=== PATIENT | male | born 1970 | race American Indian/Alaskan Native ===

== ENCOUNTER 2016-06-15 16:41 | Emergency (ER) | payer MEDICAID, OTHER ==
[2016-06-15 17:17] VITALS: BP 124/84
[2016-06-15] MEDS ORDERED: Sodium Chloride 0.9% 10 ML Syringe FLUSH PRN (17:51)
[2016-06-15] MEDS ORDERED: Acetaminophen/HYDROcodone 325-5 MG Tab PO ONE (18:11)
[2016-06-15 18:37] LABS: CHLORIDE,CL 99 mmol/L (101-111); SODIUM,NA 135 mmol/L (135-145)
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
== END 2016-06-15 18:55 ==
LOC: DL.ED 16:41
DX: L03.116 Cellulitis of left lower limb (principal); L03.115 Cellulitis of right lower limb; F10.20 Alcohol dependence, uncomplicated; K21.9 Gastro-esophageal reflux disease without esophagitis; E11.42 Type 2 diabetes mellitus with diabetic polyneuropathy; F17.210 Nicotine dependence, cigarettes, uncomplicated; Z88.8 Allergy status to other drugs, medicaments and biological substances
CPT/HCPCS: 36415; 80053; 82150; 83605; 85025; 87040; 96365; 99284; A9270; J3370; J7050

== ENCOUNTER 2017-01-02 07:16 | Emergency (ER) | payer MEDICAID, OTHER ==
[2017-01-02 07:26] VITALS: BP 156/95
--- NOTE | 2017-01-02 07:46 | EDM.PDOC ---
ED HPI GENERAL MEDICAL PROBLEM - General Chief Complaint: Lower Extremity Injury/Pain Stated Complaint: HOLE IN BOTTOM OF FOOT [phone] Time Seen by Provider: 01/02/17 07:41 Source of Information: Reports: Patient History Limitations: Reports: No Limitations - History of Present Illness INITIAL COMMENTS - FREE TEXT/NARRATIVE: 46 yo [place] Male c/o right foot pain, redness and skin breakdown. PMHx. Diabetes X 18yrs. PSHx. Right toe amputations X 2 Onset: Gradual Onset Date: 12/29/16 Onset Time: 12:00 Duration: Day(s): Location: Reports: Lower Extremity, Right Quality: Reports: Ache Severity: Moderate Improves with: Reports: None Worsens with: Reports: None Context: Reports: Other (Pt. has PMHx. Peripheral Vascular Disease s/p two right toe amputations) Associated Symptoms: Reports: No Other Symptoms Right Feet Pain Score (Numeric/FACES): 8 - Related Data Allergies Allergy/AdvReac Type Severity Reaction Status Date / Time propoxyphene napsylate Allergy Itching Verified 01/02/17 07:27 [From Bailey-Eliazar] fish Allergy Swelling Uncoded 01/02/17 07:27 Home Meds: Home Meds Insulin Aspart [NovoLOG] 8 units SQ TID 09/06/14 [History] Insulin Detemir [Levemir] 15 units SQ BID 09/06/14 [History] Aspirin 1 tab CHEW DAILY 11/30/14 [History] Ibuprofen [Ibuprofen] 1 tab PO TID 11/30/14 [History] Pregabalin [Lyrica] 1 tab PO TID 11/30/14 [History] Lisinopril 10 mg PO DAILY 06/15/16 [History] Venlafaxine [Effexor] 250 mg PO DAILY 06/15/16 [History] Acetaminophen [Tylenol] 650 mg PO ASDIRECTED PRN 01/02/17 [History] Past Medical History Other HEENT History: blurred vision at times Cardiovascular History: Reports: Hypertension Respiratory History: Reports: None Gastrointestinal History: Reports: None Genitourinary History: Reports: None Musculoskeletal History: Reports: Amputation Neurological History: Reports: None Psychiatric History: Reports: None Endocrine/Metabolic History: Reports: Diabetes, Type II Hematologic History: Reports: None Immunologic History: Reports: None Oncologic (Cancer) History: Reports: None Dermatologic History: Reports: None - Infectious Disease History Infectious Disease History: Reports: Chicken Pox - Past Surgical History Head Surgeries/Procedures: Reports: None Musculoskeletal Surgical History: Reports: Amputation, Arthroscopic Knee, Other (See Below) Social & Family History - Tobacco Use Smoking Status *Q: Current Every Day Smoker Years of Tobacco use: 30 Packs/Tins Daily: 0.5 Used Tobacco, but Quit: No Month Tobacco Last Used: 2011 Second Hand Smoke Exposure: No - Caffeine Use Caffeine Use: Reports: Coffee - Alcohol Use Days Per Week of Alcohol Use: 1 Number of Drinks Per Day: 12 Total Drinks Per Week: 12 - Recreational Drug Use Recreational Drug Use: No Recreational Drug Type: Reports: Marijuana/Hashish Recreational Drug Use Frequency: Not Used In Over 6 Months - Living Situation & Occupation Living situation: Reports: Other Review of Systems - Review of Systems Review Of Systems: See Below Constitutional: Reports: No Symptoms Eyes: Reports: No Symptoms Ears: Reports: No Symptoms Nose: Reports: No Symptoms Mouth/Throat: Reports: No Symptoms Respiratory: Reports: No Symptoms Cardiovascular: Reports: No Symptoms GI/Abdominal: Reports: No Symptoms Genitourinary: Reports: No Symptoms Musculoskeletal: Reports: Foot Pain (right foot) Skin: Reports: Erythema Neurological: Reports: No Symptoms Psychiatric: Reports: No Symptoms ED EXAM, GENERAL - Physical Exam Exam: See Below Exam Limited By: No Limitations General Appearance: Alert, WD/WN, No Apparent Distress Eye Exam: Bilateral Eye: PERRL Ears: Normal External Exam Nose: Normal Inspection Throat/Mouth: Normal Inspection Head: Atraumatic Neck: Normal Inspection Respiratory/Chest: No Respiratory Distress Cardiovascular: Normal Peripheral Pulses Peripheral Pulses: 1+: Dorsalis Pedis (L), Dorsalis Pedis (R) GI/Abdominal: Normal Bowel Sounds Back Exam: Normal Inspection Extremities: Slow Capillary Refill (right low extremity), Redness (right dorsal foot) Neurological: Alert, Oriented, CN II-XII Intact, Normal Cognition Psychiatric: Normal Affect Skin Exam: Erythema, Wound/Incision (right foot w/ 3cm shallow skin ulcer w/o drainage) Course - Vital Signs Last Recorded V/S: Last Vital Signs Temp 36.6 C 01/02/17 07:21 Pulse 80 01/02/17 07:21 Resp 16 01/02/17 07:21 BP 156/95 H 01/02/17 07:21 Pulse Ox 96 01/02/17 07:21 - Orders/Labs/Meds Orders: Active Orders 24 hr Category Date Time Status CULTURE WOUND [RM] Stat Lab 01/02/17 07:42 Uncollected Labs: Laboratory Tests 01/02/17 Range/Units 07:55 WBC 12.0 H (5.0-10.0) 10^3/uL RBC 4.08 L (4.6-6.2) 10^6/uL Hgb 12.1 L (14.0-18.0) g/dL Hct 34.8 L (40.0-54.0) % MCV 85.3 (80-100) fL MCH 29.7 (27.0-34.0) pg MCHC 34.8 (33.0-35.0) g/dL Plt Count 203 D (150-450) 10^3/uL Neut % (Auto) 71.2 (42.2-75.2) % Lymph % (Auto) 19.9 L (20.5-50.1) % [place] % (Auto) 6.6 (2-8) % Eos % (Auto) 2.1 (1.0-3.0) % Baso % (Auto) 0.2 (0.0-1.0) % Departure - Departure Time of Disposition: 08:11 Disposition: Home, Self-Care 01 Condition: Fair Clinical Impression: Cellulitis of foot Leukocytosis Qualifiers: Leukocytosis type: unspecified Qualified Code(s): D72.829 - Elevated white blood cell count, unspecified Foreign body in foot, right Qualifiers: Encounter type: initial encounter Qualified Code(s): S90.851A - Superficial foreign body, right foot, initial encounter - Discharge Information Forms: ED Department Discharge Additional Instructions: Keep area clean and dry Soak Once Daily Take Oral Antibiotic AUGMENTING 875mg BID # 20 ( complete all antibiotic) Apply Antibiotic ointment to area BID # 66g F/U w/ Podiatry Dr. Pinon @ [phone] ( Call for appointment) - My Orders Last 24 Hours: My Active Orders 01/02/17 07:42 CULTURE WOUND [RM] Stat - Assessment/Plan Last 24 Hours: My Active Orders 01/02/17 07:42 CULTURE WOUND [RM] Stat
[2017-01-02] MEDS ORDERED: Mupirocin Oint 22 GM Tube TOP ONE (08:17)
== END 2017-01-02 08:39 | disposition home or self-care (01) ==
LOC: DL.ED 07:16
DX: S90.851A Superficial foreign body, right foot, initial encounter (principal); L03.115 Cellulitis of right lower limb; D72.829 Elevated white blood cell count, unspecified; I10 Essential (primary) hypertension; E11.9 Type 2 diabetes mellitus without complications; F17.210 Nicotine dependence, cigarettes, uncomplicated; Z88.8 Allergy status to other drugs, medicaments and biological substances; Z91.013 Allergy to seafood; Z79.4 Long term (current) use of insulin; Z79.82 Long term (current) use of aspirin; Z79.899 Other long term (current) drug therapy; W45.8XXA Other foreign body or object entering through skin, initial encounter
CPT/HCPCS: 36415; 73620; 85025; 87070; 87077; 99284; A9270; 87186

== ENCOUNTER 2017-01-14 00:07 | Emergency (ER) | payer MEDICAID, OTHER ==
[2017-01-14 00:08] VITALS: BP 132/90
[2017-01-14] MEDS ORDERED: Acetaminophen/oxyCODONE 325-5 MG Tab PO ONE ×2 (00:08→01:06)
--- NOTE | 2017-01-14 00:54 | EDM.PDOC ---
ED HPI GENERAL MEDICAL PROBLEM - General Chief Complaint: Skin Complaint Stated Complaint: IN BY AMBULANCE Time Seen by Provider: 01/14/17 00:45 Source of Information: Reports: Patient History Limitations: Reports: No Limitations - History of Present Illness INITIAL COMMENTS - FREE TEXT/NARRATIVE: ED via [facility]. 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 Has been on antibiotic for infection. Is packing wound daily Right Feet Pain Score (Numeric/FACES): 8 - Related Data Allergies Allergy/AdvReac Type Severity Reaction Status Date / Time propoxyphene napsylate Allergy Itching Verified 01/14/17 00:07 [From Bailey-N] fish Allergy Swelling Uncoded 01/14/17 00:07 Home Meds: Home Meds Insulin Aspart [NovoLOG] 8 units SQ TID 09/06/14 [History] Insulin Detemir [Levemir] 15 units SQ BID 09/06/14 [History] Aspirin 1 tab CHEW DAILY 11/30/14 [History] Ibuprofen [Ibuprofen] 1 tab PO TID 11/30/14 [History] Pregabalin [Lyrica] 1 tab PO TID 11/30/14 [History] Lisinopril 10 mg PO DAILY 06/15/16 [History] Venlafaxine [Effexor] 250 mg PO DAILY 06/15/16 [History] Acetaminophen [Tylenol] 650 mg PO ASDIRECTED PRN 01/02/17 [History] Amoxicillin/Clavulanate K [Augmentin 875 MG/125 MG] 1 tab PO ASDIRECTED [History] Past Medical History Other HEENT History: blurred vision at times Cardiovascular History: Reports: Hypertension Respiratory History: Reports: None Gastrointestinal History: Reports: None Genitourinary History: Reports: None Musculoskeletal History: Reports: Amputation Neurological History: Reports: None Psychiatric History: Reports: None Endocrine/Metabolic History: Reports: Diabetes, Type II Hematologic History: Reports: None Immunologic History: Reports: None Oncologic (Cancer) History: Reports: None Dermatologic History: Reports: None - Infectious Disease History Infectious Disease History: Reports: Chicken Pox - Past Surgical History Head Surgeries/Procedures: Reports: None Musculoskeletal Surgical History: Reports: Amputation, Arthroscopic Knee, Other (See Below) Social & Family History - Tobacco Use Smoking Status *Q: Light Tobacco Smoker Years of Tobacco use: 20 Packs/Tins Daily: 0.5 Used Tobacco, but Quit: No Month Tobacco Last Used: 2011 Second Hand Smoke Exposure: No - Caffeine Use Caffeine Use: Reports: Coffee - Alcohol Use Days Per Week of Alcohol Use: 1 Number of Drinks Per Day: 12 Total Drinks Per Week: 12 - Recreational Drug Use Recreational Drug Use: No Recreational Drug Type: Reports: Marijuana/Hashish Recreational Drug Use Frequency: Not Used In Over 6 Months - Living Situation & Occupation Living situation: Reports: Other ED ROS GENERAL - Review of Systems Review Of Systems: See Below Constitutional: Reports: No Symptoms HEENT: Reports: No Symptoms Respiratory: Reports: No Symptoms Cardiovascular: Reports: No Symptoms Endocrine: Reports: No Symptoms GI/Abdominal: Reports: No Symptoms Skin: Reports: Wound (increased size, new on botom fo right foot) ED EXAM, SKIN/RASH Exam: See Below Exam Limited By: No Limitations General Appearance: Alert, Mild Distress Eye Exam: Bilateral Eye: EOMI Ears: Normal External Exam Nose: Normal Inspection Throat/Mouth: Normal Voice Respiratory/Chest: No Respiratory Distress, Lungs Clear, Normal Breath Sounds Cardiovascular: Normal Peripheral Pulses, Regular Rate, Rhythm GI/Abdominal: Soft, Non-Tender Back Exam: Full Range of Motion Extremities: No: Normal Inspection, Redness Neurological: Alert, Oriented, Normal Cognition Psychiatric: Normal Affect Skin: Warm Location, Skin: Lower Extremity, Right Characteristics: Other (5mm x 7mm open cavity between 1st and 2nd toes right foot. pea size callous open plantar right weeping clear yellow fluid, no errythma, no odor to wound, extremity warm slight swelling to right forefoot in comparison to left. no redness. wound edges and extermity clean. ) Associated features: Tenderness, Induration, Weeping Course - Vital Signs Last Recorded V/S: Last Vital Signs Temp 97.4 F 01/14/17 00:07 Pulse 80 01/14/17 00:07 Resp 16 01/14/17 00:07 BP 132/90 01/14/17 00:07 Pulse Ox 99 01/14/17 00:07 - Orders/Labs/Meds Labs: Laboratory Tests 01/14/17 01/14/17 01/14/17 Range/Units 00:35 00:35 00:40 WBC 7.0 (5.0-10.0) 10^3/uL RBC 4.19 L (4.6-6.2) 10^6/uL Hgb 12.5 L (14.0-18.0) g/dL Hct 36.5 L (40.0-54.0) % MCV 87.1 (80-100) fL MCH 29.8 (27.0-34.0) pg MCHC 34.2 (33.0-35.0) g/dL Plt Count 272 (150-450) 10^3/uL Neut % (Auto) 64.6 (42.2-75.2) % Lymph % (Auto) 26.6 (20.5-50.1) % [place] % (Auto) 6.0 (2-8) % Eos % (Auto) 2.7 (1.0-3.0) % Baso % (Auto) 0.1 (0.0-1.0) % Sodium 137 (135-145) mmol/L Potassium 3.8 (3.6-5.0) mmol/L Chloride 103 (101-111) mmol/L Carbon Dioxide 27.0 (21.0-31.0) mmol/L Anion Gap 10.8 BUN 12 (7-18) mg/dL Creatinine 0.9 (0.6-1.3) mg/dL Est Cr Clr Drug Dosing 113.77 mL/min Estimated GFR (MDRD) > 60 BUN/Creatinine Ratio 13.33 Glucose 160 H (74-105) mg/dL Lactic Acid 1.2 (0.5-2.2) mmol/L Calcium 9.3 (8.4-10.2) mg/dl Total Bilirubin 0.5 (0.2-1.0) mg/dL AST 24 (10-42) IU/L ALT 21 (10-60) IU/L Alkaline Phosphatase 79 (42-121) IU/L Total Protein 8.6 H (6.7-8.2) g/dl Albumin 3.9 (3.2-5.5) g/dl Globulin 4.7 Albumin/Globulin Ratio 0.83 Meds: Medications Discontinued Medications Generic Name Dose Route Start Last Admin Trade Name Freq PRN Reason Stop Dose Admin Oxycodone/Acetaminophen 1 tab 01/14/17 01:06 01/14/17 01:10 Percocet 325-5 Mg PO 01/14/17 01:07 1 tab ONETIME ONE Administration Oxycodone/Acetaminophen Confirm 01/14/17 01:55 01/14/17 02:51 Percocet 325-5 Mg Administered 01/14/17 01:56 Not Given Dose 2 tab .ROUTE .STK-MED ONE - Radiology Interpretation Free Text/Narrative:: xray right foot, no osteomylitis - Re-Assessments/Exams Free Text/Narrative Re-Assessment/Exam: 01/15/17 03:15 wounds examined. cleansed, packed with moistened sterile 1/4 packing . apprximately 2" length to wound between toes. covered with telfa and kerlix. Departure - Departure Time of Disposition: 01:46 Disposition: Home, Self-Care 01 Condition: Fair Clinical Impression: Diabetic peripheral neuropathy, Insulin dependent diabetes mellitus Diabetic foot ulcer Qualifiers: Diabetic foot ulcer location: other Diabetes mellitus type: type 1 Laterality: right Non-pressure ulcer stage: unspecified non-pressure ulcer stage Qualified Code(s): E10.621 - Type 1 diabetes mellitus with foot ulcer Foot ulcer, right Qualifiers: Non-pressure ulcer stage: unspecified non-pressure ulcer stage Qualified Code(s ): L97.519 - Non-pressure chronic ulcer of other part of right foot with unspecified severity - Discharge Information Instructions: Diabetes and Foot Care Referrals: PCP,Unobtain [Primary Care Provider] - Forms: ED Department Discharge Additional Instructions: continue wound packing as instructed non weight bearing to right foot- use crutches follow up with surgeon in [place]
[2017-01-14 01:05] LABS: CHLORIDE,CL 103 mmol/L (101-111); SODIUM,NA 137 mmol/L (135-145)
[2017-01-14] MEDS ORDERED: Acetaminophen/oxyCODONE 325-5 MG Tab ONE (01:55)
== END 2017-01-14 02:00 | disposition home or self-care (01) ==
LOC: DL.ED 00:07
DX: E11.621 Type 2 diabetes mellitus with foot ulcer (principal); L97.519 Non-pressure chronic ulcer of other part of right foot with unspecified severity; I10 Essential (primary) hypertension; F17.210 Nicotine dependence, cigarettes, uncomplicated; E11.40 Type 2 diabetes mellitus with diabetic neuropathy, unspecified; Z79.899 Other long term (current) drug therapy; Z88.8 Allergy status to other drugs, medicaments and biological substances; Z91.013 Allergy to seafood; Z79.4 Long term (current) use of insulin
CPT/HCPCS: 36415; 73630; 80053; 83605; 85025; 87040; 87070; 87077; 87186; 99283; A9270

== ENCOUNTER 2017-04-10 12:16 | Emergency (ER) | payer MEDICAID, OTHER ==
[2017-04-10 12:28] VITALS: BP 113/71
--- NOTE | 2017-04-10 12:49 | EDM.PDOC ---
ED HPI GENERAL MEDICAL PROBLEM - General Chief Complaint: Lower Extremity Injury/Pain Stated Complaint: CAME BY [facility] Time Seen by Provider: 04/10/17 12:49 Source of Information: Reports: Patient, EMS, Old Records, Provider (Dr. Tye Pinon), RN, RN Notes Reviewed History Limitations: Reports: No Limitations - History of Present Illness INITIAL COMMENTS - FREE TEXT/NARRATIVE: Arrives by ambulance with c/o right foot pain. Pt being followed by Tye Pinon DPM for chronic Rt foot diabetic ulcer and Hx of osteomyelitis. I called Dr. Pinon to obtain Hx of the pt's tx as he didn't seem to have an understanding himself. He missed his last appt. with her, and missed his Rt foot MRI, but was able to reschedule the MRI and had it yesterday. He has ran out of pain medication, and that is his main complaint today. Pt denies fever, chills, N/V, or redness to the Rt lower leg. He admits to ongoing drainage from the Rt foot ulcer. Onset: Unknown/Unsure Duration: Chronic Location: Reports: Lower Extremity, Right Quality: Reports: Ache Severity: Severe Improves with: Reports: None Worsens with: Reports: Other (wt bearing/walking) Associated Symptoms: Reports: No Other Symptoms Treatments GM: Reports: Other (see below) Right Feet Pain Score (Numeric/FACES): 8 - Related Data Allergies Allergy/AdvReac Type Severity Reaction Status Date / Time propoxyphene napsylate Allergy Itching Verified 01/14/17 00:07 [From Mitchell] fish Allergy Swelling Uncoded 01/14/17 00:07 Home Meds: Home Meds Insulin Aspart [NovoLOG] 8 units SQ TID 09/06/14 [History] Insulin Detemir [Levemir] 15 units SQ BID 09/06/14 [History] Aspirin 1 tab CHEW DAILY 11/30/14 [History] Ibuprofen [Ibuprofen] 1 tab PO TID 11/30/14 [History] Pregabalin [Lyrica] 1 tab PO TID 11/30/14 [History] Lisinopril 10 mg PO DAILY 06/15/16 [History] Venlafaxine [Effexor] 250 mg PO DAILY 06/15/16 [History] Acetaminophen [Tylenol] 650 mg PO ASDIRECTED PRN 01/02/17 [History] Amoxicillin/Clavulanate K [Augmentin 875 MG/125 MG] 1 tab PO ASDIRECTED [History] Past Medical History Other HEENT History: blurred vision at times Cardiovascular History: Reports: Hypertension Respiratory History: Reports: None Gastrointestinal History: Reports: None Genitourinary History: Reports: None Musculoskeletal History: Reports: Amputation Neurological History: Reports: None Psychiatric History: Reports: None Endocrine/Metabolic History: Reports: Diabetes, Type II Hematologic History: Reports: None Immunologic History: Reports: None Oncologic (Cancer) History: Reports: None Dermatologic History: Reports: None - Infectious Disease History Infectious Disease History: Reports: Chicken Pox - Past Surgical History Head Surgeries/Procedures: Reports: None Musculoskeletal Surgical History: Reports: Amputation, Arthroscopic Knee, Other (See Below) Social & Family History - Family History Family Medical History: Noncontributory - Tobacco Use Smoking Status *Q: Current Every Day Smoker Years of Tobacco use: 30 Packs/Tins Daily: 0.5 Used Tobacco, but Quit: No Month Tobacco Last Used: 2011 Second Hand Smoke Exposure: No - Caffeine Use Caffeine Use: Reports: Coffee - Alcohol Use Days Per Week of Alcohol Use: 1 Number of Drinks Per Day: 12 Total Drinks Per Week: 12 - Recreational Drug Use Recreational Drug Use: No Recreational Drug Type: Reports: Marijuana/Hashish Recreational Drug Use Frequency: Not Used In Over 6 Months - Living Situation & Occupation Living situation: Reports: Other Review of Systems - Review of Systems Review Of Systems: ROS reveals no pertinent complaints other than HPI. ED EXAM, GENERAL - Physical Exam Exam: See Below Exam Limited By: No Limitations General Appearance: Alert, No Apparent Distress Throat/Mouth: Normal Voice Respiratory/Chest: No Respiratory Distress Extremities: Increased Warmth (slight increased warmth of Rt lower leg compared to the left, but no erythema or swelling), Other (Rt foot dressing not removed for exam, MRI report from 04/08/17 was reviewed and provided suff. clarification of jing involvment of the infection that would not be apparent on exam.) Neurological: Alert, Oriented, No Motor/Sensory Deficits Psychiatric: Normal Mood Course - Vital Signs Last Recorded V/S: Last Vital Signs Temp 36.8 C 04/10/17 12:21 Pulse 78 04/10/17 12:21 Resp 16 04/10/17 12:21 BP 113/71 04/10/17 12:21 Pulse Ox 100 04/10/17 12:21 - Orders/Labs/Meds Orders: Active Orders 24 hr Category Date Time Status DME for Discharge [COMM] Routine Oth 04/10/17 13:01 Ordered Departure - Departure Time of Disposition: 13:01 Disposition: Home, Self-Care 01 Condition: Fair Clinical Impression: Osteomyelitis of toe of right foot, Right foot pain, DM type 2, uncontrolled, with lower extremity ulcer - Discharge Information Instructions: Crutch Use, [id number], Bone and Joint Infections, Adult, Pain Medicine Instructions, [id number] Forms: ED Department Discharge Additional Instructions: Rx: Percocet 5mg/325mg *Do not drive while under the influence of this medication. Use crutches for non-weight bearing on the right foot. Follow up with Dr. Tye Pinon in podiatry clinic on Friday, as scheduled. - My Orders Last 24 Hours: My Active Orders 04/10/17 13:01 DME for Discharge [COMM] Routine - Assessment/Plan Last 24 Hours: My Active Orders 04/10/17 13:01 DME for Discharge [COMM] Routine
== END 2017-04-10 13:19 | disposition home or self-care (01) ==
LOC: DL.ED 12:16
DX: E11.69 Type 2 diabetes mellitus with other specified complication (principal); M86.9 Osteomyelitis, unspecified; E11.621 Type 2 diabetes mellitus with foot ulcer; L97.519 Non-pressure chronic ulcer of other part of right foot with unspecified severity; I10 Essential (primary) hypertension; F17.210 Nicotine dependence, cigarettes, uncomplicated; Z91.013 Allergy to seafood; Z79.899 Other long term (current) drug therapy; Z88.8 Allergy status to other drugs, medicaments and biological substances; Z79.82 Long term (current) use of aspirin; Z79.4 Long term (current) use of insulin
CPT/HCPCS: 99284

== ENCOUNTER 2017-04-14 13:36 | Inpatient (IN) | payer MEDICAID, OTHER ==
--- NOTE | 2017-04-14 13:49 | EDM.PDOC ---
ED HPI GENERAL MEDICAL PROBLEM - General Stated Complaint: IN BY AMBULANCE Time Seen by Provider: 04/14/17 13:35 Source of Information: Reports: Patient, EMS History Limitations: Reports: No Limitations - History of Present Illness INITIAL COMMENTS - FREE TEXT/NARRATIVE: This 46 yo male patient reports to the ED via [facility] with increased pain, swelling and drainage from his right foot (great toe and 2nd toe). The patient reports his symptoms started 2 weeks ago. The patient was seen in the ED last week and was supposed to see Dr. Pinon today. The patient was attempting to get to the podiatry appointment, but was unable to ambulate due to the pain. Dr. Pinon was consulted and agreed to come to the ED to evaluate the patient. The patient reports he took his last pain medication today, and could not take the pain any longer. Duration: Week(s): (2), Constant, Getting Worse Location: Reports: Lower Extremity, Right Quality: Reports: Ache, Stabbing Severity: Severe Improves with: Reports: None Worsens with: Reports: None Right Feet Pain Score (Numeric/FACES): 10 - Related Data Allergies Allergy/AdvReac Type Severity Reaction Status Date / Time propoxyphene napsylate Allergy Itching Verified 04/14/17 13:42 [From Mitchell] fish Allergy Swelling Uncoded 01/14/17 00:07 Home Meds: Home Meds Insulin Aspart [NovoLOG] 8 units SQ TID 09/06/14 [History] Insulin Detemir [Levemir] 15 units SQ BID 09/06/14 [History] Aspirin 1 tab CHEW DAILY 11/30/14 [History] Ibuprofen [Ibuprofen] 1 tab PO TID 11/30/14 [History] Pregabalin [Lyrica] 1 tab PO TID 11/30/14 [History] Lisinopril 10 mg PO DAILY 06/15/16 [History] Venlafaxine [Effexor] 250 mg PO DAILY 06/15/16 [History] Acetaminophen [Tylenol] 650 mg PO ASDIRECTED PRN 01/02/17 [History] Amoxicillin/Clavulanate K [Augmentin 875 MG/125 MG] 1 tab PO ASDIRECTED [History] Past Medical History Other HEENT History: blurred vision at times Cardiovascular History: Reports: Hypertension Respiratory History: Reports: None Gastrointestinal History: Reports: None Genitourinary History: Reports: None Musculoskeletal History: Reports: Amputation Neurological History: Reports: None Psychiatric History: Reports: None Endocrine/Metabolic History: Reports: Diabetes, Type II Hematologic History: Reports: None Immunologic History: Reports: None Oncologic (Cancer) History: Reports: None Dermatologic History: Reports: None - Infectious Disease History Infectious Disease History: Reports: Chicken Pox - Past Surgical History Head Surgeries/Procedures: Reports: None Musculoskeletal Surgical History: Reports: Amputation, Arthroscopic Knee, Other (See Below) Social & Family History - Family History Family Medical History: Noncontributory - Tobacco Use Smoking Status *Q: Current Every Day Smoker Years of Tobacco use: 30 Packs/Tins Daily: 0.5 Used Tobacco, but Quit: No Month Tobacco Last Used: 2011 Second Hand Smoke Exposure: No - Caffeine Use Caffeine Use: Reports: Coffee - Alcohol Use Days Per Week of Alcohol Use: 1 Number of Drinks Per Day: 12 Total Drinks Per Week: 12 - Recreational Drug Use Recreational Drug Use: No Recreational Drug Type: Reports: Marijuana/Hashish Recreational Drug Use Frequency: Not Used In Over 6 Months - Living Situation & Occupation Living situation: Reports: Other Review of Systems - Review of Systems Review Of Systems: ROS reveals no pertinent complaints other than HPI. ED EXAM, GENERAL - Physical Exam Exam: See Below Exam Limited By: No Limitations General Appearance: Alert, WD/WN, Moderate Distress Eye Exam: Bilateral Eye: EOMI, Normal Inspection, PERRL Ears: Normal External Exam, Normal Canal, Hearing Grossly Normal, Normal TMs Nose: Normal Inspection, Normal Mucosa, No Blood Throat/Mouth: Normal Inspection, Normal Lips, Normal Teeth, Normal Gums, Normal Oropharynx, Normal Voice, No Airway Compromise Head: Atraumatic, Normocephalic Neck: Normal Inspection, Supple, Non-Tender, Full Range of Motion Respiratory/Chest: No Respiratory Distress, Lungs Clear, Normal Breath Sounds, No Accessory Muscle Use, Chest Non-Tender Cardiovascular: Normal Peripheral Pulses, Regular Rate, Rhythm, No Edema, No Gallop, No JVD, No Murmur, No Rub GI/Abdominal: Normal Bowel Sounds, Soft, Non-Tender, No Organomegaly, No Distention, No Abnormal Bruit, No Mass (Male) Exam: Deferred Rectal (Males) Exam: Deferred Back Exam: Normal Inspection, Full Range of Motion, NT Extremities: Other (Swelling of the right great toe and 2nd toe with bloody purulent drainage. ) Neurological: Alert, Oriented, CN II-XII Intact, Normal Cognition, Normal Gait, Normal Reflexes, No Motor/Sensory Deficits Psychiatric: Normal Affect, Normal Mood Skin Exam: Wound/Incision Lymphatic: No Adenopathy Course - Vital Signs Last Recorded V/S: Last Vital Signs Temp 36.7 C 04/14/17 13:38 Pulse 65 04/14/17 13:38 Resp 16 04/14/17 13:38 BP 177/71 H 04/14/17 13:38 Pulse Ox 100 04/14/17 13:38 - Orders/Labs/Meds Orders: Active Orders 24 hr Category Date Time Status CULTURE BLOOD [BC] Stat Lab 04/14/17 13:40 Received CULTURE BLOOD [BC] Stat Lab 04/14/17 13:45 Received DRUG SCREEN URINE BIORAD [URCHEM] Stat Lab 04/14/17 13:32 Uncollected UA W/MICROSCOPIC [URIN] Stat Lab 04/14/17 13:32 Uncollected Vancomycin 1.5 gm Med 04/14/17 14:01 Ordered Sodium Chloride 0.9% [Normal Saline] 500 ml IV ONETIME Blood Culture x2 Reflex Set [OM.PC] Stat Oth 04/14/17 13:31 Ordered Medication Orders Vancomycin HCl 1.5 gm/ Sodium (Chloride) 500 mls @ 334 mls/hr IV ONETIME ONE Stop: 04/14/17 15:30 Last Admin: 04/14/17 14:21 Dose: 334 mls/hr Labs: Laboratory Tests 04/14/17 04/14/17 04/14/17 Range/Units 13:40 13:40 13:40 WBC 10.7 H (5.0-10.0) 10^3/uL RBC 4.68 (4.6-6.2) 10^6/uL Hgb 13.3 L (14.0-18.0) g/dL Hct 39.0 L (40.0-54.0) % MCV 83.3 D (80-100) fL MCH 28.4 (27.0-34.0) pg MCHC 34.1 (33.0-35.0) g/dL Plt Count 382 D (150-450) 10^3/uL Neut % (Auto) 81.2 H (42.2-75.2) % Lymph % (Auto) 12.8 L (20.5-50.1) % [place] % (Auto) 4.3 (2-8) % Eos % (Auto) 1.5 (1.0-3.0) % Baso % (Auto) 0.2 (0.0-1.0) % Add Manual Diff Yes Neutrophils % (Manual) 87 H (42-75) % Lymphocytes % (Manual) 10 L (20-50) % Monocytes % (Manual) 2 (2-8) % Eosinophils % (Manual) 1 (1-3) % Sodium 132 L (135-145) mmol/L Potassium 4.0 (3.6-5.0) mmol/L Chloride 99 L (101-111) mmol/L Carbon Dioxide 25.0 (21.0-31.0) mmol/L Anion Gap 12.0 BUN 11 (7-18) mg/dL Creatinine 0.9 (0.6-1.3) mg/dL Est Cr Clr Drug Dosing 113.92 mL/min Estimated GFR (MDRD) > 60 BUN/Creatinine Ratio 12.22 Glucose 309 H (74-105) mg/dL Lactic Acid 1.5 (0.5-2.2) mmol/L Calcium 8.7 (8.4-10.2) mg/dl Total Bilirubin 0.3 (0.2-1.0) mg/dL AST 41 (10-42) IU/L ALT 38 (10-60) IU/L Alkaline Phosphatase 101 (42-121) IU/L Total Protein 8.9 H (6.7-8.2) g/dl Albumin 2.8 L (3.2-5.5) g/dl Globulin 6.1 Albumin/Globulin Ratio 0.46 Meds: Medications Generic Name Dose Route Start Last Admin Trade Name Freq PRN Reason Stop Dose Admin Vancomycin HCl 1.5 gm/ Sodium 500 mls @ 334 mls/hr 04/14/17 14:01 04/14/17 14 :21 Chloride IV 04/14/17 15:30 334 mls/hr ONETIME ONE Administration Discontinued Medications Generic Name Dose Route Start Last Admin Trade Name Freq PRN Reason Stop Dose Admin Hydromorphone HCl 1 mg 04/14/17 14:14 04/14/17 14:20 Dilaudid IVPUSH 04/14/17 14:15 1 mg ONETIME ONE Administration Departure - Departure Time of Disposition: 14:29 Disposition: Admitted As Inpatient 67 Condition: Fair Clinical Impression: Osteomyelitis of right foot Qualifiers: Osteomyelitis type: unspecified type Qualified Code(s): M86.9 - Osteomyelitis, unspecified - Discharge Information Care Plan Goals: Discussed the examination, labs and history with Dr. Kenny. Dr. Kenny accepted the patient and will coordinate care with Dr. Pinon for continued evaluation and management of the patient as an inpatient. - My Orders Last 24 Hours: My Active Orders 04/14/17 13:31 Blood Culture x2 Reflex Set [OM.PC] Stat 04/14/17 13:32 DRUG SCREEN URINE BIORAD [URCHEM] Stat UA W/MICROSCOPIC [URIN] Stat 04/14/17 13:40 CULTURE BLOOD [BC] Stat 04/14/17 13:45 CULTURE BLOOD [BC] Stat 04/14/17 14:01 Vancomycin 1.5 gm Sodium Chloride 0.9% [Normal Saline] 500 ml IV ONETIME - Assessment/Plan Last 24 Hours: My Active Orders 04/14/17 13:31 Blood Culture x2 Reflex Set [OM.PC] Stat 04/14/17 13:32 DRUG SCREEN URINE BIORAD [URCHEM] Stat UA W/MICROSCOPIC [URIN] Stat 04/14/17 13:40 CULTURE BLOOD [BC] Stat 04/14/17 13:45 CULTURE BLOOD [BC] Stat 04/14/17 14:01 Vancomycin 1.5 gm Sodium Chloride 0.9% [Normal Saline] 500 ml IV ONETIME
[2017-04-14] MEDS ORDERED: Vancomycin 1.5 GM in Sodium Chloride 0.9% 500 ML IV ONE (14:01)
[2017-04-14 14:13] LABS: CHLORIDE,CL 99 mmol/L (101-111); SODIUM,NA 132 mmol/L (135-145)
[2017-04-14] MEDS ORDERED: HYDROmorphone 1 MG/ML Syringe IVPUSH ONE (14:14)
--- NOTE | 2017-04-14 15:22 | PCM.HP ---
H&P History of Present Illness - General Date of Service: 04/14/17 Admit Problem/Dx: Right foot nonhealing wound - History of Present Illness Initial Comments - Free Text/Narative: The patient is a 46-year-old gentleman who has a history of diabetes. He developed a foot on the right first and second toe 1-2 months prior to this admission. He has been following up with podiatry, was noted to have likely osteomyelitis and treated as an outpatient with the clindamycin. He was taking Percocet for pain control. The patient has been experiencing increased pain, drainage from the right first and second toe. Came in today to the emergency room. The pain is moderate to severe somewhat better with Percocet but not completely relieved. Worse when stepping on it. Right Feet Pain Score (Numeric/FACES): 10 - Related Data Allergies/Adverse Reactions: Allergies Allergy/AdvReac Type Severity Reaction Status Date / Time propoxyphene napsylate Allergy Itching Verified 04/14/17 15:18 [From [facility]] fish Allergy Swelling Uncoded 01/14/17 00:07 Home Medications: Home Meds Insulin Aspart [NovoLOG] 8 units SQ TID 09/06/14 [History] Insulin Detemir [Levemir] 15 units SQ BID 09/06/14 [History] Aspirin 1 tab CHEW DAILY 11/30/14 [History] Ibuprofen [Ibuprofen] 1 tab PO TID 11/30/14 [History] Pregabalin [Lyrica] 1 tab PO TID 11/30/14 [History] Lisinopril 10 mg PO DAILY 06/15/16 [History] Venlafaxine [Effexor] 250 mg PO DAILY 06/15/16 [History] Acetaminophen [Tylenol] 650 mg PO ASDIRECTED PRN 01/02/17 [History] Amoxicillin/Clavulanate K [Augmentin 875 MG/125 MG] 1 tab PO ASDIRECTED [History] Past Medical History Other HEENT History: blurred vision at times Cardiovascular History: Reports: Hypertension Respiratory History: Reports: None Gastrointestinal History: Reports: None Genitourinary History: Reports: None Musculoskeletal History: Reports: Amputation Neurological History: Reports: None Psychiatric History: Reports: None Endocrine/Metabolic History: Reports: Diabetes, Type II Hematologic History: Reports: None Immunologic History: Reports: None Oncologic (Cancer) History: Reports: None Dermatologic History: Reports: None - Infectious Disease History Infectious Disease History: Reports: Chicken Pox - Past Surgical History Head Surgeries/Procedures: Reports: None Musculoskeletal Surgical History: Reports: Amputation, Arthroscopic Knee, Other (See Below) Social & Family History - Family History Family Medical History: Noncontributory - Tobacco Use Smoking Status *Q: Current Every Day Smoker Years of Tobacco use: 30 Packs/Tins Daily: 0.5 Used Tobacco, but Quit: No Month Tobacco Last Used: 2011 Second Hand Smoke Exposure: No - Caffeine Use Caffeine Use: Reports: Coffee - Alcohol Use Days Per Week of Alcohol Use: 1 Number of Drinks Per Day: 12 Total Drinks Per Week: 12 - Recreational Drug Use Recreational Drug Use: No Recreational Drug Type: Reports: Marijuana/Hashish Recreational Drug Use Frequency: Not Used In Over 6 Months - Living Situation & Occupation Living situation: Reports: Other H&P Review of Systems - Review of Systems: Review Of Systems: See Below General: Reports: Chills. Denies: Fever Pulmonary: Denies: Shortness of Breath Cardiovascular: Denies: Chest Pain Gastrointestinal: Denies: Abdominal Pain Genitourinary: Denies: Dysuria Exam - Exam Exam: See Below - Vital Signs Vital Signs: Last Vital Signs Temp 36.8 C 04/14/17 15:00 Pulse 66 04/14/17 15:00 Resp 20 04/14/17 15:00 BP 118/72 04/14/17 15:00 Pulse Ox 100 04/14/17 15:00 Weight: 87.18 kg - Exam General: Alert, Oriented Neck: Supple Lungs: Clear to Auscultation, Normal Respiratory Effort Cardiovascular: Regular Rate, Regular Rhythm GI/Abdominal Exam: Normal Bowel Sounds, Soft, Non-Tender Extremities: Other (Right foot bandaged) Skin: Other (Multiple tattoos) Neuro Extensive - Mental Status: Alert, Oriented x3, Normal Mood/Affect Psychiatric: Alert, Normal Affect, Normal Mood - Patient Data Result Diagrams: 04/14/17 13:40 04/14/17 13:40 *Q Meaningful Use (ADM) - VTE *Q VTE Criteria *Q: - Stroke *Q Stroke Criteria *Q: - AMI *Q AMI Criteria *Q: Problem List Initiated/Reviewed/Updated: Yes Orders Last 24hrs: Active Orders 24 hr Category Date Time Status Glucose [Blood Glucose Check, Bedside] [RC] QIDACANDBED Care 04/14/17 15:11 Ordered Notify Provider Consults [RC] ASDIRECTED Care 04/14/17 15:16 Ordered Consult to Physician [CONS] Routine Cons 04/14/17 15:14 Ordered BASIC METABOLIC PANEL,BMP [CHEM] AM Lab 04/15/17 05:15 Ordered CBC WITH AUTO DIFF [HEME] AM Lab 04/15/17 05:15 Ordered Aspirin Med 04/15/17 09:00 Ordered 1 tab CHEW DAILY Ibuprofen [Motrin 100 MG/5 ML Susp] Med 04/14/17 15:15 Ordered 600 mg PO Q6H Insulin Aspart [NovoLOG] Med 04/14/17 17:00 Ordered See Protocol SUBCUT TIDAC Insulin Detemir Med 04/14/17 21:00 Ordered 15 units SQ BID Lisinopril [Prinivil] Med 04/15/17 09:00 Ordered 10 mg PO DAILY Morphine Med 04/14/17 15:12 Ordered 1 mg IVPUSH Q4H PRN Piperacillin/Tazobactam [Zosyn] 3.375 gm Med 04/14/17 15:15 Ordered Sodium Chloride 0.9% [Normal Saline] 100 ml IV Q6H Pregabalin Med 04/14/17 21:00 Ordered 1 tab PO TID Vancomycin Pharmacy to Dose [Pharmacy to Dose - Med 04/14/17 15:15 Ordered Vancomycin] 1 dose .XX ASDIRECTED Venlafaxine [Effexor] Med 04/15/17 09:00 Ordered 250 mg PO DAILY oxyCODONE Med 04/14/17 15:07 Ordered 5 mg PO Q6H PRN Blood Culture x2 Reflex Set [OM.PC] Stat Oth 04/14/17 15:11 Ordered Medication Orders Aspirin (Aspirin) 81 mg CHEW DAILY [facility] Vancomycin HCl 1.5 gm/ Sodium (Chloride) 500 mls @ 334 mls/hr IV ONETIME ONE Stop: 04/14/17 15:30 Last Admin: 04/14/17 14:21 Dose: 334 mls/hr Piperacillin Sod/Tazobactam (Sod 3.375 gm/ Sodium Chloride) 100 mls @ 200 mls/ hr IV Q6HR [facility] Ibuprofen (Motrin 100 Mg/5 Ml Susp) 600 mg PO Q6H [facility] Insulin Aspart (Novolog) 0 unit SUBCUT TIDAC [facility] PRN Reason: Protocol Insulin Detemir (Levemir) 15 unit SUBCUT BID [facility] Lisinopril (Prinivil) 10 mg PO DAILY [facility] Morphine Sulfate (Morphine) 1 mg IVPUSH Q4H PRN PRN Reason: severe pain Oxycodone HCl (Oxycodone) 5 mg PO Q6H PRN PRN Reason: Pain Pregabalin (Lyrica) 200 mg PO TID [facility] Vancomycin HCl (Pharmacy To Dose - Vancomycin) 1 dose .XX ASDIRECTED [facility] Venlafaxine HCl (Effexor) 250 mg PO DAILY [facility] Assessment/Plan Comment:: #1 right foot diabetic wound and likely osteomyelitis In the past multiple bacteria grew out, the patient has been on outpatient clindamycin. Will obtain blood cultures and wound culture when podiatry will be amputating. Start empirically Zosyn and vancomycin The patient is from an area where MRSA is highly prevalent Consulted podiatry Dr. Pinon Plan for total amputation in the morning. Will keep nothing by mouth after midnight. #2 diabetes Will use Lantus and NovoLog combination Follow blood sugars use supplemental insulin as needed Continue BERNARDA inhibitor #3 pain control try to minimize narcotics Continue Lyrica Start scheduled Motrin When necessary Percocet and IV morphine #4 smoking cessation discussed Will use nicotine patch #5 DVT prophylaxis with subcutaneous heparin
--- NOTE | 2017-04-14 15:23 | PCM.CONS ---
H&P History of Present Illness - General Date of Service: 04/14/17 Admit Problem/Dx: Right foot diabetic ulcer with infection Source of Information: Patient History Limitations: Reports: No Limitations - History of Present Illness Initial Comments - Free Text/Narative: 46 y/o Diabetic male presents to ED today with right foot increased pain, drainage, and malodor to wound on plantar foot. I have seen him in the past for this wound, last a few weeks ago and he was placed on Clindamycin at that time which he reports he just took the last tab yesterday. He has noticed a significant amount of increased pain to the foot, where he cannot even put any weight on the foot now. He has been using his cam boot and crutches. New drainage which is greenish since a few days ago, also 2nd toe is now swollen since last week. He has also noticed a smell from the wound that also started last week. He did get the MRI on Apr 08. He has h/o 3rd toe amputation done in [place]. Right Feet Pain Score (Numeric/FACES): 10 - Related Data Allergies/Adverse Reactions: Allergies Allergy/AdvReac Type Severity Reaction Status Date / Time propoxyphene napsylate Allergy Itching Verified 04/14/17 15:18 [From Mitchell] fish Allergy Swelling Uncoded 01/14/17 00:07 Home Medications: Home Meds Insulin Aspart [NovoLOG] 8 units SQ TID 09/06/14 [History] Insulin Detemir [Levemir] 15 units SQ BID 09/06/14 [History] Aspirin 1 tab CHEW DAILY 11/30/14 [History] Ibuprofen [Ibuprofen] 1 tab PO TID 11/30/14 [History] Pregabalin [Lyrica] 1 tab PO TID 11/30/14 [History] Lisinopril 10 mg PO DAILY 06/15/16 [History] Venlafaxine [Effexor] 250 mg PO DAILY 06/15/16 [History] Acetaminophen [Tylenol] 650 mg PO ASDIRECTED PRN 01/02/17 [History] Amoxicillin/Clavulanate K [Augmentin 875 MG/125 MG] 1 tab PO ASDIRECTED [History] Acetaminophen/oxyCODONE [Percocet 325-5 MG] 1 tab PO Q6H 04/14/17 [History] Clindamycin HCl [Cleocin] 300 mg PO DAILY 04/14/17 [History] Mirtazapine [Mirtazapine] 15 mg PO DAILY 04/14/17 [History] Past Medical History Other HEENT History: blurred vision at times Cardiovascular History: Reports: Hypertension Respiratory History: Reports: None Gastrointestinal History: Reports: None Genitourinary History: Reports: None Musculoskeletal History: Reports: Amputation Neurological History: Reports: None Psychiatric History: Reports: None Endocrine/Metabolic History: Reports: Diabetes, Type II Hematologic History: Reports: None Immunologic History: Reports: None Oncologic (Cancer) History: Reports: None Dermatologic History: Reports: None - Infectious Disease History Infectious Disease History: Reports: Chicken Pox - Past Surgical History Head Surgeries/Procedures: Reports: None Musculoskeletal Surgical History: Reports: Amputation, Arthroscopic Knee, Other (See Below) Social & Family History - Family History Family Medical History: Noncontributory - Tobacco Use Smoking Status *Q: Current Every Day Smoker Years of Tobacco use: 30 Packs/Tins Daily: 0.5 Used Tobacco, but Quit: No Month Tobacco Last Used: 2011 Second Hand Smoke Exposure: No - Caffeine Use Caffeine Use: Reports: Coffee - Alcohol Use Days Per Week of Alcohol Use: 1 Number of Drinks Per Day: 12 Total Drinks Per Week: 12 - Recreational Drug Use Recreational Drug Use: No Recreational Drug Type: Reports: Marijuana/Hashish Recreational Drug Use Frequency: Not Used In Over 6 Months - Living Situation & Occupation Living situation: Reports: Other H&P Review of Systems - Review of Systems: Review Of Systems: ROS reveals no pertinent complaints other than HPI. General: Reports: No Symptoms Musculoskeletal: Reports: Foot Pain Skin: Reports: Erythema, Wound Exam - Exam Exam: See Below - Vital Signs Vital Signs: Last Vital Signs Temp 36.8 C 04/14/17 15:00 Pulse 66 04/14/17 15:00 Resp 20 04/14/17 15:00 BP 118/72 04/14/17 15:00 Pulse Ox 100 04/14/17 15:00 Weight: 87.18 kg - Exam General: Alert, Oriented Physical Exam Comments:: Right foot with ulceration plantar ball of foot sub 2nd met head area which is deep and does probe today to bone, there is purulent drainage expressable from the foot, no soft tissue crepitus today. Erythema to 2nd toe with erythema extending proximally up foot 2 cm on dorsal foot, 2nd toe is swollen and painful. Severe pain with palpation to arelis wound area and 2nd digit, no pain extending proximally up foot/ankle. - Patient Data Lab Results Last 24 hrs: Laboratory Results - last 24 hr 04/14/17 04/14/17 04/14/17 Range/Units 13:40 13:40 13:40 WBC 10.7 H (5.0-10.0) 10^3/uL RBC 4.68 (4.6-6.2) 10^6/uL Hgb 13.3 L (14.0-18.0) g/dL Hct 39.0 L (40.0-54.0) % MCV 83.3 D (80-100) fL MCH 28.4 (27.0-34.0) pg MCHC 34.1 (33.0-35.0) g/dL Plt Count 382 D (150-450) 10^3/uL Neut % (Auto) 81.2 H (42.2-75.2) % Lymph % (Auto) 12.8 L (20.5-50.1) % [place] % (Auto) 4.3 (2-8) % Eos % (Auto) 1.5 (1.0-3.0) % Baso % (Auto) 0.2 (0.0-1.0) % Add Manual Diff Yes Neutrophils % (Manual) 87 H (42-75) % Lymphocytes % (Manual) 10 L (20-50) % Monocytes % (Manual) 2 (2-8) % Eosinophils % (Manual) 1 (1-3) % Sodium 132 L (135-145) mmol/L Potassium 4.0 (3.6-5.0) mmol/L Chloride 99 L (101-111) mmol/L Carbon Dioxide 25.0 (21.0-31.0) mmol/L Anion Gap 12.0 BUN 11 (7-18) mg/dL Creatinine 0.9 (0.6-1.3) mg/dL Est Cr Clr Drug Dosing 113.92 mL/min Estimated GFR (MDRD) > 60 BUN/Creatinine Ratio 12.22 Glucose 309 H (74-105) mg/dL Lactic Acid 1.5 (0.5-2.2) mmol/L Calcium 8.7 (8.4-10.2) mg/dl Total Bilirubin 0.3 (0.2-1.0) mg/dL AST 41 (10-42) IU/L ALT 38 (10-60) IU/L Alkaline Phosphatase 101 (42-121) IU/L Total Protein 8.9 H (6.7-8.2) g/dl Albumin 2.8 L (3.2-5.5) g/dl Globulin 6.1 Albumin/Globulin Ratio 0.46 Result Diagrams: 04/14/17 13:40 04/14/17 13:40 Imaging Impressions Last 24 hrs: MRI Mar 2017 reveals increased signal to 2nd digit and distal metatarsal with small joint effusion at 2nd MTPJ, 3rd digit and partial metatarsal amputation. Consult PN Assessment/Plan Procedures: Procedures ASSAY OF AMYLASE (06/15/16) ASSAY OF ETHANOL (09/16/13) ASSAY OF LACTIC ACID (01/14/17) ASSAY OF TROPONIN QUANT (11/30/14) BLOOD CULTURE FOR BACTERIA (01/14/17) CHEST X-RAY 1 VIEW FRONTAL (11/30/14) COMPLETE CBC W/AUTO DIFF WBC (01/14/17) COMPREHEN METABOLIC PANEL (01/14/17) CT HEAD/BRAIN W/O DYE (08/14/13) CULTURE AEROBIC IDENTIFY (01/14/17) CULTURE OTHR SPECIMN AEROBIC (01/14/17) ELECTROCARDIOGRAM TRACING (11/30/14) EMERGENCY DEPT VISIT (04/10/17) EMERGENCY DEPT VISIT (01/14/17) EMERGENCY DEPT VISIT (01/02/17) EMERGENCY DEPT VISIT (11/30/14) EMERGENCY DEPT VISIT (09/06/14) EMERGENCY DEPT VISIT (09/16/13) EMERGENCY DEPT VISIT (08/14/13) MICROBE SUSCEPTIBLE KEYLA (01/14/17) MRI LOWER EXTREMITY W/O DYE (04/08/17) REAGENT STRIP/BLOOD GLUCOSE (09/16/13) ROUTINE VENIPUNCTURE (01/14/17) RPR F/E/E/N/L/M 2.5 CM/< (08/14/13) THER/PROPH/DIAG IV INF INIT (06/15/16) URINALYSIS AUTO W/SCOPE (11/30/14) X-RAY EXAM OF FOOT (01/14/17) X-RAY EXAM OF FOOT (01/02/17) (1) Cellulitis of foot SNOMED Code(s): 498734970 Code(s): L03.119 - CELLULITIS OF UNSPECIFIED PART OF LIMB (2) DM type 2, uncontrolled, with lower extremity ulcer SNOMED Code(s): 352482693 Code(s): E11.622 - TYPE 2 DIABETES MELLITUS WITH OTHER SKIN ULCER; E11.65 - TYPE 2 DIABETES MELLITUS WITH HYPERGLYCEMIA; L97.909 - NON-PRS CHRONIC ULC UNSP PRT OF UNSP LOW LEG W UNSP SEVERITY (3) Osteomyelitis of right foot SNOMED Code(s): 5038650283569870 Code(s): M86.9 - OSTEOMYELITIS, UNSPECIFIED Qualifiers: Osteomyelitis type: unspecified type Qualified Code(s): M86.9 - Osteomyelitis, unspecified Problem List Initiated/Reviewed/Updated: Yes Plan: 46 y/o DM II male with right foot diabetic ulceration with osteomyelitis, plan for right foot 2nd digit and partial 2nd metatarsal amputation tomorrow AM 0630. NPO tonight after midnight. dry dressing on foot now, keep intact and must be NWB to the Right foot with crutches. IV vanco given in ED today, will plan on IV antibiotics for him after surgery, I will do deep culture in OR tomorrow. I am expecting his pain to be reduced significantly once we get the toe removed. Will plan to be inpatient on IV antibiotics for a few days post-op , depending on how the foot looks intra-operatively.
[2017-04-14] MEDS ORDERED: Zolpidem 5 MG Tab PO PRN (16:10)
[2017-04-14] MEDS ORDERED: Ondansetron 4 MG/2 ML SDV IVPUSH PRN (16:10)
[2017-04-14] MEDS ORDERED: Sodium Chloride 0.9% 1,000 ML IV SCH (16:15)
[2017-04-14] MEDS: oxyCODONE 5 MG Tab PO PRN ×2 (16:59→23:53)
[2017-04-14] MEDS: Ibuprofen 600 MG Tab PO SCH ×2 (18:15→23:55)
[2017-04-14] MEDS: Nicotine 14 MG/24 Hr Patch TRDERM SCH (18:17)
[2017-04-14] MEDS: Insulin Aspart 100 Units/ML 3 ML Pen SUBCUT SCH (18:18)
[2017-04-14] MEDS: Piperacillin/Tazobactam 3.375 GM in Sodium Chloride 0.9% 100 ML IV SCH (18:18)
[2017-04-14] MEDS: Morphine 2 MG/ML Syringe IVPUSH PRN (18:43)
[2017-04-14] MEDS: Insulin Detemir 100 Units/ML 3 ML Pen SUBCUT SCH (22:49)
[2017-04-14] MEDS: Pregabalin 50 MG Cap PO SCH (22:52)
[2017-04-14] MEDS: Heparin Sodium 5,000 Units/ML Vial SUBCUT SCH (22:52)
[2017-04-14] MEDS: Vancomycin 1.5 GM in Sodium Chloride 0.9% 500 ML IV SCH (23:19)
[2017-04-15] MEDS: Piperacillin/Tazobactam 3.375 GM in Sodium Chloride 0.9% 100 ML IV SCH ×4 (01:28→17:35)
[2017-04-15] MEDS ORDERED: Vancomycin 1 GM SDV ONE (04:46)
[2017-04-15] MEDS: Vancomycin 1.5 GM in Sodium Chloride 0.9% 500 ML IV SCH ×3 (05:10→22:22)
[2017-04-15] MEDS: Sodium Chloride 0.9% 10 ML Syringe FLUSH PRN ×4 (05:27→22:21)
[2017-04-15] MEDS: Morphine 2 MG/ML Syringe IVPUSH PRN ×3 (05:27→20:11)
[2017-04-15] MEDS: Heparin Sodium 5,000 Units/ML Vial SUBCUT SCH ×3 (06:20→22:20)
[2017-04-15] MEDS: Ibuprofen 600 MG Tab PO SCH ×3 (06:20→17:34)
[2017-04-15] MEDS ORDERED: Lidocaine 1% 30 ML SDV ONE (06:30)
[2017-04-15] MEDS ORDERED: Bupivacaine 0.5% 10 ML SDV ONE (06:30)
[2017-04-15] MEDS ORDERED: Gentamicin 40 MG/ML 2 ML Vial ONE ×4 (06:44→08:26)
[2017-04-15] MEDS ORDERED: Bupivacaine 0.5% 10 ML SDV INJECT ONE ×4 (07:09→16:01)
[2017-04-15] MEDS ORDERED: Lidocaine 1% 30 ML SDV INJECT ONE ×4 (07:09→16:01)
[2017-04-15 08:18] LABS: CHLORIDE,CL 104 mmol/L (101-111); SODIUM,NA 134 mmol/L (135-145)
--- NOTE | 2017-04-15 09:00 | PCM.OPNOTE ---
- General Post-Op/Procedure Note Date of Surgery/Procedure: 04/15/17 Operative Procedure(s): right foot infection I&D with 2nd digit and partial 2nd metatarsal amputation and wash-out Pre Op Diagnosis: right foot diabetic foot infection with ulcer and osteomyelitis Post-Op Diagnosis: sofia Anesthesia Technique: Local, MAC Primary Surgeon: Katey Pinon Anesthesia Provider: Brady Ryan EBL in mLs: 50 Complications: none Condition: Good Free Text/Narrative:: Intake & Output 04/14/17 04/15/17 04/15/17 22:59 06:59 14:59 Intake Total 100 100 100 Balance 100 100 100 Pt tolerated procedure well and with vascular status intact to right foot after deflation of ankle tourniquet. TT 56 mins. pre and post irrigation/debridement cultures performed. 2nd toe and metatarsal sent to pathology with proximal margins marked in purple ink. He is to be NWB to surgical foot at all times with crutches, he does have crutches at bedside. Elevate to heart level. Keep dressing clean, dry, intact. Can adjust manjula wrap if he is complaining of dressing too tight. Continue IV antibiotics vanc and zosyn. I will come check on patient tonight and also tomorrow AM.
--- NOTE | 2017-04-15 10:10 | PCM.PN ---
- General Info Date of Service: 04/15/17 Admission Dx/Problem (Free Text): Right foot diabetic ulcer with infection Subjective Update: The patient had surgery to [facility] amputation of the second toe on the right foot. He has mild to moderate pain in the area. Feeling hungry and ready to eat. No chills, shortness of breath, chest pain. - Patient Data Vitals - Most Recent: Last Vital Signs Temp 36.9 C 04/15/17 05:00 Pulse 58 L 04/15/17 05:00 Resp 20 04/15/17 05:00 BP 96/65 04/15/17 05:00 Pulse Ox 98 04/15/17 08:50 Weight - Most Recent: 87.18 kg I&O - Last 24 Hours: Intake & Output 04/14/17 04/15/17 04/15/17 22:59 06:59 14:59 Intake Total 100 100 100 Balance 100 100 100 Lab Results Last 24 Hours: Laboratory Results - last 24 hr 04/14/17 04/14/17 04/14/17 Range/Units 17:00 19:28 19:28 WBC (5.0-10.0) 10^3/uL RBC (4.6-6.2) 10^6/uL Hgb (14.0-18.0) g/dL Hct (40.0-54.0) % MCV (80-100) fL MCH (27.0-34.0) pg MCHC (33.0-35.0) g/dL Plt Count (150-450) 10^3/uL Neut % (Auto) (42.2-75.2) % Lymph % (Auto) (20.5-50.1) % [place] % (Auto) (2-8) % Eos % (Auto) (1.0-3.0) % Baso % (Auto) (0.0-1.0) % Sodium (135-145) mmol/L Potassium (3.6-5.0) mmol/L Chloride (101-111) mmol/L Carbon Dioxide (21.0-31.0) mmol/L Anion Gap BUN (7-18) mg/dL Creatinine (0.6-1.3) mg/dL Est Cr Clr Drug Dosing mL/min Estimated GFR (MDRD) Glucose (74-105) mg/dL POC Glucose 323 H (70-105) mg/dl Calcium (8.4-10.2) mg/dl Urine Color Yellow (YELLOW) Urine Appearance Slightly cloudy (CLEAR) Urine pH 6.0 (5.0-9.0) Ur Specific [place] 1.025 (1.005-1.030) Urine Protein Trace H (NEGATIVE) Urine Glucose (UA) >=1000 H (NEGATIVE) Urine Ketones 15 H (NEGATIVE) Urine Occult Blood Trace-intact H (NEGATIVE) Urine Nitrite Negative (NEGATIVE) Urine Bilirubin Negative (NEGATIVE) Urine Urobilinogen 0.2 (0.2-1.0) mg/dL Ur Leukocyte Esterase Negative (NEGATIVE) Urine RBC 0-5 /HPF Urine WBC 5-10 H (0-5/HPF) /HPF Ur Epithelial Cells Rare /HPF Urine Bacteria Rare (0-FEW/HPF) /HPF Urine Mucus Rare /LPF Urine Opiates Screen Negative (NEGATIVE) Ur Oxycodone Screen Positive H (NEGATIVE) Urine Methadone Screen Negative (NEGATIVE) Ur Barbiturates Screen Negative (NEGATIVE) U Tricyclic Antidepress Negative (NEGATIVE) Ur Phencyclidine Scrn Negative (NEGATIVE) Ur Amphetamine Screen Negative (NEGATIVE) U Methamphetamines Scrn Positive H (NEGATIVE) Urine MDMA Screen Negative (NEGATIVE) U Benzodiazepines Scrn Negative (NEGATIVE) Urine Cocaine Screen Negative (NEGATIVE) U Marijuana (THC) Screen Positive H (NEGATIVE) 04/14/17 04/15/17 04/15/17 Range/Units 20:59 07:35 07:35 WBC 7.8 (5.0-10.0) 10^3/uL RBC 3.93 L (4.6-6.2) 10^6/uL Hgb 11.2 L D (14.0-18.0) g/dL Hct 33.6 L (40.0-54.0) % MCV 85.5 (80-100) fL MCH 28.5 (27.0-34.0) pg MCHC 33.3 (33.0-35.0) g/dL Plt Count 237 D (150-450) 10^3/uL Neut % (Auto) 65.2 (42.2-75.2) % Lymph % (Auto) 24.0 (20.5-50.1) % [place] % (Auto) 6.9 (2-8) % Eos % (Auto) 3.6 H (1.0-3.0) % Baso % (Auto) 0.3 (0.0-1.0) % Sodium 134 L (135-145) mmol/L Potassium 3.8 (3.6-5.0) mmol/L Chloride 104 (101-111) mmol/L Carbon Dioxide 21.0 (21.0-31.0) mmol/L Anion Gap 12.8 BUN 9 (7-18) mg/dL Creatinine 0.8 (0.6-1.3) mg/dL Est Cr Clr Drug Dosing 127.99 mL/min Estimated GFR (MDRD) > 60 Glucose 360 H (74-105) mg/dL POC Glucose 233 H (70-105) mg/dl Calcium 7.9 L (8.4-10.2) mg/dl Urine Color (YELLOW) Urine Appearance (CLEAR) Urine pH (5.0-9.0) Ur Specific [place] (1.005-1.030) Urine Protein (NEGATIVE) Urine Glucose (UA) (NEGATIVE) Urine Ketones (NEGATIVE) Urine Occult Blood (NEGATIVE) Urine Nitrite (NEGATIVE) Urine Bilirubin (NEGATIVE) Urine Urobilinogen (0.2-1.0) mg/dL Ur Leukocyte Esterase (NEGATIVE) Urine RBC /HPF Urine WBC (0-5/HPF) /HPF Ur Epithelial Cells /HPF Urine Bacteria (0-FEW/HPF) /HPF Urine Mucus /LPF Urine Opiates Screen (NEGATIVE) Ur Oxycodone Screen (NEGATIVE) Urine Methadone Screen (NEGATIVE) Ur Barbiturates Screen (NEGATIVE) U Tricyclic Antidepress (NEGATIVE) Ur Phencyclidine Scrn (NEGATIVE) Ur Amphetamine Screen (NEGATIVE) U Methamphetamines Scrn (NEGATIVE) Urine MDMA Screen (NEGATIVE) U Benzodiazepines Scrn (NEGATIVE) Urine Cocaine Screen (NEGATIVE) U Marijuana (THC) Screen (NEGATIVE) Med Orders - Current: Current Medications Aspirin (Aspirin) 81 mg CHEW DAILY [facility] Heparin Sodium (Porcine) (Heparin Sodium) 5,000 units SUBCUT Q8HR [facility] Last Admin: 04/15/17 06:20 Dose: Not Given Piperacillin Sod/Tazobactam (Sod 3.375 gm/ Sodium Chloride) 100 mls @ 200 mls/ hr IV Q6HR [facility] Last Admin: 04/15/17 06:46 Dose: 200 mls/hr Vancomycin HCl 1.5 gm/ Sodium (Chloride) 500 mls @ 333.333 mls/hr IV Q8H [facility] Last Admin: 04/15/17 05:10 Dose: 333.333 mls/hr Sodium Chloride (Normal Saline) 1,000 mls @ 100 mls/hr IV ASDIRECTED [facility] Last Admin: 04/14/17 18:17 Dose: 100 mls/hr Ibuprofen (Motrin) 600 mg PO Q6H [facility] Last Admin: 04/15/17 06:20 Dose: Not Given Insulin Aspart (Novolog) 0 unit SUBCUT TIDAC [facility] PRN Reason: Protocol Last Admin: 04/14/17 18:18 Dose: 8 units Insulin Detemir (Levemir) 15 unit SUBCUT BID [facility] Last Admin: 04/14/17 22:49 Dose: 15 units Lisinopril (Prinivil) 10 mg PO DAILY [facility] Morphine Sulfate (Morphine) 1 mg IVPUSH Q4H PRN PRN Reason: severe pain Last Admin: 04/15/17 05:27 Dose: 1 mg Nicotine (Habitrol) 14 mg TRDERM DAILY [facility] Last Admin: 04/14/17 18:17 Dose: 14 mg Ondansetron HCl (Zofran) 4 mg IVPUSH Q6H PRN PRN Reason: Nausea/Vomiting Oxycodone HCl (Oxycodone) 5 mg PO Q6H PRN PRN Reason: Pain Last Admin: 04/14/17 23:53 Dose: 5 mg Pregabalin (Lyrica) 200 mg PO TID [facility] Last Admin: 04/14/17 22:52 Dose: 200 mg Sodium Chloride (Saline Flush) 10 ml FLUSH ASDIRECTED PRN PRN Reason: Keep Vein Open Last Admin: 04/15/17 05:33 Dose: 10 ml Vancomycin HCl (Pharmacy To Dose - Vancomycin) 1 dose .XX ASDIRECTED [facility] Venlafaxine HCl (Venlafaxine Hcl Er) 150 mg PO DAILY [facility] Venlafaxine HCl (Effexor Xr) 75 mg PO DAILY [facility] Zolpidem Tartrate (Ambien) 5 mg PO BEDTIME PRN PRN Reason: Sleep Discontinued Medications Bupivacaine HCl (Sensorcaine-Mpf 0.5%) Confirm Administered Dose 20 ml .ROUTE .[facility] ONE Stop: 04/15/17 06:31 Bupivacaine HCl (Sensorcaine-Mpf 0.5%) [address] ONE Stop: 04/15/17 07:10 Last Admin: 04/15/17 07:09 Dose: 5 ml Bupivacaine HCl (Sensorcaine-Mpf 0.5%) [address] ONE Stop: 04/15/17 07:11 Last Admin: 04/15/17 07:10 Dose: 5 ml Bupivacaine HCl (Sensorcaine-Mpf 0.5%) 5 [address] .[facility] ONE Stop: 04/15/17 08:40 Last Admin: 04/15/17 08:39 Dose: 5 ml Gentamicin Sulfate (Gentamicin) Confirm Administered Dose 80 mg .ROUTE .[facility] ONE Stop: 04/15/17 06:45 Gentamicin Sulfate (Gentamicin) 80 mg .XX .[facility] ONE Stop: 04/15/17 08:22 Last Admin: 04/15/17 08:21 Dose: 80 mg Gentamicin Sulfate (Gentamicin) Confirm Administered Dose 80 mg .ROUTE .[facility] ONE Stop: 04/15/17 08:25 Gentamicin Sulfate (Gentamicin) 80 mg .XX .[facility] ONE Stop: 04/15/17 08:27 Last Admin: 04/15/17 08:26 Dose: 80 mg Hydromorphone HCl (Dilaudid) 1 mg IVPUSH ONETIME ONE Stop: 04/14/17 14:15 Last Admin: 04/14/17 14:20 Dose: 1 mg Vancomycin HCl 1.5 gm/ Sodium (Chloride) 500 mls @ 334 mls/hr IV ONETIME ONE Stop: 04/14/17 15:30 Last Admin: 04/14/17 14:21 Dose: 334 mls/hr Lidocaine HCl (Xylocaine-Mpf 1%) Confirm Administered Dose 30 ml .ROUTE .[facility] ONE Stop: 04/15/17 06:31 Lidocaine HCl (Xylocaine-Mpf 1%) 5 [address] .[facility] ONE Stop: 04/15/17 07:10 Last Admin: 04/15/17 07:09 Dose: 5 ml Lidocaine HCl (Xylocaine-Mpf 1%) 5 [address] .[facility] ONE Stop: 04/15/17 07:11 Last Admin: 04/15/17 07:10 Dose: 5 ml Lidocaine HCl (Xylocaine-Mpf 1%) 5 ml INJECT .[facility] ONE Stop: 04/15/17 08:40 Last Admin: 04/15/17 08:39 Dose: 5 ml Vancomycin HCl (Vancomycin) Confirm Administered Dose 2 gm .ROUTE .[facility] ONE Stop: 04/15/17 04:47 Last Admin: 04/15/17 05:25 Dose: Not Given - Exam General: Alert, Oriented Neck: Supple Lungs: Clear to Auscultation, Normal Respiratory Effort Cardiovascular: Regular Rate, Regular Rhythm GI/Abdominal Exam: Normal Bowel Sounds, Soft, Non-Tender Extremities: Other (Right foot is bandaged) - Problem List & Annotations (1) Osteomyelitis of right foot SNOMED Code(s): 5297478480459253 Code(s): M86.9 - OSTEOMYELITIS, UNSPECIFIED Status: Acute Current Visit: Yes Qualifiers: Osteomyelitis type: unspecified type Qualified Code(s): M86.9 - Osteomyelitis, unspecified - Problem List Review Problem List Initiated/Reviewed/Updated: Yes - My Orders Last 24 Hours: My Active Orders 04/15/17 09:00 Venlafaxine [Effexor XR] 75 mg PO DAILY - Plan Plan:: #1 right foot diabetic wound and likely osteomyelitis In the past multiple bacteria grew out, the patient has been on outpatient clindamycin. blood cultures: pending wound culture: pending s/p amputation of 2nd toe Started empirically Zosyn and vancomycin The patient is from an area where MRSA is highly prevalent #2 diabetes Will use Lantus and NovoLog combination Follow blood sugars use supplemental insulin as needed Continue BERNARDA inhibitor #3 pain control try to minimize narcotics Continue Lyrica use scheduled Motrin When necessary Percocet and IV morphine #4 smoking cessation discussed Will use nicotine patch #5 DVT prophylaxis with subcutaneous heparin
[2017-04-15] MEDS: Aspirin 81 MG Tab.Chew CHEW SCH (10:20)
[2017-04-15] MEDS: Pregabalin 50 MG Cap PO SCH ×3 (10:20→21:11)
[2017-04-15] MEDS: Venlafaxine 150 MG CAP.ER PO SCH (10:21)
[2017-04-15] MEDS: Nicotine 14 MG/24 Hr Patch TRDERM SCH (10:21)
[2017-04-15] MEDS: Venlafaxine 37.5 MG Cap.ER PO SCH (10:23)
[2017-04-15] MEDS: Lisinopril 10 MG Tab PO SCH (10:23)
[2017-04-15] MEDS: Insulin Aspart 100 Units/ML 3 ML Pen SUBCUT SCH ×3 (10:33→17:31)
[2017-04-15] MEDS: Insulin Detemir 100 Units/ML 3 ML Pen SUBCUT SCH ×2 (10:35→21:14)
[2017-04-15] MEDS: oxyCODONE 5 MG Tab PO PRN ×2 (13:56→21:12)
[2017-04-15] MEDS ORDERED: fentaNYL 100 MCG/2 ML SDV IV ONE (15:50)
[2017-04-15] MEDS ORDERED: Ketorolac 30 MG/ML SDV IVPUSH ONE (15:50)
[2017-04-15] MEDS ORDERED: Sodium Chloride 0.9% 1,000 ML IV ONE (15:50)
[2017-04-15] MEDS ORDERED: Propofol 1,000 MG/100 ML SDV IV ONE (15:50)
[2017-04-15] MEDS ORDERED: Midazolam 1 MG/ML 2 ML SDV IV ONE (15:50)
[2017-04-15] MEDS ORDERED: Ondansetron 4 MG/2 ML SDV IV ONE (15:50)
[2017-04-16] MEDS: Sodium Chloride 0.9% 10 ML Syringe FLUSH PRN ×7 (00:01→22:38)
[2017-04-16] MEDS: Morphine 2 MG/ML Syringe IVPUSH PRN ×8 (00:01→22:38)
[2017-04-16] MEDS: Piperacillin/Tazobactam 3.375 GM in Sodium Chloride 0.9% 100 ML IV SCH ×4 (00:04→18:00)
[2017-04-16] MEDS: Ibuprofen 600 MG Tab PO SCH ×4 (00:07→18:01)
[2017-04-16] MEDS: Heparin Sodium 5,000 Units/ML Vial SUBCUT SCH ×3 (05:33→21:20)
[2017-04-16] MEDS: Vancomycin 1.5 GM in Sodium Chloride 0.9% 500 ML IV SCH ×3 (06:11→22:41)
[2017-04-16] MEDS: oxyCODONE 5 MG Tab PO PRN ×3 (06:17→18:12)
[2017-04-16 07:33] LABS: CHLORIDE,CL 102 mmol/L (101-111); SODIUM,NA 135 mmol/L (135-145)
[2017-04-16] MEDS: Venlafaxine 37.5 MG Cap.ER PO SCH (09:29)
[2017-04-16] MEDS: Venlafaxine 150 MG CAP.ER PO SCH (09:29)
[2017-04-16] MEDS: Pregabalin 50 MG Cap PO SCH ×3 (09:30→21:17)
[2017-04-16] MEDS: Aspirin 81 MG Tab.Chew CHEW SCH (09:30)
[2017-04-16] MEDS: Nicotine 14 MG/24 Hr Patch TRDERM SCH (09:31)
[2017-04-16] MEDS: Insulin Aspart 100 Units/ML 3 ML Pen SUBCUT SCH ×3 (09:31→18:00)
[2017-04-16] MEDS: Insulin Detemir 100 Units/ML 3 ML Pen SUBCUT SCH ×2 (09:32→21:18)
[2017-04-16] MEDS: Lisinopril 10 MG Tab PO SCH (09:32)
--- NOTE | 2017-04-16 10:26 | PCM.PN ---
- General Info Date of Service: 04/16/17 Admission Dx/Problem (Free Text): Right foot diabetic ulcer with infection Subjective Update: The patient had amputation of the second toe on the right foot. He is c/o sever pain in the area. would like more pain meds. He gets angry when I suggest to increase the motrin dose. No chills, shortness of breath, chest pain. - Review of Systems General: Denies: Fever Pulmonary: Denies: Shortness of Breath Cardiovascular: Denies: Chest Pain Gastrointestinal: Denies: Abdominal Pain Genitourinary: Denies: Dysuria Neurological: Denies: Confusion - Patient Data Vitals - Most Recent: Last Vital Signs Temp 37.0 C 04/16/17 07:45 Pulse 59 L 04/16/17 07:45 Resp 20 04/16/17 07:45 BP 122/77 04/16/17 09:32 Pulse Ox 99 04/16/17 07:45 Weight - Most Recent: 87.18 kg I&O - Last 24 Hours: Intake & Output 04/15/17 04/16/17 04/16/17 22:59 06:59 14:59 Intake Total 1200 700 Output Total 400 500 Balance 800 200 Lab Results Last 24 Hours: Laboratory Results - last 24 hr 04/15/17 04/15/17 04/15/17 Range/Units 10:29 12:02 13:25 WBC (5.0-10.0) 10^3/uL RBC (4.6-6.2) 10^6/uL Hgb (14.0-18.0) g/dL Hct (40.0-54.0) % MCV (80-100) fL MCH (27.0-34.0) pg MCHC (33.0-35.0) g/dL Plt Count (150-450) 10^3/uL Neut % (Auto) (42.2-75.2) % Lymph % (Auto) (20.5-50.1) % [place] % (Auto) (2-8) % Eos % (Auto) (1.0-3.0) % Baso % (Auto) (0.0-1.0) % Add Manual Diff Sodium (135-145) mmol/L Potassium (3.6-5.0) mmol/L Chloride (101-111) mmol/L Carbon Dioxide (21.0-31.0) mmol/L Anion Gap BUN (7-18) mg/dL Creatinine (0.6-1.3) mg/dL Est Cr Clr Drug Dosing mL/min Estimated GFR (MDRD) Glucose (74-105) mg/dL POC Glucose 351 H 387 H (70-105) mg/dl Calcium (8.4-10.2) mg/dl Vancomycin Trough 16.6 H (10-15) ug/ml 04/15/17 04/15/17 04/16/17 Range/Units 16:50 20:54 06:57 WBC 7.0 (5.0-10.0) 10^3/uL RBC 3.84 L (4.6-6.2) 10^6/uL Hgb 10.9 L (14.0-18.0) g/dL Hct 32.7 L (40.0-54.0) % MCV 85.2 (80-100) fL MCH 28.4 (27.0-34.0) pg MCHC 33.3 (33.0-35.0) g/dL Plt Count 295 (150-450) 10^3/uL Neut % (Auto) 59.3 (42.2-75.2) % Lymph % (Auto) 29.7 (20.5-50.1) % [place] % (Auto) 6.4 (2-8) % Eos % (Auto) 4.3 H (1.0-3.0) % Baso % (Auto) 0.3 (0.0-1.0) % Add Manual Diff Sodium (135-145) mmol/L Potassium (3.6-5.0) mmol/L Chloride (101-111) mmol/L Carbon Dioxide (21.0-31.0) mmol/L Anion Gap BUN (7-18) mg/dL Creatinine (0.6-1.3) mg/dL Est Cr Clr Drug Dosing mL/min Estimated GFR (MDRD) Glucose (74-105) mg/dL POC Glucose 193 H 242 H (70-105) mg/dl Calcium (8.4-10.2) mg/dl Vancomycin Trough (10-15) ug/ml 04/16/17 04/16/17 Range/Units 06:57 08:03 WBC (5.0-10.0) 10^3/uL RBC (4.6-6.2) 10^6/uL Hgb (14.0-18.0) g/dL Hct (40.0-54.0) % MCV (80-100) fL MCH (27.0-34.0) pg MCHC (33.0-35.0) g/dL Plt Count (150-450) 10^3/uL Neut % (Auto) (42.2-75.2) % Lymph % (Auto) (20.5-50.1) % [place] % (Auto) (2-8) % Eos % (Auto) (1.0-3.0) % Baso % (Auto) (0.0-1.0) % Add Manual Diff Sodium 135 (135-145) mmol/L Potassium 4.3 (3.6-5.0) mmol/L Chloride 102 (101-111) mmol/L Carbon Dioxide 29.0 (21.0-31.0) mmol/L Anion Gap 8.3 BUN 9 (7-18) mg/dL Creatinine 0.8 (0.6-1.3) mg/dL Est Cr Clr Drug Dosing 127.99 mL/min Estimated GFR (MDRD) > 60 Glucose 262 H (74-105) mg/dL POC Glucose 258 H (70-105) mg/dl Calcium 8.0 L (8.4-10.2) mg/dl Vancomycin Trough (10-15) ug/ml Won Results Last 24 Hours: Microbiology 04/15/17 07:22 Wound Culture - Preliminary Foot, Right Med Orders - Current: Current Medications Aspirin (Aspirin) 81 mg CHEW DAILY [facility] Last Admin: 04/16/17 09:30 Dose: 81 mg Heparin Sodium (Porcine) (Heparin Sodium) 5,000 units SUBCUT Q8HR [facility] Last Admin: 04/16/17 05:33 Dose: 5,000 units Piperacillin Sod/Tazobactam (Sod 3.375 gm/ Sodium Chloride) 100 mls @ 200 mls/ hr IV Q6HR [facility] Last Infusion: 04/16/17 06:08 Dose: Infused Vancomycin HCl 1.5 gm/ Sodium (Chloride) 500 mls @ 333.333 mls/hr IV Q8H [facility] Last Admin: 04/16/17 06:11 Dose: 333.333 mls/hr Ibuprofen (Motrin) 800 mg PO Q6HR [facility] Insulin Aspart (Novolog) 0 unit SUBCUT TIDAC [facility] PRN Reason: Protocol Last Admin: 04/16/17 09:31 Dose: 6 units Insulin Detemir (Levemir) 15 unit SUBCUT BID [facility] Last Admin: 04/16/17 09:32 Dose: 15 units Lisinopril (Prinivil) 10 mg PO DAILY [facility] Last Admin: 04/16/17 09:32 Dose: 10 mg Morphine Sulfate (Morphine) 1 mg IVPUSH Q2H PRN PRN Reason: Pain Last Admin: 04/16/17 09:53 Dose: 1 mg Nicotine (Habitrol) 14 mg TRDERM DAILY [facility] Last Admin: 04/16/17 09:31 Dose: 14 mg Ondansetron HCl (Zofran) 4 mg IVPUSH Q6H PRN PRN Reason: Nausea/Vomiting Oxycodone HCl (Oxycodone) 5 mg PO Q6H PRN PRN Reason: Pain Last Admin: 04/16/17 06:17 Dose: 5 mg Pregabalin (Lyrica) 200 mg PO TID [facility] Last Admin: 04/16/17 09:30 Dose: 200 mg Sodium Chloride (Saline Flush) 10 ml FLUSH ASDIRECTED PRN PRN Reason: Keep Vein Open Last Admin: 04/16/17 06:07 Dose: 10 ml Vancomycin HCl (Pharmacy To Dose - Vancomycin) 1 dose .XX ASDIRECTED [facility] Venlafaxine HCl (Venlafaxine Hcl Er) 150 mg PO DAILY [facility] Last Admin: 04/16/17 09:29 Dose: 150 mg Venlafaxine HCl (Effexor Xr) 75 mg PO DAILY [facility] Last Admin: 04/16/17 09:29 Dose: 75 mg Zolpidem Tartrate (Ambien) 5 mg PO BEDTIME PRN PRN Reason: Sleep Discontinued Medications Bupivacaine HCl (Sensorcaine-Mpf 0.5%) Confirm Administered Dose 20 ml .ROUTE .[facility] ONE Stop: 04/15/17 06:31 Bupivacaine HCl (Sensorcaine-Mpf 0.5%) 5 ml INJECT .[facility] ONE Stop: 04/15/17 07:10 Last Admin: 04/15/17 07:09 Dose: 5 ml Bupivacaine HCl (Sensorcaine-Mpf 0.5%) 5 ml INJECT .[facility] ONE Stop: 04/15/17 07:11 Last Admin: 04/15/17 07:10 Dose: 5 ml Bupivacaine HCl (Sensorcaine-Mpf 0.5%) 5 ml INJECT .[facility] ONE Stop: 04/15/17 08:40 Last Admin: 04/15/17 08:39 Dose: 5 ml Bupivacaine HCl (Sensorcaine-Mpf 0.5%) 10 ml INJECT .[facility] ONE Stop: 04/15/17 16:02 Fentanyl (Sublimaze) 100 mcg IV .[facility] ONE Stop: 04/15/17 15:51 Gentamicin Sulfate (Gentamicin) Confirm Administered Dose 80 mg .ROUTE .[facility] ONE Stop: 04/15/17 06:45 Gentamicin Sulfate (Gentamicin) 80 mg .XX .[facility] ONE Stop: 04/15/17 08:22 Last Admin: 04/15/17 08:21 Dose: 80 mg Gentamicin Sulfate (Gentamicin) Confirm Administered Dose 80 mg .ROUTE .[facility] ONE Stop: 04/15/17 08:25 Gentamicin Sulfate (Gentamicin) 80 mg .XX .[facility] ONE Stop: 04/15/17 08:27 Last Admin: 04/15/17 08:26 Dose: 80 mg Hydromorphone HCl (Dilaudid) 1 mg IVPUSH ONETIME ONE Stop: 04/14/17 14:15 Last Admin: 04/14/17 14:20 Dose: 1 mg Vancomycin HCl 1.5 gm/ Sodium (Chloride) 500 mls @ 334 mls/hr IV ONETIME ONE Stop: 04/14/17 15:30 Last Admin: 04/14/17 14:21 Dose: 334 mls/hr Sodium Chloride (Normal Saline) 1,000 mls @ 100 mls/hr IV ASDIRECTED [facility] Last Admin: 04/14/17 18:17 Dose: 100 mls/hr Sodium Chloride (Normal Saline) 1,000 mls @ as directed IV .[facility] ONE Stop: 04/15/17 15:51 Ibuprofen (Motrin) 600 mg PO Q6H [facility] Last Admin: 04/16/17 05:34 Dose: 600 mg Ketorolac Tromethamine (Toradol) 30 mg IVPUSH .[facility] ONE Stop: 04/15/17 15:51 Lidocaine HCl (Xylocaine-Mpf 1%) Confirm Administered Dose 30 ml .ROUTE .[facility]- [facility] ONE Stop: 04/15/17 06:31 Lidocaine HCl (Xylocaine-Mpf 1%) 5 ml INJECT .[facility] ONE Stop: 04/15/17 07:10 Last Admin: 04/15/17 07:09 Dose: 5 ml Lidocaine HCl (Xylocaine-Mpf 1%) 5 ml INJECT .[facility] ONE Stop: 04/15/17 07:11 Last Admin: 04/15/17 07:10 Dose: 5 ml Lidocaine HCl (Xylocaine-Mpf 1%) 5 ml INJECT .[facility] ONE Stop: 04/15/17 08:40 Last Admin: 04/15/17 08:39 Dose: 5 ml Lidocaine HCl (Xylocaine-Mpf 1%) 30 ml INJECT .[facility] ONE Stop: 04/15/17 16:02 Midazolam HCl (Versed 1 Mg/Ml) 2 mg IV .[facility] ONE Stop: 04/15/17 15:51 Morphine Sulfate (Morphine) 1 mg IVPUSH Q4H PRN PRN Reason: severe pain Last Admin: 04/15/17 17:32 Dose: 1 mg Ondansetron HCl (Zofran) 4 mg IV .[facility] ONE Stop: 04/15/17 15:51 Propofol (Diprivan 100 Ml) 830 mg IV .[facility] ONE Stop: 04/15/17 15:51 Vancomycin HCl (Vancomycin) Confirm Administered Dose 2 gm .ROUTE .[facility] ONE Stop: 04/15/17 04:47 Last Admin: 04/15/17 05:25 Dose: Not Given - Exam General: Alert, Oriented Neck: Supple Lungs: Clear to Auscultation, Normal Respiratory Effort Cardiovascular: Regular Rate, Regular Rhythm Extremities: Other (r. foot bandaged, I looked at nursing photos, d/w dr. Pinon who just changed the dressing) - Problem List & Annotations (1) Osteomyelitis of right foot SNOMED Code(s): 4038842508328304 Code(s): M86.9 - OSTEOMYELITIS, UNSPECIFIED Status: Acute Current Visit: Yes Qualifiers: Osteomyelitis type: unspecified type Qualified Code(s): M86.9 - Osteomyelitis, unspecified - Problem List Review Problem List Initiated/Reviewed/Updated: Yes - My Orders Last 24 Hours: My Active Orders 04/15/17 16:38 RT Incentive Spirometry [RC] ASDIRECTED 04/15/17 19:49 Morphine 1 mg IVPUSH Q2H PRN 04/16/17 10:10 Ibuprofen [Motrin] 800 mg PO Q6H 04/16/17 21:30 VANCOMYCIN TROUGH [CHEM] Timed - Plan Plan:: #1 right foot diabetic wound and likely osteomyelitis In the past multiple bacteria grew out, the patient has been on outpatient clindamycin. blood cultures: neg wound culture: gram negative rods s/p amputation of 2nd toe d/w dr. Pinon today - she feels that all necrotic, osteomyelitis tissue was removed, wound looks good, Started empirically Zosyn and vancomycin - will continue a few more days of IV ABx The patient is from an area where MRSA is highly prevalent #2 diabetes Will use Lantus and NovoLog combination Follow blood sugars use supplemental insulin as needed Continue BERNARDA inhibitor #3 pain control try to minimize narcotics, he is very high risk for addiction urine drug screen + amphetamine, marijuana, opioids(had rx. for percocet) Continue Lyrica increase scheduled Motrin use When necessary Percocet and IV morphine d/w pt that he should not be using narcs #4 smoking cessation discussed Will use nicotine patch #5 DVT prophylaxis with subcutaneous heparin
--- NOTE | 2017-04-16 11:29 | OR ---
DATE: 04/15/2017 PREOPERATIVE DIAGNOSIS: Right foot diabetic ulcer with infection and underlying osteomyelitis. POSTOPERATIVE DIAGNOSIS: Right foot diabetic ulcer with infection and underlying osteomyelitis. PROCEDURE PERFORMED: Right foot diabetic wound debridement with 2nd digit amputation and partial 2nd metatarsal amputation with washout. ANESTHESIA: Local MAC with preoperative local block of 20 mL of 1:1 mixture of 1% lidocaine plain and 0.5% Marcaine plain. TOURNIQUET TIME: 56 minutes of pneumatic ankle tourniquet. ESTIMATED BLOOD LOSS: Minimal. SPECIMEN REMOVED: Pre and post surgical cultures, 2nd digit, and partial 2nd metatarsal with proximal margins marked. COMPLICATIONS: None. INDICATIONS: Pete is a 46-year-old diabetic male who presented to the emergency room with a diabetic foot wound on his right foot. I have seen him in the past for this wound and we have been treating it in clinic. He reports over the last week that the foot has become increasingly more painful, red, and increased drainage. He also noticed an increase in the smell of the wound. He was trying to stay off it as much as possible with a CAM boot. He had tried to change a dry dressing everyday, he presented to the emergency room with just a sock on. He denies any nausea, vomiting, fever, or chills. MRI of the right foot reveals increased signal intensity at the 2nd digit and 2nd metatarsal distally, possible joint effusion of the 2nd metatarsophalangeal joint. The patient voiced good understanding of proposed procedure and possible complications elects to have surgery at this time. DESCRIPTION OF PROCEDURE: The patient was taken to the operating room, lying in the supine position. After adequate anesthesia induction as described above, the right foot was prepped and draped in the usual sterile fashion. A pneumatic ankle tourniquet was inflated to 225 mmHg without doing the Esmarch. Attention was then directed to the plantar right ball of the foot at the ulcer, a #15 blade was used to excise the ulcer and an incision was made from the plantar digit to the ulcer. It was noted to have a significant amount of purulent drainage expressed upon the incision. There was an abscess at the plantar area of the ulcer that did extend down the flexor tendon of the 2nd digit. This was followed down until good healthy tissue was reached. All necrotic tissue was removed and all abscess was also removed. The 2nd digit was then amputated trying to save any good skin and infected necrotic skin at the medial border was completely excised. The 2nd digit was removed and sent to the lab. The flexor tendon was inspected and it was removed as far proximally as possible to good healthy tendon. A sagittal saw was used to resect the distal portion of the 2nd metatarsal to the area of good appearing bone. This was also sent to the lab and the proximal margins were marked with a marking pen. All remaining infected necrotic tissue was excised and it was checked for any remaining abscesses. There was one found at the lateral portion of the forefoot and this was also excised. The remainder of the tissue appeared healthy. The tourniquet was let down and it was again inspected for any necrotic tissue. None remained. I then changed my surgical gloves to clean gloves and I did irrigate with copious amounts of sterile saline with gentamicin mixture. A post-irrigation culture was obtained. The area was then closed with 4-0 nylon sutures. The area was dressed with Xeroform to the incision sites, fluffs, Webril, and an Jakub wrap. He tolerated the procedure well and was admitted back to the floor for IV antibiotics. He will be on vancomycin and Zosyn until cultures return. [facility] /[id number]
--- NOTE | 2017-04-16 12:20 | PCM.CONSN ---
- General Info Date of Service: 04/16/17 Admission Dx/Problem (Free Text): Right foot diabetic ulcer with infection Subjective Update: 46 y/o DM II male POD 1 right foot debridement and amputation 2nd digit/partial met with wash out. He reports he is having a lot of pain to mostly the bottom of his foot. He otherwise did sleep well. He has kept the dressing intact and is wondering if he can shower today. He has been compliant with NWB to the right foot with crutches. Denies n/v/f/c/calf pain. - Review of Systems General: Reports: No Symptoms - Patient Data Vitals - Most Recent: Last Vital Signs Temp 36.3 C 04/16/17 11:00 Pulse 58 L 04/16/17 11:00 Resp 20 04/16/17 11:00 BP 108/64 04/16/17 11:00 Pulse Ox 100 04/16/17 11:00 Weight - Most Recent: 87.18 kg I&O - Last 24 Hours: Intake & Output 04/15/17 04/16/17 04/16/17 22:59 06:59 14:59 Intake Total 1200 700 Output Total 400 500 Balance 800 200 Lab Results Last 24 Hours: Laboratory Results - last 24 hr 04/15/17 04/15/17 04/15/17 Range/Units 13:25 16:50 20:54 WBC (5.0-10.0) 10^3/uL RBC (4.6-6.2) 10^6/uL Hgb (14.0-18.0) g/dL Hct (40.0-54.0) % MCV (80-100) fL MCH (27.0-34.0) pg MCHC (33.0-35.0) g/dL Plt Count (150-450) 10^3/uL Neut % (Auto) (42.2-75.2) % Lymph % (Auto) (20.5-50.1) % [place] % (Auto) (2-8) % Eos % (Auto) (1.0-3.0) % Baso % (Auto) (0.0-1.0) % Add Manual Diff Sodium (135-145) mmol/L Potassium (3.6-5.0) mmol/L Chloride (101-111) mmol/L Carbon Dioxide (21.0-31.0) mmol/L Anion Gap BUN (7-18) mg/dL Creatinine (0.6-1.3) mg/dL Est Cr Clr Drug Dosing mL/min Estimated GFR (MDRD) Glucose (74-105) mg/dL POC Glucose 193 H 242 H (70-105) mg/dl Calcium (8.4-10.2) mg/dl Vancomycin Trough 16.6 H (10-15) ug/ml 04/16/17 04/16/17 04/16/17 Range/Units 06:57 06:57 08:03 WBC 7.0 (5.0-10.0) 10^3/uL RBC 3.84 L (4.6-6.2) 10^6/uL Hgb 10.9 L (14.0-18.0) g/dL Hct 32.7 L (40.0-54.0) % MCV 85.2 (80-100) fL MCH 28.4 (27.0-34.0) pg MCHC 33.3 (33.0-35.0) g/dL Plt Count 295 (150-450) 10^3/uL Neut % (Auto) 59.3 (42.2-75.2) % Lymph % (Auto) 29.7 (20.5-50.1) % [place] % (Auto) 6.4 (2-8) % Eos % (Auto) 4.3 H (1.0-3.0) % Baso % (Auto) 0.3 (0.0-1.0) % Add Manual Diff Sodium 135 (135-145) mmol/L Potassium 4.3 (3.6-5.0) mmol/L Chloride 102 (101-111) mmol/L Carbon Dioxide 29.0 (21.0-31.0) mmol/L Anion Gap 8.3 BUN 9 (7-18) mg/dL Creatinine 0.8 (0.6-1.3) mg/dL Est Cr Clr Drug Dosing 127.99 mL/min Estimated GFR (MDRD) > 60 Glucose 262 H (74-105) mg/dL POC Glucose 258 H (70-105) mg/dl Calcium 8.0 L (8.4-10.2) mg/dl Vancomycin Trough (10-15) ug/ml 04/16/17 Range/Units 11:14 WBC (5.0-10.0) 10^3/uL RBC (4.6-6.2) 10^6/uL Hgb (14.0-18.0) g/dL Hct (40.0-54.0) % MCV (80-100) fL MCH (27.0-34.0) pg MCHC (33.0-35.0) g/dL Plt Count (150-450) 10^3/uL Neut % (Auto) (42.2-75.2) % Lymph % (Auto) (20.5-50.1) % [place] % (Auto) (2-8) % Eos % (Auto) (1.0-3.0) % Baso % (Auto) (0.0-1.0) % Add Manual Diff Sodium (135-145) mmol/L Potassium (3.6-5.0) mmol/L Chloride (101-111) mmol/L Carbon Dioxide (21.0-31.0) mmol/L Anion Gap BUN (7-18) mg/dL Creatinine (0.6-1.3) mg/dL Est Cr Clr Drug Dosing mL/min Estimated GFR (MDRD) Glucose (74-105) mg/dL POC Glucose 229 H (70-105) mg/dl Calcium (8.4-10.2) mg/dl Vancomycin Trough (10-15) ug/ml Won Results Last 24 Hours: Microbiology 04/15/17 07:22 Wound Culture - Preliminary Foot, Right Med Orders - Current: Current Medications Heparin Sodium (Porcine) (Heparin Sodium) 5,000 units SUBCUT Q8HR [facility] Last Admin: 04/16/17 05:33 Dose: 5,000 units Piperacillin Sod/Tazobactam (Sod 3.375 gm/ Sodium Chloride) 100 mls @ 200 mls/ hr IV Q6HR [facility] Last Infusion: 04/16/17 06:08 Dose: Infused Vancomycin HCl 1.5 gm/ Sodium (Chloride) 500 mls @ 333.333 mls/hr IV Q8H [facility] Last Admin: 04/16/17 06:11 Dose: 333.333 mls/hr Ibuprofen (Motrin) 800 mg PO Q6HR [facility] Insulin Aspart (Novolog) 0 unit SUBCUT TIDAC [facility] PRN Reason: Protocol Last Admin: 04/16/17 09:31 Dose: 6 units Insulin Detemir (Levemir) 15 unit SUBCUT BID [facility] Last Admin: 04/16/17 09:32 Dose: 15 units Lisinopril (Prinivil) 10 mg PO DAILY [facility] Last Admin: 04/16/17 09:32 Dose: 10 mg Morphine Sulfate (Morphine) 1 mg IVPUSH Q2H PRN PRN Reason: Pain Last Admin: 04/16/17 09:53 Dose: 1 mg Nicotine (Habitrol) 14 mg TRDERM DAILY [facility] Last Admin: 04/16/17 09:31 Dose: 14 mg Ondansetron HCl (Zofran) 4 mg IVPUSH Q6H PRN PRN Reason: Nausea/Vomiting Oxycodone HCl (Oxycodone) 5 mg PO Q6H PRN PRN Reason: Pain Last Admin: 04/16/17 06:17 Dose: 5 mg Pantoprazole Sodium (Protonix) 40 mg PO BEDTIME [facility] Pregabalin (Lyrica) 200 mg PO TID [facility] Last Admin: 04/16/17 09:30 Dose: 200 mg Sodium Chloride (Saline Flush) 10 ml FLUSH ASDIRECTED PRN PRN Reason: Keep Vein Open Last Admin: 04/16/17 06:07 Dose: 10 ml Vancomycin HCl (Pharmacy To Dose - Vancomycin) 1 dose .XX ASDIRECTED [facility] Venlafaxine HCl (Venlafaxine Hcl Er) 150 mg PO DAILY [facility] Last Admin: 04/16/17 09:29 Dose: 150 mg Venlafaxine HCl (Effexor Xr) 75 mg PO DAILY [facility] Last Admin: 04/16/17 09:29 Dose: 75 mg Zolpidem Tartrate (Ambien) 5 mg PO BEDTIME PRN PRN Reason: Sleep Discontinued Medications Aspirin (Aspirin) 81 mg CHEW DAILY [facility] Last Admin: 04/16/17 09:30 Dose: 81 mg Bupivacaine HCl (Sensorcaine-Mpf 0.5%) Confirm Administered Dose 20 ml .ROUTE .STK-MED ONE Stop: 04/15/17 06:31 Bupivacaine HCl (Sensorcaine-Mpf 0.5%) 5 ml INJECT .STK-MED ONE Stop: 04/15/17 07:10 Last Admin: 04/15/17 07:09 Dose: 5 ml Bupivacaine HCl (Sensorcaine-Mpf 0.5%) 5 ml INJECT .STK-MED ONE Stop: 04/15/17 07:11 Last Admin: 04/15/17 07:10 Dose: 5 ml Bupivacaine HCl (Sensorcaine-Mpf 0.5%) 5 ml INJECT .STK-MED ONE Stop: 04/15/17 08:40 Last Admin: 04/15/17 08:39 Dose: 5 ml Bupivacaine HCl (Sensorcaine-Mpf 0.5%) 10 ml INJECT .STK-MED ONE Stop: 04/15/17 16:02 Fentanyl (Sublimaze) 100 mcg IV .STK-MED ONE Stop: 04/15/17 15:51 Gentamicin Sulfate (Gentamicin) Confirm Administered Dose 80 mg .ROUTE .ST-MED ONE Stop: 04/15/17 06:45 Gentamicin Sulfate (Gentamicin) 80 mg .XX .STK-MED ONE Stop: 04/15/17 08:22 Last Admin: 04/15/17 08:21 Dose: 80 mg Gentamicin Sulfate (Gentamicin) Confirm Administered Dose 80 mg .ROUTE .ST-MED ONE Stop: 04/15/17 08:25 Gentamicin Sulfate (Gentamicin) 80 mg .XX .ST-MED ONE Stop: 04/15/17 08:27 Last Admin: 04/15/17 08:26 Dose: 80 mg Hydromorphone HCl (Dilaudid) 1 mg IVPUSH ONETIME ONE Stop: 04/14/17 14:15 Last Admin: 04/14/17 14:20 Dose: 1 mg Vancomycin HCl 1.5 gm/ Sodium (Chloride) 500 mls @ 334 mls/hr IV ONETIME ONE Stop: 04/14/17 15:30 Last Admin: 04/14/17 14:21 Dose: 334 mls/hr Sodium Chloride (Normal Saline) 1,000 mls @ 100 mls/hr IV ASDIRECTED [facility] Last Admin: 04/14/17 18:17 Dose: 100 mls/hr Sodium Chloride (Normal Saline) 1,000 mls @ as directed IV .STK-MED ONE Stop: 04/15/17 15:51 Ibuprofen (Motrin) 600 mg PO Q6H [facility] Last Admin: 04/16/17 05:34 Dose: 600 mg Ketorolac Tromethamine (Toradol) 30 mg IVPUSH .STK-MED ONE Stop: 04/15/17 15:51 Lidocaine HCl (Xylocaine-Mpf 1%) Confirm Administered Dose 30 ml .ROUTE .STK- MED ONE Stop: 04/15/17 06:31 Lidocaine HCl (Xylocaine-Mpf 1%) 5 ml INJECT .STK-MED ONE Stop: 04/15/17 07:10 Last Admin: 04/15/17 07:09 Dose: 5 ml Lidocaine HCl (Xylocaine-Mpf 1%) 5 ml INJECT .STK-MED ONE Stop: 04/15/17 07:11 Last Admin: 04/15/17 07:10 Dose: 5 ml Lidocaine HCl (Xylocaine-Mpf 1%) 5 ml INJECT .STK-MED ONE Stop: 04/15/17 08:40 Last Admin: 04/15/17 08:39 Dose: 5 ml Lidocaine HCl (Xylocaine-Mpf 1%) 30 ml INJECT .STK-MED ONE Stop: 04/15/17 16:02 Midazolam HCl (Versed 1 Mg/Ml) 2 mg IV .STK-MED ONE Stop: 04/15/17 15:51 Morphine Sulfate (Morphine) 1 mg IVPUSH Q4H PRN PRN Reason: severe pain Last Admin: 04/15/17 17:32 Dose: 1 mg Ondansetron HCl (Zofran) 4 mg IV .STK-MED ONE Stop: 04/15/17 15:51 Propofol (Diprivan 100 Ml) 830 mg IV .STK-MED ONE Stop: 04/15/17 15:51 Vancomycin HCl (Vancomycin) Confirm Administered Dose 2 gm .ROUTE .ST-MED ONE Stop: 04/15/17 04:47 Last Admin: 04/15/17 05:25 Dose: Not Given - Exam General: Alert, Oriented, No Acute Distress Physical Findings Comments:: Right LE: bandage intact to right foot, upon dressing removal there was bloody drainage present but was not able to express any purulent drainage from the right foot. Sutures intact with some slight maceration to the medial hallux area , edema present to the right foot. Surgical incision appears healthy and well vascularized, no dehiscence present. Pain with palpation to surgical area on right forefoot and extending proximally on plantar foot to midfoot area. No calf pain. Consult PN Assessment/Plan POD#: 1 Procedures: Procedures ASSAY OF AMYLASE (06/15/16) ASSAY OF ETHANOL (09/16/13) ASSAY OF LACTIC ACID (01/14/17) ASSAY OF TROPONIN QUANT (11/30/14) BLOOD CULTURE FOR BACTERIA (01/14/17) CHEST X-RAY 1 VIEW FRONTAL (11/30/14) COMPLETE CBC W/AUTO DIFF WBC (01/14/17) COMPREHEN METABOLIC PANEL (01/14/17) CT HEAD/BRAIN W/O DYE (08/14/13) CULTURE AEROBIC IDENTIFY (01/14/17) CULTURE OTHR SPECIMN AEROBIC (01/14/17) ELECTROCARDIOGRAM TRACING (11/30/14) EMERGENCY DEPT VISIT (04/10/17) EMERGENCY DEPT VISIT (01/14/17) EMERGENCY DEPT VISIT (01/02/17) EMERGENCY DEPT VISIT (11/30/14) EMERGENCY DEPT VISIT (09/06/14) EMERGENCY DEPT VISIT (09/16/13) EMERGENCY DEPT VISIT (08/14/13) MICROBE SUSCEPTIBLE WON (01/14/17) MRI LOWER EXTREMITY W/O DYE (04/08/17) REAGENT STRIP/BLOOD GLUCOSE (09/16/13) ROUTINE VENIPUNCTURE (01/14/17) RPR F/E/E/N/L/M 2.5 CM/< (08/14/13) THER/PROPH/DIAG IV INF INIT (06/15/16) URINALYSIS AUTO W/SCOPE (11/30/14) X-RAY EXAM OF FOOT (01/14/17) X-RAY EXAM OF FOOT (01/02/17) (1) Cellulitis of foot SNOMED Code(s): 890777117 Code(s): L03.119 - CELLULITIS OF UNSPECIFIED PART OF LIMB Current Visit: No (2) DM type 2, uncontrolled, with lower extremity ulcer SNOMED Code(s): 312875336 Code(s): E11.622 - TYPE 2 DIABETES MELLITUS WITH OTHER SKIN ULCER; E11.65 - TYPE 2 DIABETES MELLITUS WITH HYPERGLYCEMIA; L97.909 - NON-PRS CHRONIC ULC UNSP PRT OF UNSP LOW LEG W UNSP SEVERITY Current Visit: Yes (3) Osteomyelitis of right foot SNOMED Code(s): 0396825684637232 Code(s): M86.9 - OSTEOMYELITIS, UNSPECIFIED Current Visit: Yes Qualifiers: Osteomyelitis type: unspecified type Qualified Code(s): M86.9 - Osteomyelitis, unspecified Problem List Initiated/Reviewed/Updated: Yes My Orders Last 24 Hours: My Active Orders 04/15/17 Lunch Advance Diet Instructions [DIET] Plan: POD 1 right foot 2nd digit/parital metatarsal amputation with wash-out -Today I did change his dressing, there was a moderate amount of bloody drainage today on dressing, no purulent drainage. Downtreanding WBC to 7.0 today. I applied betadine to incision site with abd pad, webroll and manjula wrap. Can adjust manjula wrap as needed but keep other dressing c,d,i. He can take shower as long as he keeps the dressing dry. Continue to elevate Right foot on pillow to heart level. Continue NWB to the right foot with crutches or walker. Will continue the IV vanc and zosyn for another couple of days. Does have some post- op pain to the foot, pain management per hospitalist and discussed with the patient that we want to limit narcotics as much as possible. We could also try ice to the foot or behind the knee to help with pain/swelling for 20 minute sessions. I will see him again tomorrow AM and do dressing change.
[2017-04-16] MEDS ORDERED: Pantoprazole 40 MG Tab.CR PO SCH (21:00)
[2017-04-17] MEDS: Sodium Chloride 0.9% 10 ML Syringe FLUSH PRN ×5 (00:12→14:47)
[2017-04-17] MEDS: Piperacillin/Tazobactam 3.375 GM in Sodium Chloride 0.9% 100 ML IV SCH ×3 (00:13→12:15)
[2017-04-17] MEDS: Ibuprofen 800 MG Tab PO SCH ×3 (00:14→12:13)
[2017-04-17] MEDS: Heparin Sodium 5,000 Units/ML Vial SUBCUT SCH ×2 (05:36→15:02)
[2017-04-17] MEDS: oxyCODONE 5 MG Tab PO PRN ×2 (05:41→12:14)
[2017-04-17] MEDS: Morphine 2 MG/ML Syringe IVPUSH PRN ×4 (05:42→14:46)
[2017-04-17] MEDS: Vancomycin 1.5 GM in Sodium Chloride 0.9% 500 ML IV SCH ×2 (06:14→15:03)
[2017-04-17] MEDS: Insulin Aspart 100 Units/ML 3 ML Pen SUBCUT SCH ×2 (08:25→12:27)
[2017-04-17] MEDS: Insulin Detemir 100 Units/ML 3 ML Pen SUBCUT SCH (08:26)
[2017-04-17] MEDS: Venlafaxine 37.5 MG Cap.ER PO SCH (08:29)
[2017-04-17] MEDS: Lisinopril 10 MG Tab PO SCH (08:30)
[2017-04-17] MEDS: Pregabalin 50 MG Cap PO SCH ×2 (08:39→15:01)
[2017-04-17] MEDS: Nicotine 14 MG/24 Hr Patch TRDERM SCH (08:40)
[2017-04-17] MEDS: Venlafaxine 150 MG CAP.ER PO SCH (08:40)
--- NOTE | 2017-04-17 10:24 | PCM.DCSUM1 ---
Discharge Summary - Hospital Course Free Text/Narrative:: #1 right foot diabetic wound and osteomyelitis In the past multiple bacteria grew out, the patient has been on outpatient clindamycin. blood cultures: neg wound culture: likely strep s/p amputation of 2nd toe on 04/15 treated empirically with Zosyn and vancomycin - will switch to 5 days more clinda follow up with podiatry #2 diabetes Will use Lantus and NovoLog combination r #3 pain control try to minimize narcotics, he is very high risk for addiction urine drug screen + amphetamine, marijuana, opioids(had rx. for percocet) Continue Lyrica use Motrin will give only 12 pills of [place] on discharge d/w pt that he should not be using narcs #4 smoking cessation discussed use nicotine patch - Discharge Data Discharge Date: 04/17/17 Discharge Disposition: Home, Self-Care 01 Condition: Good - Discharge Diagnosis/Problem(s) (1) Osteomyelitis of right foot SNOMED Code(s): [id number] ICD Code: M86.9 - OSTEOMYELITIS, UNSPECIFIED Status: Acute Current Visit : Yes Qualifiers: Osteomyelitis type: unspecified type Qualified Code(s): M86.9 - Osteomyelitis, unspecified - Patient Summary/Data Operative Procedure(s) Performed: right foot infection I&D with 2nd digit and partial 2nd metatarsal amputation and wash-out - Patient Instructions Diet: Diabetic Diet Activity: As Tolerated - Discharge Plan Prescriptions/Med Rec: Clindamycin HCl [Cleocin] 300 mg PO QID #20 cap Hydrocodone/Acetaminophen [Hydrocodon-Acetaminophn 10-325] 1 tab PO Q6H PRN #12 tablet PRN Reason: severe pain Home Medications: Home Meds Insulin Aspart [NovoLOG] 8 units SQ TID 09/06/14 [History] Insulin Detemir [Levemir] 15 units SQ BID 09/06/14 [History] Aspirin 1 tab CHEW DAILY 11/30/14 [History] Ibuprofen 1 tab PO TID 11/30/14 [History] Pregabalin [Lyrica] 1 tab PO TID 11/30/14 [History] Lisinopril 10 mg PO DAILY 06/15/16 [History] Venlafaxine [Effexor] 225 mg PO DAILY 06/15/16 [History] Acetaminophen [Tylenol] 650 mg PO ASDIRECTED PRN 01/02/17 [History] Mirtazapine 15 mg PO DAILY 04/14/17 [History] Clindamycin HCl [Cleocin] 300 mg PO QID #20 cap 04/17/17 [Rx] Hydrocodone/Acetaminophen [Hydrocodon-Acetaminophn 10-325] 1 tab PO Q6H PRN #12 tablet 04/17/17 [Rx] Patient Handouts: Crutch Use, [id number], Type 2 Diabetes Mellitus, Adult, Diabetes and Foot Care, Chemical Dependency, Living With an Amputation, Peripheral Neuropathy, How to Avoid Diabetes Problems Referrals: Katey Pinon DPM [Physician] - (in 2-3 days) - Discharge Summary/Plan Comment DC Time >30 min.: No - General Info Date of Service: 04/17/17 - Review of Systems General: Denies: Fever Pulmonary: Denies: Shortness of Breath Cardiovascular: Denies: Chest Pain Gastrointestinal: Denies: Abdominal Pain Skin: Reports: Other (minimal drainage from wound) - Patient Data Vitals - Most Recent: Last Vital Signs Temp 37.0 C 04/17/17 07:00 Pulse 62 04/17/17 07:00 Resp 20 04/17/17 07:00 BP 137/90 04/17/17 08:30 Pulse Ox 100 04/17/17 07:00 Weight - Most Recent: 87.18 kg I&O - Last 24 hours: Intake & Output 04/16/17 04/17/17 04/17/17 22:59 06:59 14:59 Intake Total 400 700 706 Output Total 900 Balance 400 700 -194 Lab Results - Last 24 hrs: Laboratory Results - last 24 hr 04/16/17 04/16/17 04/16/17 Range/Units 11:14 16:57 21:04 POC Glucose 229 H 258 H 203 H (70-105) mg/dl Vancomycin Trough (10-15) ug/ml 04/16/17 Range/Units 21:36 POC Glucose (70-105) mg/dl Vancomycin Trough 19.5 H (10-15) ug/ml KEYLA Results - Last 24 hrs: Microbiology 04/15/17 08:29 Wound Culture - Preliminary Foot, Right 04/15/17 07:22 Wound Culture - Preliminary Foot, Right Med Orders - Current: Current Medications Heparin Sodium (Porcine) (Heparin Sodium) 5,000 units SUBCUT Q8HR [facility] Last Admin: 04/17/17 05:36 Dose: 5,000 units Piperacillin Sod/Tazobactam (Sod 3.375 gm/ Sodium Chloride) 100 mls @ 200 mls/ hr IV Q6HR [facility] Last Infusion: 04/17/17 06:11 Dose: Infused Vancomycin HCl 1.5 gm/ Sodium (Chloride) 500 mls @ 333.333 mls/hr IV Q8H [facility] Last Admin: 04/17/17 06:14 Dose: 333.333 mls/hr Ibuprofen (Motrin) 800 mg PO Q6HR [facility] Last Admin: 04/17/17 05:31 Dose: 800 mg Insulin Aspart (Novolog) 0 unit SUBCUT TIDAC [facility] PRN Reason: Protocol Last Admin: 04/17/17 08:25 Dose: 4 units Insulin Detemir (Levemir) 15 unit SUBCUT BID [facility] Last Admin: 04/17/17 08:26 Dose: 15 units Lisinopril (Prinivil) 10 mg PO DAILY [facility] Last Admin: 04/17/17 08:30 Dose: 10 mg Morphine Sulfate (Morphine) 1 mg IVPUSH Q2H PRN PRN Reason: Pain Last Admin: 04/17/17 08:31 Dose: 1 mg Nicotine (Habitrol) 14 mg TRDERM DAILY [facility] Last Admin: 04/17/17 08:40 Dose: 14 mg Ondansetron HCl (Zofran) 4 mg IVPUSH Q6H PRN PRN Reason: Nausea/Vomiting Oxycodone HCl (Oxycodone) 5 mg PO Q6H PRN PRN Reason: Pain Last Admin: 04/17/17 05:41 Dose: 5 mg Pantoprazole Sodium (Protonix) 40 mg PO BEDTIME [facility] Last Admin: 04/16/17 21:17 Dose: 40 mg Pregabalin (Lyrica) 200 mg PO TID [facility] Last Admin: 04/17/17 08:39 Dose: 200 mg Sodium Chloride (Saline Flush) 10 ml FLUSH ASDIRECTED PRN PRN Reason: Keep Vein Open Last Admin: 04/17/17 07:54 Dose: 10 ml Vancomycin HCl (Pharmacy To Dose - Vancomycin) 1 dose .XX ASDIRECTED [facility] Venlafaxine HCl (Venlafaxine Hcl Er) 150 mg PO DAILY [facility] Last Admin: 04/17/17 08:40 Dose: 150 mg Venlafaxine HCl (Effexor Xr) 75 mg PO DAILY [facility] Last Admin: 04/17/17 08:29 Dose: 75 mg Zolpidem Tartrate (Ambien) 5 mg PO BEDTIME PRN PRN Reason: Sleep Last Admin: 04/16/17 21:23 Dose: 5 mg Discontinued Medications Aspirin (Aspirin) 81 mg CHEW DAILY [facility] Last Admin: 04/16/17 09:30 Dose: 81 mg Bupivacaine HCl (Sensorcaine-Mpf 0.5%) Confirm Administered Dose 20 ml .ROUTE .STK-MED ONE Stop: 04/15/17 06:31 Bupivacaine HCl (Sensorcaine-Mpf 0.5%) 5 ml INJECT .ST-MED ONE Stop: 04/15/17 07:10 Last Admin: 04/15/17 07:09 Dose: 5 ml Bupivacaine HCl (Sensorcaine-Mpf 0.5%) 5 ml INJECT .ST-MED ONE Stop: 04/15/17 07:11 Last Admin: 04/15/17 07:10 Dose: 5 ml Bupivacaine HCl (Sensorcaine-Mpf 0.5%) 5 ml INJECT .ST-MED ONE Stop: 04/15/17 08:40 Last Admin: 04/15/17 08:39 Dose: 5 ml Bupivacaine HCl (Sensorcaine-Mpf 0.5%) 10 ml INJECT .STK-MED ONE Stop: 04/15/17 16:02 Fentanyl (Sublimaze) 100 mcg IV .STK-MED ONE Stop: 04/15/17 15:51 Gentamicin Sulfate (Gentamicin) Confirm Administered Dose 80 mg .ROUTE .STK-MED ONE Stop: 04/15/17 06:45 Gentamicin Sulfate (Gentamicin) 80 mg .XX .STK-MED ONE Stop: 04/15/17 08:22 Last Admin: 04/15/17 08:21 Dose: 80 mg Gentamicin Sulfate (Gentamicin) Confirm Administered Dose 80 mg .ROUTE .STK-MED ONE Stop: 04/15/17 08:25 Gentamicin Sulfate (Gentamicin) 80 mg .XX .STK-MED ONE Stop: 04/15/17 08:27 Last Admin: 04/15/17 08:26 Dose: 80 mg Hydromorphone HCl (Dilaudid) 1 mg IVPUSH ONETIME ONE Stop: 04/14/17 14:15 Last Admin: 04/14/17 14:20 Dose: 1 mg Vancomycin HCl 1.5 gm/ Sodium (Chloride) 500 mls @ 334 mls/hr IV ONETIME ONE Stop: 04/14/17 15:30 Last Admin: 04/14/17 14:21 Dose: 334 mls/hr Sodium Chloride (Normal Saline) 1,000 mls @ 100 mls/hr IV ASDIRECTED [facility] Last Admin: 04/14/17 18:17 Dose: 100 mls/hr Sodium Chloride (Normal Saline) 1,000 mls @ as directed IV .STK-MED ONE Stop: 04/15/17 15:51 Ibuprofen (Motrin) 600 mg PO Q6H [facility] Last Admin: 04/16/17 05:34 Dose: 600 mg Ibuprofen (Motrin) 800 mg PO Q6HR [facility] Last Admin: 04/16/17 18:01 Dose: 800 mg Ketorolac Tromethamine (Toradol) 30 mg IVPUSH .STK-MED ONE Stop: 04/15/17 15:51 Lidocaine HCl (Xylocaine-Mpf 1%) Confirm Administered Dose 30 ml .ROUTE .STK- MED ONE Stop: 04/15/17 06:31 Lidocaine HCl (Xylocaine-Mpf 1%) 5 ml INJECT .STK-MED ONE Stop: 04/15/17 07:10 Last Admin: 04/15/17 07:09 Dose: 5 ml Lidocaine HCl (Xylocaine-Mpf 1%) 5 ml INJECT .STK-MED ONE Stop: 04/15/17 07:11 Last Admin: 04/15/17 07:10 Dose: 5 ml Lidocaine HCl (Xylocaine-Mpf 1%) 5 ml INJECT .STK-MED ONE Stop: 04/15/17 08:40 Last Admin: 04/15/17 08:39 Dose: 5 ml Lidocaine HCl (Xylocaine-Mpf 1%) 30 ml INJECT .STK-MED ONE Stop: 04/15/17 16:02 Midazolam HCl (Versed 1 Mg/Ml) 2 mg IV .STK-MED ONE Stop: 04/15/17 15:51 Morphine Sulfate (Morphine) 1 mg IVPUSH Q4H PRN PRN Reason: severe pain Last Admin: 04/15/17 17:32 Dose: 1 mg Ondansetron HCl (Zofran) 4 mg IV .STK-MED ONE Stop: 04/15/17 15:51 Propofol (Diprivan 100 Ml) 830 mg IV .STK-MED ONE Stop: 04/15/17 15:51 Vancomycin HCl (Vancomycin) Confirm Administered Dose 2 gm .ROUTE .STK-MED ONE Stop: 04/15/17 04:47 Last Admin: 04/15/17 05:25 Dose: Not Given - Exam General: Reports: Alert, Oriented Neck: Reports: Supple Lungs: Reports: Clear to Auscultation Cardiovascular: Reports: Regular Rate, Regular Rhythm Extremities: No Pedal Edema *Q Meaningful Use (DIS) - VTE *Q VTE Criteria *Q: - Stroke *Q Stroke Criteria *Q: - AMI *Q AMI Criteria *Q:
[2017-04-17 14:18] VITALS: BP 141/82
== END 2017-04-17 15:20 | disposition home or self-care (01) | DRG 617 ==
LOC: DL.ED 13:36 → UNDOADMIN 14:58 → DL.MS 14:58
PROVIDERS: ADMIT Internal Medicine; ATTEND Internal Medicine
PROC: 0Y6R0Z0 Detachment at Right 2nd Toe, Complete, Open Approach (ICD-10-PCS; principal; 2017-04-15)
DX: E11.622 Type 2 diabetes mellitus with other skin ulcer (principal); M86.9 Osteomyelitis, unspecified; L03.119 Cellulitis of unspecified part of limb; I10 Essential (primary) hypertension; E11.65 Type 2 diabetes mellitus with hyperglycemia; F17.210 Nicotine dependence, cigarettes, uncomplicated; Z79.4 Long term (current) use of insulin; Z88.8 Allergy status to other drugs, medicaments and biological substances; Z91.018 Allergy to other foods; Z79.899 Other long term (current) drug therapy
CPT/HCPCS: 36415; 80048; 80053; 80202; 80305; 81001; 82962; 83605; 85025; 87040; 87070; 87075; 87077; 87186; 96365; 96375; 99285; A9270-GY; J1170; J1580; J1644; J1815-GY; J1885; J2250; J2270; J2405; J2543; J2704; J3010; J3370; J7030; J7040; J7050

== ENCOUNTER 2017-05-15 16:18 | Emergency (ER) | payer MEDICAID, OTHER ==
--- NOTE | 2017-05-15 17:48 | EDM.PDOC ---
ED HPI GENERAL MEDICAL PROBLEM - General Chief Complaint: Lower Extremity Injury/Pain Stated Complaint: POSSIBLE FOOT INFECTION, [id number] Time Seen by Provider: 05/15/17 17:40 Source of Information: Reports: Patient History Limitations: Reports: No Limitations - History of Present Illness INITIAL COMMENTS - FREE TEXT/NARRATIVE: This 46 yo male patient reports to the ED with pain in his right foot with some discharge. The patient was sent to the ED by a home health nurse due to possible infection. The patient reports he had the amputation done 1 month ago and has been taking Clindamycin 3 times per day since surgery. Duration: Day(s):, Constant, Getting Worse Location: Reports: Lower Extremity, Right Quality: Reports: Ache, Dull Severity: Moderate Improves with: Reports: None Worsens with: Reports: None Right Feet Pain Score (Numeric/FACES): 6 - Related Data Allergies Allergy/AdvReac Type Severity Reaction Status Date / Time propoxyphene napsylate Allergy Itching Verified 05/15/17 16:27 [From [place]] fish Allergy Swelling Uncoded 01/14/17 00:07 Home Meds: Home Meds Insulin Aspart [NovoLOG] 8 units SQ TID 09/06/14 [History] Insulin Detemir [Levemir] 15 units SQ BID 09/06/14 [History] Aspirin 1 tab CHEW DAILY 11/30/14 [History] Ibuprofen 1 tab PO TID 11/30/14 [History] Pregabalin [Lyrica] 1 tab PO TID 11/30/14 [History] Lisinopril 10 mg PO DAILY 06/15/16 [History] Acetaminophen [Tylenol] 650 mg PO ASDIRECTED PRN 01/02/17 [History] Mirtazapine 15 mg PO DAILY 04/14/17 [History] Clindamycin HCl [Cleocin] 300 mg PO QID #20 cap 04/17/17 [Rx] Hydrocodone/Acetaminophen [Hydrocodon-Acetaminophn 10-325] 1 tab PO Q6H PRN #12 tablet 04/17/17 [Rx] Venlafaxine HCl [Venlafaxine ER] 75 mg PO DAILY 04/17/17 [History] Venlafaxine HCl [Venlafaxine ER] 150 mg PO DAILY 04/17/17 [History] Past Medical History Other HEENT History: blurred vision at times Cardiovascular History: Reports: Hypertension Respiratory History: Reports: None Gastrointestinal History: Reports: None Genitourinary History: Reports: None Musculoskeletal History: Reports: Amputation Other Musculoskeletal History: right foot 3rd toe, left foot 5th toe, left hand 3rd digit, plate in right hand Neurological History: Reports: None Psychiatric History: Reports: None Endocrine/Metabolic History: Reports: Diabetes, Type II Hematologic History: Reports: None Immunologic History: Reports: None Oncologic (Cancer) History: Reports: None Dermatologic History: Reports: None - Infectious Disease History Infectious Disease History: Reports: Chicken Pox - Past Surgical History Head Surgeries/Procedures: Reports: None Musculoskeletal Surgical History: Reports: Amputation, Arthroscopic Knee Other Musculoskeletal Surgeries/Procedures:: 2 toes amputated Social & Family History - Family History Family Medical History: Noncontributory - Tobacco Use Smoking Status *Q: Current Every Day Smoker Years of Tobacco use: 35 Packs/Tins Daily: 0.5 Used Tobacco, but Quit: No Month Tobacco Last Used: 2011 Second Hand Smoke Exposure: Yes - Caffeine Use Caffeine Use: Reports: Coffee - Alcohol Use Days Per Week of Alcohol Use: 1 Number of Drinks Per Day: 12 Total Drinks Per Week: 12 - Recreational Drug Use Recreational Drug Use: Yes Drug Use in Last 12 Months: Yes Recreational Drug Type: Reports: Marijuana/Hashish Recreational Drug Use Frequency: Not Used In Over 6 Months - Living Situation & Occupation Living situation: Reports: Other Review of Systems - Review of Systems Review Of Systems: ROS reveals no pertinent complaints other than HPI. ED EXAM, GENERAL - Physical Exam Exam: See Below Exam Limited By: No Limitations General Appearance: Alert, WD/WN, Moderate Distress Eye Exam: Bilateral Eye: EOMI, Normal Inspection, PERRL Ears: Normal External Exam, Normal Canal, Hearing Grossly Normal, Normal TMs Nose: Normal Inspection, Normal Mucosa, No Blood Throat/Mouth: Normal Inspection Head: Atraumatic, Normocephalic Neck: Normal Inspection, Supple, Non-Tender, Full Range of Motion Respiratory/Chest: No Respiratory Distress, Lungs Clear, Normal Breath Sounds, No Accessory Muscle Use, Chest Non-Tender Cardiovascular: Normal Peripheral Pulses, Regular Rate, Rhythm, No Edema, No Gallop, No JVD, No Murmur, No Rub GI/Abdominal: Normal Bowel Sounds, Soft, Non-Tender, No Organomegaly, No Distention, No Abnormal Bruit, No Mass (Male) Exam: Deferred Rectal (Males) Exam: Deferred Extremities: Redness (the patient has mild redness of his right foot with no apparent discharge at this time. ) Neurological: Alert, Oriented, CN II-XII Intact, Normal Cognition, Normal Gait, Normal Reflexes, No Motor/Sensory Deficits Psychiatric: Normal Affect, Normal Mood Skin Exam: Warm, Dry, Intact, Normal Color, No Rash Lymphatic: No Adenopathy Course - Vital Signs Last Recorded V/S: Last Vital Signs Temp 37.3 C 05/15/17 16:35 Pulse 91 05/15/17 16:35 Resp 16 05/15/17 16:35 BP 138/92 H 05/15/17 16:35 Pulse Ox 100 05/15/17 16:35 - Orders/Labs/Meds Orders: Active Orders 24 hr Category Date Time Status Foot Comp Min 3V Rt [CR] Urgent Exams 05/15/17 17:44 Taken CULTURE BLOOD [BC] Stat Lab 05/15/17 17:54 Received Acetaminophen/HYDROcodone [Helper 325-10 MG] Med 05/15/17 19:05 Once 1 tab PO ONETIME ONE Labs: Laboratory Tests 05/15/17 05/15/17 05/15/17 Range/Units 17:54 17:54 17:54 WBC 9.9 (5.0-10.0) 10^3/uL RBC 4.70 (4.6-6.2) 10^6/uL Hgb 13.3 L D (14.0-18.0) g/dL Hct 38.5 L (40.0-54.0) % MCV 81.9 D (80-100) fL MCH 28.3 (27.0-34.0) pg MCHC 34.5 (33.0-35.0) g/dL Plt Count 200 D (150-450) 10^3/uL Neut % (Auto) 76.6 H (42.2-75.2) % Lymph % (Auto) 17.6 L (20.5-50.1) % [place] % (Auto) 4.8 (2-8) % Eos % (Auto) 0.8 L (1.0-3.0) % Baso % (Auto) 0.2 (0.0-1.0) % Sodium 133 L (135-145) mmol/L Potassium 3.9 (3.6-5.0) mmol/L Chloride 101 (101-111) mmol/L Carbon Dioxide 25.0 (21.0-31.0) mmol/L Anion Gap 10.9 BUN 14 (7-18) mg/dL Creatinine 0.8 (0.6-1.3) mg/dL Est Cr Clr Drug Dosing 127.99 mL/min Estimated GFR (MDRD) > 60 BUN/Creatinine Ratio 17.50 Glucose 317 H (74-105) mg/dL Lactic Acid 1.1 (0.5-2.2) mmol/L Calcium 9.2 (8.4-10.2) mg/dl Total Bilirubin 0.6 (0.2-1.0) mg/dL AST 27 (10-42) IU/L ALT 29 (10-60) IU/L Alkaline Phosphatase 95 (42-121) IU/L Total Protein 8.5 H (6.7-8.2) g/dl Albumin 3.7 (3.2-5.5) g/dl Globulin 4.8 Albumin/Globulin Ratio 0.77 Departure - Departure Time of Disposition: 19:07 Disposition: Home, Self-Care 01 Condition: Fair Clinical Impression: Right foot pain - Discharge Information Instructions: Foot Pain Forms: ED Department Discharge Care Plan Goals: The patient was advised of the examination, lab and x-ray results during the visit. The patient was given a dose of Helper while in the ED for pain. The patient was encouraged to follow-up with Dr. Pinon for continued evaluation and further management. If the patient has any additional symptoms or concerns, the patient should follow-up with his primary care facility or return to the ED. - My Orders Last 24 Hours: My Active Orders 05/15/17 17:44 Foot Comp Min 3V Rt [CR] Urgent 05/15/17 17:54 CULTURE BLOOD [BC] Stat 05/15/17 19:05 Acetaminophen/HYDROcodone [Helper 325-10 MG] 1 tab PO ONETIME ONE - Assessment/Plan Last 24 Hours: My Active Orders 05/15/17 17:44 Foot Comp Min 3V Rt [CR] Urgent 05/15/17 17:54 CULTURE BLOOD [BC] Stat 05/15/17 19:05 Acetaminophen/HYDROcodone [Helper 325-10 MG] 1 tab PO ONETIME ONE
[2017-05-15 18:38] LABS: CHLORIDE,CL 101 mmol/L (101-111); SODIUM,NA 133 mmol/L (135-145)
[2017-05-15] MEDS: Acetaminophen/HYDROcodone 325-10 MG Tab PO ONE (19:17)
[2017-05-15 19:19] VITALS: BP 139/98
== END 2017-05-15 19:20 | disposition home or self-care (01) ==
LOC: DL.ED 16:18
DX: M79.671 Pain in right foot (principal); I10 Essential (primary) hypertension; E11.9 Type 2 diabetes mellitus without complications; F17.210 Nicotine dependence, cigarettes, uncomplicated; Z79.4 Long term (current) use of insulin; Z88.8 Allergy status to other drugs, medicaments and biological substances; Z91.013 Allergy to seafood; Z79.82 Long term (current) use of aspirin; Z79.899 Other long term (current) drug therapy
CPT/HCPCS: 36415; 73630; 80053; 83605; 85025; 87040; 99283; A9270

== ENCOUNTER 2017-07-27 19:24 | Emergency (ER) | payer MEDICAID, OTHER ==
[2017-07-27] MEDS ORDERED: Sodium Chloride 0.9% 10 ML Syringe FLUSH PRN (19:32)
[2017-07-27] MEDS ORDERED: Sodium Chloride 0.9% 1,000 ML IV ONE ×3 (19:34→20:35)
[2017-07-27] MEDS ORDERED: Ondansetron 4 MG/2 ML SDV IV ONE ×2 (19:36→21:19)
[2017-07-27] MEDS ORDERED: Morphine 4 MG/ML Syringe IVPUSH ONE (19:42)
[2017-07-27] MEDS ORDERED: Insulin Regular, Human 100 Units/ML 3 ML Vial IV ONE ×3 (19:59→21:26)
[2017-07-27] MEDS ORDERED: Pantoprazole 40 MG Vial IVPUSH ONE (20:01)
[2017-07-27 20:20] LABS: CHLORIDE,CL 101 mmol/L (101-111); SODIUM,NA 131 mmol/L (135-145)
[2017-07-27] MEDS ORDERED: Morphine 2 MG/ML Syringe IVPUSH ONE (21:48)
[2017-07-27 23:18] VITALS: BP 97/64
--- NOTE | 2017-07-28 05:22 | ER ---
SUBJECTIVE: The patient is a 46-year-old male, with IDDM, noncompliance, multiple substance abuse. He comes in with midepigastric abdominal tenderness, nausea, vomiting, feel badly, decreased appetite, elevated sugars. He comes in via EMS. He ate some rice and biscuits about 2 hours ago. No diarrhea. He is passing urine. He has cramping midepigastric abdominal pain. No trauma. SOCIAL HISTORY: He has been smoking cigarettes for 20 years. He drinks coffee. He uses alcohol rarely. He does use marijuana and hashish. CURRENT MEDICATIONS: Are reportedly supposed to be: 1. NovoLog 8 units subcutaneous t.i.d. 2. Levemir 15 units subcutaneous b.i.d. 3. Aspirin 1 tablet p.o. daily. 4. Ibuprofen 1 tablet p.o. t.i.d. 5. Pregabalin 1 tablet p.o. b.i.d. 6. Lisinopril 10 mg p.o. daily. 7. Mirtazapine 15 mg p.o. daily. 8. Clindamycin 300 mg p.o. q.i.d. 9. Hydrocodone 1 tablet p.o. q.6 hours. 10.Venlafaxine 150 mg p.o. daily. ALLERGIES: Darvocet causes itching, fish causes swelling. REVIEW OF SYSTEMS: Midepigastric abdominal pain and cramping, some nausea, some diarrhea and cramping. No bleeding. No melena or hematochezia. Mild headache. No syncope or near syncope. No HEENT issues. No chest pain. No shortness of breath. No coughing. He does not always take his medicines. Please see HPI. OBJECTIVE: Vital Signs: He is afebrile. Blood pressure is 121/77, respiratory rate 16, and oxygen is 99% on room air. General: Very warm, appears much older than his stated age. He does follow instructions. Comes in via EMS, on the gurney. He is very disheveled. His initial sugars are over than 700. He is A and O x3. GCS of 15. HEENT: Mucous membranes somewhat dry. No jaundice. Chest: Clear. Cardiovascular: RRR. Abdomen: Some midepigastric abdominal tenderness. No guarding or rebound. It is atraumatic. Back: No CVAT. Extremities: Worn and some scarring and many tattoos, but no acute process noted. LAB/STUDIES: White count is 5.7, H and H is 13.1 and 39.2, respectively. Platelets are normal, differential not remarkable. Sodium is 131, other electrolytes are not remarkable. Creatinine is 0.9. Glucose is 707. Lactic acid is 2.7. Total bili is normal at 0.4. Liver function tests are not remarkable. Amylase is normal at 49, lipase is 78. His urinalysis does show trace occult blood. His drug screen is positive for methamphetamine. His ketones were negative. EMERGENCY ROOM COURSE: He was given insulin, antiemetics, multiple liters of IV fluids. His sugar after his first dose of insulin came down to 500, he was given further dose of insulin and went down to 446. Went down to 331 and finally down to 260. His nausea is gone, his pain is gone. He is feeling much better. He is talking on his phone. He is ready for discharge. ASSESSMENT: 1. Poorly-controlled insulin-dependent diabetes mellitus with hyperglycemia. 2. Dehydration. 3. Midepigastric abdominal pain, consistent with dyspepsia/gastritis, improved. 4. Nausea, resolved. PLAN: Discharged to home in stable and improved condition. Continue with medicines. Follow blood sugars closely. Get an appointment early this week to recheck with his PCP. Be compliant. Hydrated and bland diet. [facility] /[id number]
== END 2017-07-27 23:05 | disposition home or self-care (01) ==
LOC: DL.ED 19:24
DX: E11.65 Type 2 diabetes mellitus with hyperglycemia (principal); E86.0 Dehydration; R10.13 Epigastric pain; F17.210 Nicotine dependence, cigarettes, uncomplicated; Z79.82 Long term (current) use of aspirin; Z79.899 Other long term (current) drug therapy; Z88.8 Allergy status to other drugs, medicaments and biological substances; Z79.4 Long term (current) use of insulin
CPT/HCPCS: 36415; 80053; 80305; 81001; 82009; 82150; 82962; 83036; 83605; 83690; 85025; 87040; 96361; 96374; 96375; 96376; 99284; C9113; J1815; J2270; J2405; J7030

== ENCOUNTER 2018-05-08 10:31 | Inpatient (IN) | payer MEDICAID, OTHER ==
[2018-05-08] MEDS ORDERED: Acetaminophen/HYDROcodone 325-10 MG Tab PO ONE (14:39)
[2018-05-08] MEDS ORDERED: Calcium Carbonate 500 MG Tab.Chew PO PRN (14:51)
[2018-05-08] MEDS ORDERED: Docusate Sodium 100 MG Cap PO PRN (14:51)
[2018-05-08] MEDS ORDERED: Aluminum Hydroxide/Magnesium Hydroxide/Simethicone Susp 30 ML Cup PO PRN (14:51)
[2018-05-08] MEDS ORDERED: Magnesium Hydroxide 400 MG/5 ML Susp 30 ML Cup PO PRN (14:51)
[2018-05-08] MEDS ORDERED: Bisacodyl 10 MG Supp RECTAL PRN (14:51)
--- NOTE | 2018-05-08 15:09 | PCM.HP ---
H&P History of Present Illness - General Date of Service: 05/08/18 Admit Problem/Dx: Admission Diagnosis/Problem Admission Diagnosis/Problem Foot infection Source of Information: Patient History Limitations: Reports: No Limitations - History of Present Illness Initial Comments - Free Text/Narative: Mr. Echevarria is a 47-year-old male with past medical history significant for hypertension, type 2 diabetes, and hepatitis C. He also has h/o right second and third toe amputations and amputation of the right third and second metatarsals partially around March 2017. He was admitted at [facility] and managed for cellulitis and wound of the right foot and also bacteremia. His blood cultures from admission are 2 out of 2 sets Bacillus species. The wound culture from the right plantar ulcer, showed Klebsiella oxytoca, methicillin-susceptible Staphylococcus aureus, and group B strep. MRI of the right foot showed no evidence of osteomyelitis or septic arthritis. Findings were consistent with cellulitis. MRI of the right ankle showed no evidence of osteomyelitis. It showed some marrow edema of the right median cuneiform and the base of the first metatarsal , and focal marrow edema within the base of the right fourth metatarsal. ID was consulted. IV meropenem was recommended and plan was to complete about 4-6 weeks Course. at bedside evaluation patient's denies any symptoms. No fever, chills, nausea, vomiting. Improves with: Reports: None Worsens with: Reports: None Associated Symptoms: Reports: No Other Symptoms Right Feet Pain Score (Numeric/FACES): 7 - Related Data Allergies/Adverse Reactions: Allergies Allergy/AdvReac Type Severity Reaction Status Date / Time propoxyphene napsylate Allergy Itching Verified 05/08/18 14:08 [From Bailey-N] fish Allergy Swelling Uncoded 05/08/18 13:42 Home Medications: Home Meds Insulin Aspart [NovoLOG] 20 units SQ BID 09/06/14 [History] Insulin Detemir [Levemir] 40 units SQ QAM 09/06/14 [History] Aspirin 1 tab CHEW DAILY 11/30/14 [History] Lisinopril 10 mg PO DAILY 06/15/16 [History] Pregabalin [Lyrica] 100 mg PO TID 04/30/18 [History] Hydrocodone/Acetaminophen [Odell 10-325 Tablet] 1 tab PO Q6HR 05/08/18 [History] Nicotine [Nicotine Patch] 14 mg TOP DAILY 05/08/18 [History] Venlafaxine [Effexor] 225 mg PO DAILY 05/08/18 [History] Past Medical History HEENT History: Reports: Other (See Below) Other HEENT History: blurred vision at times Cardiovascular History: Reports: Hypertension Respiratory History: Reports: None Gastrointestinal History: Reports: None Genitourinary History: Reports: None Musculoskeletal History: Reports: Amputation Other Musculoskeletal History: right foot 2nd and 3rd toe, left foot 5th toe, left hand 3rd digit, plate in right hand Neurological History: Reports: None Psychiatric History: Reports: Depression Endocrine/Metabolic History: Reports: Diabetes, Type II Hematologic History: Reports: None Immunologic History: Reports: None Oncologic (Cancer) History: Reports: None Dermatologic History: Reports: Cellulitis, Other (See Below) Other Dermatologic History: diabetic foot ulcers - Infectious Disease History Infectious Disease History: Reports: MRSA - Past Surgical History Head Surgeries/Procedures: Reports: None HEENT Surgical History: Reports: Naso-Sinus Surgery Cardiovascular Surgical History: Reports: None Respiratory Surgical History: Reports: None GI Surgical History: Reports: None Male Surgical History: Reports: None Endocrine Surgical History: Reports: None Neurological Surgical History: Reports: None Musculoskeletal Surgical History: Reports: Amputation, Arthroscopic Knee Other Musculoskeletal Surgeries/Procedures:: 2 toes amputated Social & Family History - Family History Family Medical History: Noncontributory - Tobacco Use Smoking Status *Q: Current Some Day Smoker Years of Tobacco use: 32 Packs/Tins Daily: 0.2 Tobacco Use Comment: pt want to continue to use nicotine patch Second Hand Smoke Exposure: No - Caffeine Use Caffeine Use: Reports: Coffee, Soda - Recreational Drug Use Recreational Drug Use: No - Living Situation & Occupation Living situation: Reports: Other H&P Review of Systems - Review of Systems: Review Of Systems: See Below General: Reports: No Symptoms HEENT: Reports: No Symptoms Pulmonary: Reports: No Symptoms Cardiovascular: Reports: No Symptoms Gastrointestinal: Reports: No Symptoms Genitourinary: Reports: No Symptoms Musculoskeletal: Reports: No Symptoms Skin: Reports: No Symptoms Psychiatric: Reports: No Symptoms Neurological: Reports: No Symptoms Hematologic/Lymphatic: Reports: No Symptoms Immunologic: Reports: No Symptoms Exam - Exam Exam: See Below - Vital Signs Vital Signs: Last Vital Signs Temp 98.2 F 05/08/18 13:36 Pulse 82 05/08/18 13:36 Resp 20 05/08/18 13:36 BP 122/79 05/08/18 13:36 Pulse Ox 98 05/08/18 13:36 Weight: 209 lb - Exam General: Alert, Oriented, 4 HEENT: PERRLA, Hearing Intact, Mucosa Moist & [place], Nares Patent, Normal Nasal Septum, Posterior Pharynx Clear, Conjunctiva Clear, EOMI, EACs Clear, TMs Clear Neck: Supple, Trachea Midline, 2 Lungs: Clear to Auscultation, Normal Respiratory Effort Cardiovascular: Regular Rate, Regular Rhythm GI/Abdominal Exam: Normal Bowel Sounds, Soft, Non-Tender, No Organomegaly, No Distention, No Abnormal Bruit, No Mass, Pelvis Stable (Male) Exam: No Hernia, Normal Inspection, Normal Prostate, Circumcised Rectal (Males) Exam: Normal Exam, Normal Rectal Tone, Prostate Normal Back Exam: Normal Inspection, Full Range of Motion, NT Extremities: Normal Inspection, Normal Range of Motion, Non-Tender, No Pedal Edema, Normal Capillary Refill Skin: Warm, Dry, Intact Neurological: Cranial Nerves Intact, Reflexes Equal Bilateral Neuro Extensive - Mental Status: Alert, Oriented x3, Normal Mood/Affect, Normal Cognition Neuro Extensive - Motor, Sensory, Reflexes: CN II-XII Intact, Normal Gait, Normal Reflexes Psychiatric: Alert, Normal Affect, Normal Mood - Problem List (1) Sepsis SNOMED Code(s): 90858230 ICD Code: A41.9 - SEPSIS, UNSPECIFIED ORGANISM Status: Acute Current Visit: Yes (2) Bacteremia SNOMED Code(s): 3470540 ICD Code: R78.81 - BACTEREMIA Status: Acute Current Visit: Yes (3) Alcohol abuse SNOMED Code(s): 12623933 ICD Code: F10.10 - ALCOHOL ABUSE, UNCOMPLICATED Status: Acute Current Visit: No (4) Amputated toe of right foot SNOMED Code(s): 292427806, 549354446 ICD Code: Z89.421 - ACQUIRED ABSENCE OF OTHER RIGHT TOE(S) Status: Acute Current Visit: No Onset Date: ~06/15/16 Problem Details: recent amputation of right middle toe 3-4 weeks ago now with cellulitsi, possbile abscess with sutures still intact, the patient noncomplainat with care/follow-up 06/15/2016 (5) Cellulitis SNOMED Code(s): 796288572 ICD Code: L03.90 - CELLULITIS, UNSPECIFIED Status: Acute Current Visit: No Qualifiers: Site of cellulitis: extremity Site of cellulitis of extremity: lower extremity Laterality: right Qualified Code(s): L03.115 - Cellulitis of right lower limb (6) Substance abuse SNOMED Code(s): 78602652 ICD Code: F19.10 - OTHER PSYCHOACTIVE SUBSTANCE ABUSE, UNCOMPLICATED Status : Acute Current Visit: No (7) Uncontrolled diabetes mellitus SNOMED Code(s): 79878255, 025759939 ICD Code: E11.65 - TYPE 2 DIABETES MELLITUS WITH HYPERGLYCEMIA Status: Acute Current Visit: No Qualifiers: Diabetes mellitus type: type 1 Glycemic state: with hyperglycemia Qualified Code(s): E10.65 - Type 1 diabetes mellitus with hyperglycemia Problem List Initiated/Reviewed/Updated: Yes Orders Last 24hrs: Active Orders 24 hr Category Date Time Status Patient Status [ADT] Routine ADT 05/08/18 14:51 Ordered Ambulate [RC] ASDIRECTED Care 05/08/18 14:51 Ordered Antiembolic Devices [RC] .Routine Care 05/08/18 14:55 Ordered Communication Order [RC] DAILY Care 05/09/18 09:00 Active Communication Order [RC] DAILY Care 05/09/18 09:00 Active Influenza Vaccine Charge [RC] .DISCHARGE Care 05/08/18 13:44 Active VTE/DVT Education [RC] PER UNIT ROUTINE Care 05/08/18 14:55 Ordered Vital Signs [RC] Q4H Care 05/08/18 14:51 Ordered Wound Care [RC] DAILY Care 05/08/18 14:41 Inactive Wound Care [RC] DAILY Care 05/08/18 14:49 Active Wound Care [RC] Q3D Care 05/10/18 14:44 Inactive OT Evaluation and Treatment [CONS] Routine Cons 05/08/18 14:59 Ordered PT Evaluation and Treatment [CONS] Routine Cons 05/08/18 14:59 Ordered Consistent Carbohydrate Diet [DIET] Diet 05/08/18 Dinner Ordered BASIC METABOLIC PANEL,BMP [CHEM] Routine Lab 05/08/18 14:51 Ordered CBC WITH AUTO DIFF [HEME] Routine Lab 05/08/18 14:51 Ordered Acetaminophen [Tylenol] Med 05/08/18 14:51 Ordered 650 mg PO Q4H PRN Acetaminophen/HYDROcodone [Odell 325-10 MG] Med 05/08/18 14:39 Once 1 tab PO ONETIME ONE Acetaminophen/HYDROcodone [Odell 325-10 MG] Med 05/08/18 18:00 Ordered 1 tab PO Q6HR Alum Hydrox/Mag Hydrox/Simeth [Mag-Al Plus] Med 05/08/18 14:51 Ordered 30 ml PO Q4H PRN Aspirin Med 05/09/18 09:00 Ordered 1 tab CHEW DAILY Bisacodyl [Dulcolax] Med 05/08/18 14:51 Ordered 10 mg RECTAL DAILY PRN Calcium Carbonate [Tums] Med 05/08/18 14:51 Ordered 500 mg PO Q4H PRN Docusate Sodium [Colace] Med 05/08/18 14:51 Ordered 100 mg PO DAILY PRN Heparin Sodium Med 05/08/18 15:00 Ordered 5,000 units SUBCUT Q12H Insulin Aspart [NovoLOG] Med 05/08/18 21:00 Ordered 20 units SQ BID Insulin Detemir Med 05/09/18 09:00 Ordered 40 units SQ QAM Lisinopril [Prinivil] Med 05/09/18 09:00 Ordered 10 mg PO DAILY Magnesium Hydroxide [Milk of Magnesia] Med 05/08/18 14:51 Ordered 30 ml PO BID PRN Nicotine [Habitrol] Med 05/09/18 09:00 Ordered 14 mg TOP DAILY Pharmacy to Dose - InFluenza V [Pharmacy to Dose - Med 05/08/18 13:44 Once InFluenza Vaccine] 1 each IM ONETIME ONE Pregabalin [Lyrica] Med 05/08/18 21:00 Ordered 100 mg PO TID Venlafaxine [Effexor] Med 05/09/18 09:00 Ordered 225 mg PO DAILY Zolpidem [Ambien] Med 05/08/18 14:58 Ordered 5 mg PO BEDTIME PRN DVT/VTE Prophylaxis Reflex [OM.PC] Routine Oth 05/08/18 14:51 Ordered Medication Orders Acetaminophen (Tylenol) 650 mg PO Q4H PRN PRN Reason: Pain (mild 1-3 )/fever Hydrocodone Bitart/Acetaminophen (Odell 325-10 Mg) 1 tab PO ONETIME ONE Stop: 05/08/18 14:40 Hydrocodone Bitart/Acetaminophen (Odell 325-10 Mg) 1 tab PO Q6HR [facility] Al Hydroxide/Mg Hydroxide (Mag-Al Plus) 30 ml PO Q4H PRN PRN Reason: Dyspepsia Aspirin (Aspirin) mg CHEW DAILY [facility] Bisacodyl (Dulcolax) 10 mg RECTAL DAILY PRN PRN Reason: Constipation Calcium Carbonate/Glycine (Tums) 500 mg PO Q4H PRN PRN Reason: Dyspepsia Docusate Sodium (Colace) 100 mg PO DAILY PRN PRN Reason: Constipation Heparin Sodium (Porcine) (Heparin Sodium) 5,000 units SUBCUT Q12H [facility] Influenza Virus Vaccine (Pharmacy To Dose - Influenza Vaccine) 1 each IM ONETIME ONE Stop: 05/08/18 13:45 Lisinopril (Prinivil) 10 mg PO DAILY [facility] Magnesium Hydroxide (Milk Of Magnesia) 30 ml PO BID PRN PRN Reason: Constipation Nicotine (Habitrol) 14 mg TOP DAILY [facility] Non-Formulary Medication (Insulin Aspart [Novolog]) 20 units SQ BID [facility] Non-Formulary Medication (Insulin Detemir) 40 units SQ QAM [facility] Non-Formulary Medication (Pregabalin [Lyrica]) 100 mg PO TID [facility] Non-Formulary Medication (Venlafaxine [Effexor]) 225 mg PO DAILY [facility] Zolpidem Tartrate (Ambien) 5 mg PO BEDTIME PRN PRN Reason: insomnia Assessment/Plan Comment:: Right foot diabetic infection, chronic ulcer on the plantar aspect of the right foot at the level of the head of the fourth metatarsal. Cultures from this were Klebsiella oxytoca, group B strep, and methicillin- susceptible Staphylococcus aureus and strep mitis/oralis No evidence of Osteo /abscess on MRI Gram-positive bacillus bacteremia, could be contamination but as it is 2/2 could be pathogen Echo neg for vegetation Meropenem. Plan for about 4-6 weeks of abx History of second and third toe amputations along with amputation of the distal metatarsals of the right foot in March 2017. Open reduction and internal fixation of the right ankle for a trimalleolar fracture in 2004. Hypertension Continue Lisinopril Diabetes SSI plus Levemir POC glucose 4x daily Hypoglycemic protocol Diabetic diet Full code
[2018-05-08] MEDS: Meropenem 500 MG in Sodium Chloride 0.9% 100 ML IV SCH ×2 (17:04→22:27)
[2018-05-08] MEDS: Acetaminophen/HYDROcodone 325-10 MG Tab PO SCH (18:02)
[2018-05-08] MEDS: Heparin Sodium 5,000 Units/ML Vial SUBCUT SCH (22:27)
[2018-05-08] MEDS: Pregabalin 50 MG Cap PO SCH (22:27)
[2018-05-08] MEDS: Sodium Chloride 0.9% 10 ML Syringe FLUSH PRN (23:10)
[2018-05-09] MEDS: Acetaminophen/HYDROcodone 325-10 MG Tab PO SCH ×5 (00:04→23:34)
[2018-05-09] MEDS: Zolpidem 5 MG Tab PO PRN ×2 (00:09→22:11)
[2018-05-09] MEDS: Sodium Chloride 0.9% 10 ML Syringe FLUSH PRN ×5 (05:41→22:22)
[2018-05-09] MEDS: Meropenem 500 MG in Sodium Chloride 0.9% 100 ML IV SCH ×3 (05:42→21:46)
[2018-05-09 06:21] LABS: ANION GAP 13.1; CHLORIDE,CL 102 mmol/L (101-111); SODIUM,NA 137 mmol/L (135-145)
[2018-05-09] MEDS ORDERED: Insulin Lispro 100 Units/ML 3 ML Vial SUBCUT SCH (08:00)
[2018-05-09] MEDS: Aspirin 81 MG Tab.Chew CHEW SCH (08:07)
[2018-05-09] MEDS: Pregabalin 50 MG Cap PO SCH ×3 (09:34→21:50)
[2018-05-09] MEDS: Venlafaxine 37.5 MG Cap.ER PO SCH (09:35)
[2018-05-09] MEDS: Lisinopril 10 MG Tab PO SCH (09:36)
[2018-05-09] MEDS: Nicotine 14 MG/24 Hr Patch TOP SCH (09:51)
[2018-05-09] MEDS: Venlafaxine 150 MG CAP.ER PO SCH (09:52)
[2018-05-09] MEDS: Heparin Sodium 5,000 Units/ML Vial SUBCUT SCH ×2 (09:53→21:50)
[2018-05-09] MEDS: Insulin Glarg,Human.Rec.Analog 100 UNIT/ML ML SUBCUT SCH (09:55)
[2018-05-09] MEDS ORDERED: Insulin Glarg,Human.Rec.Analog 100 UNIT/ML ML SUBCUT ONE (11:47)
[2018-05-09] MEDS: Insulin Lispro 100 Units/ML 3 ML Vial SUBCUT SCH ×2 (12:23→17:46)
[2018-05-10] MEDS: Acetaminophen/HYDROcodone 325-10 MG Tab PO SCH ×4 (05:35→23:30)
[2018-05-10] MEDS: Sodium Chloride 0.9% 10 ML Syringe FLUSH PRN ×4 (05:36→22:30)
[2018-05-10] MEDS: Meropenem 500 MG in Sodium Chloride 0.9% 100 ML IV SCH ×3 (05:36→22:30)
[2018-05-10] MEDS: Insulin Lispro 100 Units/ML 3 ML Vial SUBCUT SCH ×3 (08:19→17:29)
[2018-05-10] MEDS: Aspirin 81 MG Tab.Chew CHEW SCH (08:19)
[2018-05-10] MEDS: Heparin Sodium 5,000 Units/ML Vial SUBCUT SCH ×2 (09:23→20:52)
[2018-05-10] MEDS: Insulin Glarg,Human.Rec.Analog 100 UNIT/ML ML SUBCUT SCH (09:24)
[2018-05-10] MEDS: Nicotine 14 MG/24 Hr Patch TOP SCH (09:27)
[2018-05-10] MEDS: Pregabalin 50 MG Cap PO SCH ×3 (09:30→20:54)
[2018-05-10] MEDS: Venlafaxine 150 MG CAP.ER PO SCH (09:31)
[2018-05-10] MEDS: Lisinopril 10 MG Tab PO SCH (09:33)
[2018-05-10] MEDS: Venlafaxine 37.5 MG Cap.ER PO SCH (09:36)
[2018-05-10] MEDS: Zolpidem 5 MG Tab PO PRN (22:29)
[2018-05-11] MEDS: Sodium Chloride 0.9% 10 ML Syringe FLUSH PRN ×2 (05:41→22:25)
[2018-05-11] MEDS: Meropenem 500 MG in Sodium Chloride 0.9% 100 ML IV SCH ×3 (05:42→22:25)
[2018-05-11] MEDS: Acetaminophen/HYDROcodone 325-10 MG Tab PO SCH ×4 (05:45→23:48)
[2018-05-11] MEDS: Pregabalin 50 MG Cap PO SCH ×3 (08:39→20:30)
[2018-05-11] MEDS: Venlafaxine 150 MG CAP.ER PO SCH (08:39)
[2018-05-11] MEDS: Venlafaxine 37.5 MG Cap.ER PO SCH (08:39)
[2018-05-11] MEDS: Lisinopril 10 MG Tab PO SCH (08:39)
[2018-05-11] MEDS: Aspirin 81 MG Tab.Chew CHEW SCH (08:39)
[2018-05-11] MEDS: Heparin Sodium 5,000 Units/ML Vial SUBCUT SCH ×2 (08:39→20:31)
[2018-05-11] MEDS: Insulin Lispro 100 Units/ML 3 ML Vial SUBCUT SCH ×3 (08:40→17:51)
[2018-05-11] MEDS: Insulin Glarg,Human.Rec.Analog 100 UNIT/ML ML SUBCUT SCH (08:40)
[2018-05-11] MEDS: Nicotine 14 MG/24 Hr Patch TOP SCH (08:42)
[2018-05-11] MEDS: Zolpidem 5 MG Tab PO PRN (22:25)
[2018-05-12] MEDS: Acetaminophen/HYDROcodone 325-10 MG Tab PO SCH ×4 (05:50→23:36)
[2018-05-12] MEDS: Sodium Chloride 0.9% 10 ML Syringe FLUSH PRN ×2 (05:51→06:29)
[2018-05-12] MEDS: Meropenem 500 MG in Sodium Chloride 0.9% 100 ML IV SCH ×3 (05:52→21:54)
[2018-05-12] MEDS: Nicotine 14 MG/24 Hr Patch TOP SCH (09:14)
[2018-05-12] MEDS: Venlafaxine 150 MG CAP.ER PO SCH (09:14)
[2018-05-12] MEDS: Lisinopril 10 MG Tab PO SCH (09:15)
[2018-05-12] MEDS: Venlafaxine 37.5 MG Cap.ER PO SCH (09:15)
[2018-05-12] MEDS: Pregabalin 50 MG Cap PO SCH ×3 (09:15→21:56)
[2018-05-12] MEDS: Aspirin 81 MG Tab.Chew CHEW SCH (09:15)
[2018-05-12] MEDS: Heparin Sodium 5,000 Units/ML Vial SUBCUT SCH ×2 (09:17→21:57)
[2018-05-12] MEDS: Insulin Glarg,Human.Rec.Analog 100 UNIT/ML ML SUBCUT SCH (09:17)
[2018-05-12] MEDS: Insulin Lispro 100 Units/ML 3 ML Vial SUBCUT SCH ×3 (09:17→18:21)
[2018-05-12] MEDS: Zolpidem 5 MG Tab PO PRN (22:06)
[2018-05-13] MEDS: Meropenem 500 MG in Sodium Chloride 0.9% 100 ML IV SCH ×3 (05:39→22:51)
[2018-05-13] MEDS: Acetaminophen/HYDROcodone 325-10 MG Tab PO SCH ×3 (05:41→18:01)
[2018-05-13] MEDS: Lisinopril 10 MG Tab PO SCH (09:00)
[2018-05-13] MEDS: Venlafaxine 150 MG CAP.ER PO SCH (09:00)
[2018-05-13] MEDS: Pregabalin 50 MG Cap PO SCH ×3 (09:00→22:51)
[2018-05-13] MEDS: Aspirin 81 MG Tab.Chew CHEW SCH (09:01)
[2018-05-13] MEDS: Venlafaxine 37.5 MG Cap.ER PO SCH (09:01)
[2018-05-13] MEDS: Insulin Glarg,Human.Rec.Analog 100 UNIT/ML ML SUBCUT SCH (09:01)
[2018-05-13] MEDS: Insulin Lispro 100 Units/ML 3 ML Vial SUBCUT SCH ×3 (09:01→18:01)
[2018-05-13] MEDS: Nicotine 14 MG/24 Hr Patch TOP SCH (09:02)
[2018-05-13] MEDS: Heparin Sodium 5,000 Units/ML Vial SUBCUT SCH ×2 (09:02→22:50)
--- NOTE | 2018-05-13 12:57 | PCM.PN ---
- General Info Date of Service: 05/13/18 Admission Dx/Problem (Free Text): Admission Diagnosis/Problem Admission Diagnosis/Problem Foot infection Subjective Update: Mr. Echevarria is a 47-year-old male with past medical history significant for hypertension, type 2 diabetes, and hepatitis C. He also has h/o right second and third toe amputations and amputation of the right third and second metatarsals partially around March 2017. He was admitted at [facility] and managed for cellulitis and wound of the right foot and also bacteremia. His blood cultures from admission are 2 out of 2 sets Bacillus species. The wound culture from the right plantar ulcer, showed Klebsiella oxytoca, methicillin- susceptible Staphylococcus aureus, and group B strep. MRI of the right foot showed no evidence of osteomyelitis or septic arthritis. Findings were consistent with cellulitis. MRI of the right ankle showed no evidence of osteomyelitis. It showed some marrow edema of the right median cuneiform and the base of the first metatarsal, and focal marrow edema within the base of the right fourth metatarsal. ID was consulted. IV meropenem was recommended and plan was to complete about 4-6 weeks Course. Seen and examine today. No acute event overnight. Denies fever, chills, nausea, vomiting. Functional Status: Reports: Pain Controlled - Review of Systems General: Reports: No Symptoms HEENT: Reports: No Symptoms Pulmonary: Reports: No Symptoms Cardiovascular: Reports: No Symptoms Gastrointestinal: Reports: No Symptoms Genitourinary: Reports: No Symptoms Musculoskeletal: Reports: No Symptoms Skin: Reports: No Symptoms Neurological: Reports: No Symptoms Psychiatric: Reports: No Symptoms - Patient Data Vitals - Most Recent: Last Vital Signs Temp 99.3 F 05/12/18 20:00 Pulse 73 05/13/18 08:00 Resp 18 05/13/18 08:00 BP 101/70 05/13/18 09:00 Pulse Ox 100 05/13/18 08:00 Weight - Most Recent: 197 lb 12.8 oz I&O - Last 24 Hours: Intake & Output 05/12/18 05/13/18 05/13/18 22:59 06:59 14:59 Intake Total 696 610 560 Balance 696 610 560 Lab Results Last 24 Hours: Laboratory Results - last 24 hr 05/12/18 05/12/18 05/13/18 Range/Units 17:03 20:53 07:52 POC Glucose 167 H 215 H 149 H (70-105) mg/dl 05/13/18 05/13/18 Range/Units 10:44 11:31 POC Glucose 72 146 H (70-105) mg/dl Med Orders - Current: Current Medications Acetaminophen (Tylenol) 650 mg PO Q4H PRN PRN Reason: Pain (mild 1-3 )/fever Hydrocodone Bitart/Acetaminophen (Kayenta 325-10 Mg) 1 tab PO Q6HR [facility] Last Admin: 05/13/18 11:54 Dose: 1 tab Al Hydroxide/Mg Hydroxide (Mag-Al Plus) 30 ml PO Q4H PRN PRN Reason: Dyspepsia Aspirin (Aspirin) 81 mg CHEW DAILY@0800 [facility] Last Admin: 05/13/18 09:01 Dose: 81 mg Bisacodyl (Dulcolax) 10 mg RECTAL DAILY PRN PRN Reason: Constipation Calcium Carbonate/Glycine (Tums) 500 mg PO Q4H PRN PRN Reason: Dyspepsia Docusate Sodium (Colace) 100 mg PO DAILY PRN PRN Reason: Constipation Heparin Sodium (Porcine) (Heparin Sodium) 5,000 units SUBCUT Q12H [facility] Last Admin: 05/13/18 09:02 Dose: 5,000 units Meropenem 500 mg/ Sodium (Chloride) 100 mls @ 200 mls/hr IV Q8HR [facility] Stop: 06/03/18 16:01 Last Admin: 05/13/18 05:39 Dose: 200 mls/hr Insulin Glargine (Lantus) 40 unit SUBCUT QAM [facility] Last Admin: 05/13/18 09:01 Dose: 40 units Insulin Human Lispro (Humalog) 5 unit SUBCUT TIDMEALS [facility] Last Admin: 05/13/18 11:54 Dose: 5 units Lisinopril (Prinivil) 10 mg PO DAILY [facility] Last Admin: 05/13/18 09:00 Dose: 10 mg Magnesium Hydroxide (Milk Of Magnesia) 30 ml PO BID PRN PRN Reason: Constipation Nicotine 14 Mg/24 Hr (Patch) 14 each TOP DAILY [facility] Last Admin: 05/13/18 09:02 Dose: 14 each Pregabalin (Lyrica) 100 mg PO TID [facility] Last Admin: 05/13/18 09:00 Dose: 100 mg Sodium Chloride (Saline Flush) 10 ml FLUSH ASDIRECTED PRN PRN Reason: Keep Vein Open Last Admin: 05/12/18 06:29 Dose: 10 ml Venlafaxine HCl (Effexor Xr) 75 mg PO DAILY [facility] Last Admin: 05/13/18 09:01 Dose: 75 mg Venlafaxine HCl (Venlafaxine Hcl Er) 150 mg PO DAILY [facility] Last Admin: 05/13/18 09:00 Dose: 150 mg Zolpidem Tartrate (Ambien) 5 mg PO BEDTIME PRN PRN Reason: insomnia Last Admin: 05/12/18 22:06 Dose: 5 mg Discontinued Medications Hydrocodone Bitart/Acetaminophen (Kayenta 325-10 Mg) 1 tab PO ONETIME ONE Stop: 05/08/18 14:40 Last Admin: 05/08/18 15:22 Dose: 1 tab Influenza Virus Vaccine (Pharmacy To Dose - Influenza Vaccine) 1 each IM ONETIME ONE Stop: 05/08/18 13:45 Influenza Virus Vaccine (Fluzone Quad 0405-1170 Syringe) 60 mcg IM .ONCE ONE Stop: 05/08/18 17:31 Last Admin: 05/08/18 17:51 Dose: Not Given Insulin Glargine (Lantus) 40 unit SUBCUT ONETIME ONE Stop: 05/09/18 11:48 Last Admin: 05/09/18 12:21 Dose: 40 units Insulin Human Lispro (Humalog) 20 unit SUBCUT BID@0800,1200 [facility] Last Admin: 05/09/18 08:10 Dose: 20 units Nicotine (Habitrol) 14 mg TOP DAILY [facility] Last Admin: 05/11/18 08:42 Dose: 14 mg - Exam General: Alert, Oriented HEENT: Pupils Equal, Pupils Reactive, EOMI, Mucous Membr. Moist/[place] Neck: Supple Lungs: Clear to Auscultation, Normal Respiratory Effort Cardiovascular: Regular Rate, Regular Rhythm GI/Abdominal Exam: Normal Bowel Sounds, Soft, Non-Tender, No Organomegaly, No Distention, No Abnormal Bruit, No Mass, Pelvis Stable (Male) Exam: No Hernia, Normal Inspection, Normal Prostate, Circumcised Back Exam: Normal Inspection, Full Range of Motion Extremities: Normal Inspection, Normal Range of Motion, Non-Tender, No Pedal Edema, Normal Capillary Refill Skin: Warm, Dry, Intact Wound/Incisions: Healing Well Neurological: No New Focal Deficit Psy/Mental Status: Alert, Normal Affect, Normal Mood - Problem List & Annotations (1) Sepsis SNOMED Code(s): 33118306 Code(s): A41.9 - SEPSIS, UNSPECIFIED ORGANISM Status: Acute Current Visit : Yes (2) Bacteremia SNOMED Code(s): 5870772 Code(s): R78.81 - BACTEREMIA Status: Acute Current Visit: Yes (3) Alcohol abuse SNOMED Code(s): 49593633 Code(s): F10.10 - ALCOHOL ABUSE, UNCOMPLICATED Status: Acute Current Visit: No (4) Amputated toe of right foot SNOMED Code(s): 829545577, 798089768 Code(s): Z89.421 - ACQUIRED ABSENCE OF OTHER RIGHT TOE(S) Status: Acute Current Visit: No Onset Date: ~06/15/16 Annotation/Comment:: recent amputation of right middle toe 3-4 weeks ago now with cellulitsi, possbile abscess with sutures still intact, the patient noncomplainat with care/follow- up 06/15/2016 (5) Cellulitis SNOMED Code(s): 602584350 Code(s): L03.90 - CELLULITIS, UNSPECIFIED Status: Acute Current Visit: No Qualifiers: Site of cellulitis: extremity Site of cellulitis of extremity: lower extremity Laterality: right Qualified Code(s): L03.115 - Cellulitis of right lower limb (6) Substance abuse SNOMED Code(s): 64914183 Code(s): F19.10 - OTHER PSYCHOACTIVE SUBSTANCE ABUSE, UNCOMPLICATED Status : Acute Current Visit: No (7) Uncontrolled diabetes mellitus SNOMED Code(s): 66980464, 679215260 Code(s): E11.65 - TYPE 2 DIABETES MELLITUS WITH HYPERGLYCEMIA Status: Acute Current Visit: No Qualifiers: Diabetes mellitus type: type 1 Glycemic state: with hyperglycemia Qualified Code(s): E10.65 - Type 1 diabetes mellitus with hyperglycemia - Problem List Review Problem List Initiated/Reviewed/Updated: Yes - My Orders Last 24 Hours: My Active Orders 05/13/18 Lunch Regular Diet [DIET] 05/15/18 06:00 ALANINE AMINOTRANSFERASE,ALT [CHEM] Routine CBC WITH AUTO DIFF [HEME] Routine CREATININE W/GFR [CHEM] Routine CRP [C-REACTIVE PROTEIN] [CHEM] Routine ESR [SEDIMENTATION RATE MANUAL] [HEME] Routine - Plan Plan:: Right foot diabetic infection, chronic ulcer on the plantar aspect of the right foot at the level of the head of the fourth metatarsal. Cultures from this were Klebsiella oxytoca, group B strep, and methicillin- susceptible Staphylococcus aureus and strep mitis/oralis No evidence of Osteo /abscess on MRI Gram-positive bacillus bacteremia, could be contamination but as it is 2/2 could be pathogen Echo neg for vegetation Meropenem. Plan for about 4-6 weeks of abx History of second and third toe amputations along with amputation of the distal metatarsals of the right foot in March 2017. Open reduction and internal fixation of the right ankle for a trimalleolar fracture in 2004. Hypertension Continue Lisinopril Diabetes SSI plus Levemir POC glucose 4x daily Hypoglycemic protocol Diabetic diet Full code
[2018-05-13] MEDS: Zolpidem 5 MG Tab PO PRN (22:58)
[2018-05-14] MEDS: Acetaminophen/HYDROcodone 325-10 MG Tab PO SCH ×5 (00:05→23:59)
[2018-05-14] MEDS: Meropenem 500 MG in Sodium Chloride 0.9% 100 ML IV SCH ×3 (06:22→21:57)
[2018-05-14] MEDS: Lisinopril 10 MG Tab PO SCH (08:55)
[2018-05-14] MEDS: Venlafaxine 150 MG CAP.ER PO SCH (08:55)
[2018-05-14] MEDS: Pregabalin 50 MG Cap PO SCH ×3 (08:56→21:55)
[2018-05-14] MEDS: Insulin Lispro 100 Units/ML 3 ML Vial SUBCUT SCH ×3 (08:56→17:44)
[2018-05-14] MEDS: Venlafaxine 37.5 MG Cap.ER PO SCH (08:56)
[2018-05-14] MEDS: Aspirin 81 MG Tab.Chew CHEW SCH (08:56)
[2018-05-14] MEDS: Insulin Glarg,Human.Rec.Analog 100 UNIT/ML ML SUBCUT SCH (08:57)
[2018-05-14] MEDS: Heparin Sodium 5,000 Units/ML Vial SUBCUT SCH ×2 (08:57→21:56)
[2018-05-14] MEDS: Nicotine 14 MG/24 Hr Patch TOP SCH (08:58)
[2018-05-14] MEDS: Ibuprofen 400 MG Tab PO PRN (14:33)
[2018-05-14] MEDS: Sodium Chloride 0.9% 10 ML Syringe FLUSH PRN ×2 (21:56→22:45)
[2018-05-14] MEDS: QUEtiapine 25 MG Tab PO PRN (22:04)
[2018-05-15] MEDS: Acetaminophen/HYDROcodone 325-10 MG Tab PO SCH ×3 (05:53→18:47)
[2018-05-15] MEDS: Sodium Chloride 0.9% 10 ML Syringe FLUSH PRN ×2 (05:54→15:34)
[2018-05-15] MEDS: Meropenem 500 MG in Sodium Chloride 0.9% 100 ML IV SCH ×2 (05:56→14:46)
[2018-05-15] MEDS: Insulin Lispro 100 Units/ML 3 ML Vial SUBCUT SCH ×3 (08:36→18:48)
[2018-05-15] MEDS: Venlafaxine 150 MG CAP.ER PO SCH (09:20)
[2018-05-15] MEDS: Venlafaxine 37.5 MG Cap.ER PO SCH (09:21)
[2018-05-15] MEDS: Lisinopril 10 MG Tab PO SCH (09:21)
[2018-05-15] MEDS: Aspirin 81 MG Tab.Chew CHEW SCH (09:21)
[2018-05-15] MEDS: Pregabalin 50 MG Cap PO SCH ×3 (09:21→21:42)
[2018-05-15] MEDS: Heparin Sodium 5,000 Units/ML Vial SUBCUT SCH ×2 (09:21→21:41)
[2018-05-15] MEDS: Nicotine 14 MG/24 Hr Patch TOP SCH (09:22)
[2018-05-15] MEDS: Insulin Glarg,Human.Rec.Analog 100 UNIT/ML ML SUBCUT SCH (09:25)
[2018-05-15] MEDS: Ibuprofen 400 MG Tab PO PRN (15:55)
[2018-05-15] MEDS: Piperacillin/Tazobactam 3.375 GM in Sodium Chloride 0.9% 100 ML IV SCH (18:47)
[2018-05-16] MEDS: Acetaminophen/HYDROcodone 325-10 MG Tab PO SCH ×5 (00:18→23:53)
[2018-05-16] MEDS: Piperacillin/Tazobactam 3.375 GM in Sodium Chloride 0.9% 100 ML IV SCH ×3 (00:26→17:45)
[2018-05-16] MEDS: Lisinopril 10 MG Tab PO SCH (08:52)
[2018-05-16] MEDS: Venlafaxine 150 MG CAP.ER PO SCH (08:53)
[2018-05-16] MEDS: Pregabalin 50 MG Cap PO SCH ×3 (08:53→21:39)
[2018-05-16] MEDS: Venlafaxine 37.5 MG Cap.ER PO SCH (08:53)
[2018-05-16] MEDS: Insulin Lispro 100 Units/ML 3 ML Vial SUBCUT SCH ×3 (08:54→17:44)
[2018-05-16] MEDS: Insulin Glarg,Human.Rec.Analog 100 UNIT/ML ML SUBCUT SCH (08:54)
[2018-05-16] MEDS: Aspirin 81 MG Tab.Chew CHEW SCH (08:54)
[2018-05-16] MEDS: Heparin Sodium 5,000 Units/ML Vial SUBCUT SCH ×2 (08:55→21:39)
[2018-05-16] MEDS: Nicotine 14 MG/24 Hr Patch TOP SCH (08:55)
[2018-05-16] MEDS: Sodium Chloride 0.9% 10 ML Syringe FLUSH PRN (09:08)
[2018-05-17] MEDS: Piperacillin/Tazobactam 3.375 GM in Sodium Chloride 0.9% 100 ML IV SCH ×3 (00:30→16:56)
[2018-05-17] MEDS: Acetaminophen/HYDROcodone 325-10 MG Tab PO SCH ×3 (05:48→17:22)
[2018-05-17] MEDS: Insulin Lispro 100 Units/ML 3 ML Vial SUBCUT SCH ×3 (08:27→17:22)
[2018-05-17] MEDS: Insulin Glarg,Human.Rec.Analog 100 UNIT/ML ML SUBCUT SCH (08:28)
[2018-05-17] MEDS: Venlafaxine 150 MG CAP.ER PO SCH (08:29)
[2018-05-17] MEDS: Venlafaxine 37.5 MG Cap.ER PO SCH (08:29)
[2018-05-17] MEDS: Pregabalin 50 MG Cap PO SCH ×3 (08:29→21:38)
[2018-05-17] MEDS: Aspirin 81 MG Tab.Chew CHEW SCH (08:30)
[2018-05-17] MEDS: Heparin Sodium 5,000 Units/ML Vial SUBCUT SCH ×2 (08:30→21:37)
[2018-05-17] MEDS: Nicotine 14 MG/24 Hr Patch TOP SCH (08:31)
[2018-05-17] MEDS: Lisinopril 10 MG Tab PO SCH (08:31)
[2018-05-17] MEDS: Sodium Chloride 0.9% 10 ML Syringe FLUSH PRN (16:56)
[2018-05-17] MEDS: Acetaminophen 325 MG Tab PO PRN (19:23)
[2018-05-18] MEDS: Piperacillin/Tazobactam 3.375 GM in Sodium Chloride 0.9% 100 ML IV SCH ×3 (00:27→17:46)
[2018-05-18] MEDS: Acetaminophen/HYDROcodone 325-10 MG Tab PO SCH ×4 (00:28→17:47)
[2018-05-18] MEDS: QUEtiapine 25 MG Tab PO PRN (00:32)
[2018-05-18 06:53] LABS: ANION GAP 14.7; CHLORIDE,CL 100 mmol/L (101-111); SODIUM,NA 135 mmol/L (135-145)
[2018-05-18] MEDS: Aspirin 81 MG Tab.Chew CHEW SCH (09:24)
[2018-05-18] MEDS: Pregabalin 50 MG Cap PO SCH ×3 (09:24→22:31)
[2018-05-18] MEDS: Lisinopril 10 MG Tab PO SCH (09:24)
[2018-05-18] MEDS: Venlafaxine 150 MG CAP.ER PO SCH (09:24)
[2018-05-18] MEDS: Venlafaxine 37.5 MG Cap.ER PO SCH (09:25)
[2018-05-18] MEDS: Insulin Lispro 100 Units/ML 3 ML Vial SUBCUT SCH ×3 (09:25→17:46)
[2018-05-18] MEDS: Insulin Glarg,Human.Rec.Analog 100 UNIT/ML ML SUBCUT SCH (09:25)
[2018-05-18] MEDS: Heparin Sodium 5,000 Units/ML Vial SUBCUT SCH ×2 (09:27→22:29)
[2018-05-18] MEDS: Nicotine 14 MG/24 Hr Patch TOP SCH (09:27)
--- NOTE | 2018-05-18 13:17 | PCM.PN ---
- General Info Date of Service: 05/18/18 Admission Dx/Problem (Free Text): Admission Diagnosis/Problem Admission Diagnosis/Problem Foot infection Subjective Update: Mr. Echevarria is a 47-year-old male with past medical history significant for hypertension, type 2 diabetes, and hepatitis C. He also has h/o right second and third toe amputations and amputation of the right third and second metatarsals partially around March 2017. He was admitted at [facility] and managed for cellulitis and wound of the right foot and also bacteremia. His blood cultures from admission are 2 out of 2 sets Bacillus species. The wound culture from the right plantar ulcer, showed Klebsiella oxytoca, methicillin- susceptible Staphylococcus aureus, and group B strep. MRI of the right foot showed no evidence of osteomyelitis or septic arthritis. Findings were consistent with cellulitis. MRI of the right ankle showed no evidence of osteomyelitis. It showed some marrow edema of the right median cuneiform and the base of the first metatarsal, and focal marrow edema within the base of the right fourth metatarsal. ID was consulted. IV meropenem was recommended and plan was to complete about 4-6 weeks Course. no fever but has sweating no chills, nausea, vomiting. pain is well controlled still has urge to smoke - Review of Systems General: Denies: Fever Pulmonary: Denies: Shortness of Breath Cardiovascular: Denies: Chest Pain Gastrointestinal: Denies: Abdominal Pain Musculoskeletal: Reports: Leg Pain Neurological: Denies: Confusion - Patient Data Vitals - Most Recent: Last Vital Signs Temp 36.6 C 05/18/18 08:35 Pulse 81 05/18/18 08:35 Resp 20 05/18/18 08:35 BP 101/66 05/18/18 09:24 Pulse Ox 99 05/18/18 08:35 Weight - Most Recent: 89.721 kg I&O - Last 24 Hours: Intake & Output 05/17/18 05/18/18 05/18/18 22:59 06:59 14:59 Intake Total 100 1630 450 Balance 100 1630 450 Lab Results Last 24 Hours: Laboratory Results - last 24 hr 05/17/18 05/17/18 05/18/18 Range/Units 17:17 20:40 06:20 WBC 8.0 (5.0-10.0) 10^3/uL RBC 4.95 (4.6-6.2) 10^6/uL Hgb 14.2 (14.0-18.0) g/dL Hct 42.2 (40.0-54.0) % MCV 85.3 (80-100) fL MCH 28.7 (27.0-34.0) pg MCHC 33.6 (33.0-35.0) g/dL Plt Count 248 (150-450) 10^3/uL Neut % (Auto) 38.5 L (42.2-75.2) % Lymph % (Auto) 50.3 H (20.5-50.1) % [place] % (Auto) 6.6 (2-8) % Eos % (Auto) 4.2 H (1.0-3.0) % Baso % (Auto) 0.4 (0.0-1.0) % Sodium (135-145) mmol/L Potassium (3.6-5.0) mmol/L Chloride (101-111) mmol/L Carbon Dioxide (21.0-31.0) mmol/L Anion Gap BUN (7-18) mg/dL Creatinine (0.6-1.3) mg/dL Est Cr Clr Drug Dosing mL/min Estimated GFR (MDRD) Glucose (74-105) mg/dL POC Glucose 190 H 145 H (70-105) mg/dl Calcium (8.4-10.2) mg/dl 05/18/18 05/18/18 05/18/18 Range/Units 06:20 08:08 11:15 WBC (5.0-10.0) 10^3/uL RBC (4.6-6.2) 10^6/uL Hgb (14.0-18.0) g/dL Hct (40.0-54.0) % MCV (80-100) fL MCH (27.0-34.0) pg MCHC (33.0-35.0) g/dL Plt Count (150-450) 10^3/uL Neut % (Auto) (42.2-75.2) % Lymph % (Auto) (20.5-50.1) % [place] % (Auto) (2-8) % Eos % (Auto) (1.0-3.0) % Baso % (Auto) (0.0-1.0) % Sodium 135 (135-145) mmol/L Potassium 4.7 (3.6-5.0) mmol/L Chloride 100 L (101-111) mmol/L Carbon Dioxide 25.0 (21.0-31.0) mmol/L Anion Gap 14.7 BUN 15 (7-18) mg/dL Creatinine 0.9 (0.6-1.3) mg/dL Est Cr Clr Drug Dosing 112.57 mL/min Estimated GFR (MDRD) > 60 Glucose 140 H (74-105) mg/dL POC Glucose 127 H 77 (70-105) mg/dl Calcium 9.3 (8.4-10.2) mg/dl Med Orders - Current: Current Medications Acetaminophen (Tylenol) 650 mg PO Q4H PRN PRN Reason: Pain (mild 1-3 )/fever Last Admin: 05/17/18 19:23 Dose: 650 mg Hydrocodone Bitart/Acetaminophen ([place] 325-10 Mg) 1 tab PO Q6HR [facility] Last Admin: 05/18/18 12:34 Dose: 1 tab Al Hydroxide/Mg Hydroxide (Mag-Al Plus) 30 ml PO Q4H PRN PRN Reason: Dyspepsia Aspirin (Aspirin) 81 mg CHEW DAILY@0800 [facility] Last Admin: 05/18/18 09:24 Dose: 81 mg Bisacodyl (Dulcolax) 10 mg RECTAL DAILY PRN PRN Reason: Constipation Calcium Carbonate/Glycine (Tums) 500 mg PO Q4H PRN PRN Reason: Dyspepsia Docusate Sodium (Colace) 100 mg PO DAILY PRN PRN Reason: Constipation Heparin Sodium (Porcine) (Heparin Sodium) 5,000 units SUBCUT Q12H [facility] Last Admin: 05/18/18 09:27 Dose: 5,000 units Piperacillin Sod/Tazobactam (Sod 3.375 gm/ Sodium Chloride) 100 mls @ 200 mls/ hr IV Q8H [facility] Last Infusion: 05/18/18 10:10 Dose: Infused Ibuprofen (Motrin) 400 mg PO Q6H PRN PRN Reason: moderate pain Last Admin: 05/15/18 15:55 Dose: 400 mg Insulin Glargine (Lantus) 40 unit SUBCUT QAM [facility] Last Admin: 05/18/18 09:25 Dose: 40 units Insulin Human Lispro (Humalog) 5 unit SUBCUT TIDMEALS [facility] Last Admin: 05/18/18 12:34 Dose: Not Given Lisinopril (Prinivil) 10 mg PO DAILY [facility] Last Admin: 05/18/18 09:24 Dose: 10 mg Magnesium Hydroxide (Milk Of Magnesia) 30 ml PO BID PRN PRN Reason: Constipation Miscellaneous Information (Check Patch) 0 ea TRDERM BEDTIME [facility] Nicotine (Habitrol) 21 mg TRDERM DAILY [facility] Pregabalin (Lyrica) 100 mg PO TID [facility] Last Admin: 05/18/18 09:24 Dose: 100 mg Quetiapine Fumarate (Seroquel) 25 mg PO BEDTIME PRN PRN Reason: for sleep Last Admin: 05/18/18 00:32 Dose: 25 mg Sodium Chloride (Saline Flush) 10 ml FLUSH ASDIRECTED PRN PRN Reason: Keep Vein Open Last Admin: 05/17/18 16:56 Dose: 10 ml Venlafaxine HCl (Effexor Xr) 75 mg PO DAILY [facility] Last Admin: 05/18/18 09:25 Dose: 75 mg Venlafaxine HCl (Venlafaxine Hcl Er) 150 mg PO DAILY [facility] Last Admin: 05/18/18 09:24 Dose: 150 mg Zolpidem Tartrate (Ambien) 5 mg PO BEDTIME PRN PRN Reason: insomnia Last Admin: 05/13/18 22:58 Dose: 5 mg Discontinued Medications Hydrocodone Bitart/Acetaminophen ([place] 325-10 Mg) 1 tab PO ONETIME ONE Stop: 05/08/18 14:40 Last Admin: 05/08/18 15:22 Dose: 1 tab Meropenem 500 mg/ Sodium (Chloride) 100 mls @ 200 mls/hr IV Q8HR [facility] Stop: 06/03/18 16:01 Last Admin: 05/15/18 14:46 Dose: 200 mls/hr Influenza Virus Vaccine (Pharmacy To Dose - Influenza Vaccine) 1 each IM ONETIME ONE Stop: 05/08/18 13:45 Influenza Virus Vaccine (Fluzone Quad [id number] Syringe) 60 mcg IM .ONCE ONE Stop: 05/08/18 17:31 Last Admin: 05/08/18 17:51 Dose: Not Given Insulin Glargine (Lantus) 40 unit SUBCUT ONETIME ONE Stop: 05/09/18 11:48 Last Admin: 05/09/18 12:21 Dose: 40 units Insulin Human Lispro (Humalog) 20 unit SUBCUT BID@0800,1200 [facility] Last Admin: 05/09/18 08:10 Dose: 20 units Nicotine (Habitrol) 14 mg TOP DAILY [facility] Last Admin: 05/11/18 08:42 Dose: 14 mg Nicotine 14 Mg/24 Hr (Patch) 14 each TOP DAILY [facility] Last Admin: 05/18/18 09:27 Dose: 14 each - Exam General: Alert, Oriented Neck: Supple Lungs: Clear to Auscultation, Normal Respiratory Effort Cardiovascular: Regular Rate, Regular Rhythm GI/Abdominal Exam: Normal Bowel Sounds, Soft, Non-Tender Extremities: No Pedal Edema, Other (foot ulcer and wound without erythema) - Problem List & Annotations (1) Cellulitis SNOMED Code(s): 873980703 Code(s): L03.90 - CELLULITIS, UNSPECIFIED Status: Acute Current Visit: No Qualifiers: Site of cellulitis: extremity Site of cellulitis of extremity: lower extremity Laterality: right Qualified Code(s): L03.115 - Cellulitis of right lower limb - Problem List Review Problem List Initiated/Reviewed/Updated: Yes - My Orders Last 24 Hours: My Active Orders 05/18/18 12:30 Nicotine [Habitrol] 21 mg TRDERM DAILY 05/18/18 21:00 Check Patch 0 ea TRDERM BEDTIME - Plan Plan:: Right foot diabetic infection, chronic ulcer on the plantar aspect of the right foot at the level of the head of the fourth metatarsal. Cultures from this were Klebsiella oxytoca, group B strep, and methicillin- susceptible Staphylococcus aureus and strep mitis/oralis No evidence of Osteo /abscess on MRI Gram-positive bacillus bacteremia, could be contamination but as it is 2/2 could be pathogen Echo neg for vegetation treat with Meropenem. Plan for about 4-6 weeks of abx History of second and third toe amputations along with amputation of the distal metatarsals of the right foot in March 2017. Open reduction and internal fixation of the right ankle for a trimalleolar fracture in 2004. Hypertension Continue Lisinopril Diabetes SSI plus Levemir POC glucose 4x daily Hypoglycemic protocol smoking cessation was encouraged increase nicotine patch Diabetic diet Full code
[2018-05-18] MEDS: Nicotine 21 MG/24 Hr Patch TRDERM SCH (13:56)
[2018-05-18] MEDS: Check Patch TRDERM SCH (22:30)
[2018-05-19] MEDS: Piperacillin/Tazobactam 3.375 GM in Sodium Chloride 0.9% 100 ML IV SCH ×3 (00:29→17:21)
[2018-05-19] MEDS: QUEtiapine 25 MG Tab PO PRN (00:29)
[2018-05-19] MEDS: Acetaminophen/HYDROcodone 325-10 MG Tab PO SCH ×4 (00:30→17:20)
[2018-05-19] MEDS: Nicotine 21 MG/24 Hr Patch TRDERM SCH (09:14)
[2018-05-19] MEDS: Insulin Glarg,Human.Rec.Analog 100 UNIT/ML ML SUBCUT SCH (09:14)
[2018-05-19] MEDS: Pregabalin 50 MG Cap PO SCH ×3 (09:15→20:59)
[2018-05-19] MEDS: Insulin Lispro 100 Units/ML 3 ML Vial SUBCUT SCH ×3 (09:15→17:20)
[2018-05-19] MEDS: Venlafaxine 150 MG CAP.ER PO SCH (09:16)
[2018-05-19] MEDS: Lisinopril 10 MG Tab PO SCH (09:16)
[2018-05-19] MEDS: Heparin Sodium 5,000 Units/ML Vial SUBCUT SCH ×2 (09:16→21:05)
[2018-05-19] MEDS: Venlafaxine 37.5 MG Cap.ER PO SCH (09:16)
[2018-05-19] MEDS: Aspirin 81 MG Tab.Chew CHEW SCH (09:16)
[2018-05-19] MEDS: Ibuprofen 400 MG Tab PO PRN ×2 (09:17→21:00)
[2018-05-19] MEDS: Check Patch TRDERM SCH (21:07)
[2018-05-20] MEDS: Acetaminophen/HYDROcodone 325-10 MG Tab PO SCH ×6 (00:37→23:50)
[2018-05-20] MEDS: Sodium Chloride 0.9% 10 ML Syringe FLUSH PRN ×2 (00:39→01:16)
[2018-05-20] MEDS: Piperacillin/Tazobactam 3.375 GM in Sodium Chloride 0.9% 100 ML IV SCH ×4 (00:40→23:59)
[2018-05-20] MEDS: Pregabalin 50 MG Cap PO SCH ×3 (08:10→22:06)
[2018-05-20] MEDS: Aspirin 81 MG Tab.Chew CHEW SCH (08:10)
[2018-05-20] MEDS: Lisinopril 10 MG Tab PO SCH (08:10)
[2018-05-20] MEDS: Venlafaxine 150 MG CAP.ER PO SCH (08:10)
[2018-05-20] MEDS: Heparin Sodium 5,000 Units/ML Vial SUBCUT SCH ×2 (08:13→22:07)
[2018-05-20] MEDS: Venlafaxine 37.5 MG Cap.ER PO SCH (08:15)
[2018-05-20] MEDS: Insulin Lispro 100 Units/ML 3 ML Vial SUBCUT SCH ×3 (08:34→18:02)
[2018-05-20] MEDS: Insulin Glarg,Human.Rec.Analog 100 UNIT/ML ML SUBCUT SCH (08:35)
[2018-05-20] MEDS: Nicotine 21 MG/24 Hr Patch TRDERM SCH (09:08)
[2018-05-20] MEDS: Check Patch TRDERM SCH (22:07)
[2018-05-21] MEDS: Acetaminophen/HYDROcodone 325-10 MG Tab PO SCH ×3 (05:31→17:15)
[2018-05-21] MEDS: Sodium Chloride 0.9% 10 ML Syringe FLUSH PRN (09:16)
[2018-05-21] MEDS: Piperacillin/Tazobactam 3.375 GM in Sodium Chloride 0.9% 100 ML IV SCH ×2 (09:16→17:46)
[2018-05-21] MEDS: Insulin Glarg,Human.Rec.Analog 100 UNIT/ML ML SUBCUT SCH (09:24)
[2018-05-21] MEDS: Heparin Sodium 5,000 Units/ML Vial SUBCUT SCH ×2 (09:28→21:44)
[2018-05-21] MEDS: Acetaminophen 325 MG Tab PO PRN (09:31)
[2018-05-21] MEDS: Venlafaxine 150 MG CAP.ER PO SCH (09:33)
[2018-05-21] MEDS: Pregabalin 50 MG Cap PO SCH ×3 (09:34→21:43)
[2018-05-21] MEDS: Insulin Lispro 100 Units/ML 3 ML Vial SUBCUT SCH ×3 (09:36→17:14)
[2018-05-21] MEDS: Aspirin 81 MG Tab.Chew CHEW SCH (09:36)
[2018-05-21] MEDS: Venlafaxine 37.5 MG Cap.ER PO SCH (09:36)
[2018-05-21] MEDS: Nicotine 21 MG/24 Hr Patch TRDERM SCH (09:37)
[2018-05-21] MEDS: Lisinopril 10 MG Tab PO SCH (09:37)
[2018-05-21] MEDS: Check Patch TRDERM SCH (21:43)
[2018-05-21] MEDS: Gabapentin 100 MG Cap PO SCH (22:32)
[2018-05-22] MEDS: Acetaminophen/HYDROcodone 325-10 MG Tab PO SCH ×4 (00:22→17:24)
[2018-05-22] MEDS: Piperacillin/Tazobactam 3.375 GM in Sodium Chloride 0.9% 100 ML IV SCH ×3 (00:23→17:24)
[2018-05-22] MEDS: QUEtiapine 25 MG Tab PO PRN (00:23)
[2018-05-22 07:49] LABS: ANION GAP 13.1; CHLORIDE,CL 104 mmol/L (101-111); SODIUM,NA 138 mmol/L (135-145)
[2018-05-22] MEDS: Venlafaxine 37.5 MG Cap.ER PO SCH (08:38)
[2018-05-22] MEDS: Aspirin 81 MG Tab.Chew CHEW SCH (08:38)
[2018-05-22] MEDS: Heparin Sodium 5,000 Units/ML Vial SUBCUT SCH ×2 (08:39→22:07)
[2018-05-22] MEDS: Venlafaxine 150 MG CAP.ER PO SCH (08:39)
[2018-05-22] MEDS: Insulin Glarg,Human.Rec.Analog 100 UNIT/ML ML SUBCUT SCH (08:39)
[2018-05-22] MEDS: Nicotine 21 MG/24 Hr Patch TRDERM SCH (08:39)
[2018-05-22] MEDS: Pregabalin 50 MG Cap PO SCH ×3 (08:39→22:03)
[2018-05-22] MEDS: Insulin Lispro 100 Units/ML 3 ML Vial SUBCUT SCH ×3 (08:40→17:24)
[2018-05-22] MEDS: Lisinopril 10 MG Tab PO SCH (08:43)
[2018-05-22] MEDS: Gabapentin 100 MG Cap PO SCH (22:02)
[2018-05-22] MEDS: Check Patch TRDERM SCH (22:05)
[2018-05-22] MEDS: Sodium Chloride 0.9% 10 ML Syringe FLUSH PRN (22:10)
[2018-05-23] MEDS: Acetaminophen/HYDROcodone 325-10 MG Tab PO SCH ×4 (00:12→17:32)
[2018-05-23] MEDS: QUEtiapine 25 MG Tab PO PRN (00:14)
[2018-05-23] MEDS: Sodium Chloride 0.9% 10 ML Syringe FLUSH PRN ×4 (00:23→17:33)
[2018-05-23] MEDS: Piperacillin/Tazobactam 3.375 GM in Sodium Chloride 0.9% 100 ML IV SCH ×3 (00:27→17:33)
[2018-05-23] MEDS: Pregabalin 50 MG Cap PO SCH ×3 (09:04→21:13)
[2018-05-23] MEDS: Lisinopril 10 MG Tab PO SCH (09:04)
[2018-05-23] MEDS: Venlafaxine 150 MG CAP.ER PO SCH (09:04)
[2018-05-23] MEDS: Venlafaxine 37.5 MG Cap.ER PO SCH (09:05)
[2018-05-23] MEDS: Insulin Lispro 100 Units/ML 3 ML Vial SUBCUT SCH ×3 (09:05→17:31)
[2018-05-23] MEDS: Heparin Sodium 5,000 Units/ML Vial SUBCUT SCH ×2 (09:05→21:12)
[2018-05-23] MEDS: Aspirin 81 MG Tab.Chew CHEW SCH (09:05)
[2018-05-23] MEDS: Insulin Glarg,Human.Rec.Analog 100 UNIT/ML ML SUBCUT SCH (09:06)
[2018-05-23] MEDS: Nicotine 21 MG/24 Hr Patch TRDERM SCH (09:07)
[2018-05-23] MEDS ORDERED: LORazepam 0.5 MG Tab PO PRN (09:56)
[2018-05-23] MEDS: Gabapentin 100 MG Cap PO SCH (21:13)
[2018-05-23] MEDS: Check Patch TRDERM SCH (21:13)
[2018-05-24] MEDS: Piperacillin/Tazobactam 3.375 GM in Sodium Chloride 0.9% 100 ML IV SCH ×3 (00:13→17:43)
[2018-05-24] MEDS: Acetaminophen/HYDROcodone 325-10 MG Tab PO SCH ×4 (00:14→17:42)
[2018-05-24] MEDS: QUEtiapine 25 MG Tab PO PRN (00:15)
[2018-05-24] MEDS: Lisinopril 10 MG Tab PO SCH (08:49)
[2018-05-24] MEDS: Aspirin 81 MG Tab.Chew CHEW SCH (08:49)
[2018-05-24] MEDS: Pregabalin 50 MG Cap PO SCH ×3 (08:49→21:17)
[2018-05-24] MEDS: Venlafaxine 150 MG CAP.ER PO SCH (08:49)
[2018-05-24] MEDS: Heparin Sodium 5,000 Units/ML Vial SUBCUT SCH ×2 (08:49→21:16)
[2018-05-24] MEDS: Ibuprofen 400 MG Tab PO PRN (08:49)
[2018-05-24] MEDS: Venlafaxine 37.5 MG Cap.ER PO SCH (08:49)
[2018-05-24] MEDS: Insulin Glarg,Human.Rec.Analog 100 UNIT/ML ML SUBCUT SCH (08:50)
[2018-05-24] MEDS: Insulin Lispro 100 Units/ML 3 ML Vial SUBCUT SCH ×3 (08:50→17:42)
[2018-05-24] MEDS: Nicotine 21 MG/24 Hr Patch TRDERM SCH (08:51)
[2018-05-24] MEDS: Check Patch TRDERM SCH (20:14)
[2018-05-24] MEDS: Gabapentin 100 MG Cap PO SCH (21:17)
[2018-05-25] MEDS: Acetaminophen/HYDROcodone 325-10 MG Tab PO SCH ×4 (00:21→16:59)
[2018-05-25] MEDS: Piperacillin/Tazobactam 3.375 GM in Sodium Chloride 0.9% 100 ML IV SCH ×3 (00:22→16:07)
[2018-05-25] MEDS: Aspirin 81 MG Tab.Chew CHEW SCH (08:17)
[2018-05-25] MEDS: Venlafaxine 150 MG CAP.ER PO SCH (08:17)
[2018-05-25] MEDS: Lisinopril 10 MG Tab PO SCH (08:17)
[2018-05-25] MEDS: Pregabalin 50 MG Cap PO SCH ×3 (08:18→21:45)
[2018-05-25] MEDS: Venlafaxine 37.5 MG Cap.ER PO SCH (08:18)
[2018-05-25] MEDS: Heparin Sodium 5,000 Units/ML Vial SUBCUT SCH ×2 (08:19→21:47)
[2018-05-25] MEDS: Insulin Glarg,Human.Rec.Analog 100 UNIT/ML ML SUBCUT SCH (08:19)
[2018-05-25] MEDS: Insulin Lispro 100 Units/ML 3 ML Vial SUBCUT SCH ×3 (08:20→16:59)
[2018-05-25] MEDS: Sodium Chloride 0.9% 10 ML Syringe FLUSH PRN ×2 (10:01→16:08)
--- NOTE | 2018-05-25 11:01 | PCM.PN ---
- General Info Date of Service: 05/25/18 Admission Dx/Problem (Free Text): Admission Diagnosis/Problem Admission Diagnosis/Problem Foot infection Subjective Update: Mr. Echevarria is a 47-year-old male with past medical history significant for hypertension, type 2 diabetes, and hepatitis C. He also has h/o right second and third toe amputations and amputation of the right third and second metatarsals partially around March 2017. He was admitted at [facility] and managed for cellulitis and wound of the right foot and also bacteremia. His blood cultures from admission are 2 out of 2 sets Bacillus species. The wound culture from the right plantar ulcer, showed Klebsiella oxytoca, methicillin- susceptible Staphylococcus aureus, and group B strep. MRI of the right foot showed no evidence of osteomyelitis or septic arthritis. Findings were consistent with cellulitis. MRI of the right ankle showed no evidence of osteomyelitis. It showed some marrow edema of the right median cuneiform and the base of the first metatarsal, and focal marrow edema within the base of the right fourth metatarsal. ID was consulted. IV meropenem was recommended and plan was to complete about 4-6 weeks Course. no fever no chills, nausea, vomiting. pain is well controlled no new complaints today - Review of Systems General: Reports: No Symptoms HEENT: Reports: No Symptoms Pulmonary: Reports: No Symptoms Cardiovascular: Reports: No Symptoms Gastrointestinal: Reports: No Symptoms - Patient Data Vitals - Most Recent: Last Vital Signs Temp 36.6 C 05/25/18 08:00 Pulse 96 05/25/18 08:00 Resp 16 05/25/18 08:00 BP 120/84 05/25/18 08:17 Pulse Ox 100 05/25/18 08:00 Weight - Most Recent: 89.902 kg I&O - Last 24 Hours: Intake & Output 05/24/18 05/25/18 05/25/18 22:59 06:59 14:59 Intake Total 350 894 Balance 350 894 Lab Results Last 24 Hours: Laboratory Results - last 24 hr 05/24/18 05/24/18 05/24/18 Range/Units 11:46 16:59 21:14 POC Glucose 110 H 260 H 199 H (70-105) mg/dl 05/25/18 Range/Units 07:57 POC Glucose 152 H (70-105) mg/dl Med Orders - Current: Current Medications Acetaminophen (Tylenol) 650 mg PO Q4H PRN PRN Reason: Pain (mild 1-3 )/fever Last Admin: 05/21/18 09:31 Dose: 650 mg Hydrocodone Bitart/Acetaminophen ([place] 325-10 Mg) 1 tab PO Q6HR [facility] Last Admin: 05/25/18 05:50 Dose: 1 tab Al Hydroxide/Mg Hydroxide (Mag-Al Plus) 30 ml PO Q4H PRN PRN Reason: Dyspepsia Aspirin (Aspirin) 81 mg CHEW DAILY@0800 [facility] Last Admin: 05/25/18 08:17 Dose: 81 mg Bisacodyl (Dulcolax) 10 mg RECTAL DAILY PRN PRN Reason: Constipation Calcium Carbonate/Glycine (Tums) 500 mg PO Q4H PRN PRN Reason: Dyspepsia Docusate Sodium (Colace) 100 mg PO DAILY PRN PRN Reason: Constipation Gabapentin (Neurontin) 200 mg PO BEDTIME [facility] Last Admin: 05/24/18 21:17 Dose: 200 mg Heparin Sodium (Porcine) (Heparin Sodium) 5,000 units SUBCUT Q12H [facility] Last Admin: 05/25/18 08:19 Dose: 5,000 units Piperacillin Sod/Tazobactam (Sod 3.375 gm/ Sodium Chloride) 100 mls @ 200 mls/ hr IV Q8H [facility] Last Infusion: 05/25/18 10:48 Dose: Infused Ibuprofen (Motrin) 400 mg PO Q6H PRN PRN Reason: moderate pain Last Admin: 05/24/18 08:49 Dose: 400 mg Insulin Glargine (Lantus) 40 unit SUBCUT QAM [facility] Last Admin: 05/25/18 08:19 Dose: 40 units Insulin Human Lispro (Humalog) 5 unit SUBCUT TIDMEALS [facility] Last Admin: 05/25/18 08:20 Dose: 5 units Lisinopril (Prinivil) 10 mg PO DAILY [facility] Last Admin: 05/25/18 08:17 Dose: 10 mg Lorazepam (Ativan) 0.5 mg PO Q8H PRN PRN Reason: Anxiety Magnesium Hydroxide (Milk Of Magnesia) 30 ml PO BID PRN PRN Reason: Constipation Miscellaneous Information (Check Patch) 0 ea TRDERM BEDTIME [facility] Last Admin: 05/24/18 20:14 Dose: Not Given Nicotine (Habitrol) 21 mg TRDERM DAILY [facility] Last Admin: 05/24/18 08:51 Dose: Not Given Pregabalin (Lyrica) 100 mg PO TID [facility] Last Admin: 05/25/18 08:18 Dose: 100 mg Quetiapine Fumarate (Seroquel) 25 mg PO BEDTIME PRN PRN Reason: for sleep Last Admin: 05/24/18 00:15 Dose: 25 mg Sodium Chloride (Saline Flush) 10 ml FLUSH ASDIRECTED PRN PRN Reason: Keep Vein Open Last Admin: 05/25/18 10:01 Dose: 10 ml Venlafaxine HCl (Effexor Xr) 75 mg PO DAILY [facility] Last Admin: 05/25/18 08:18 Dose: 75 mg Venlafaxine HCl (Venlafaxine Hcl Er) 150 mg PO DAILY [facility] Last Admin: 05/25/18 08:17 Dose: 150 mg Zolpidem Tartrate (Ambien) 5 mg PO BEDTIME PRN PRN Reason: insomnia Last Admin: 05/13/18 22:58 Dose: 5 mg Discontinued Medications Hydrocodone Bitart/Acetaminophen ([place] 325-10 Mg) 1 tab PO ONETIME ONE Stop: 05/08/18 14:40 Last Admin: 05/08/18 15:22 Dose: 1 tab Meropenem 500 mg/ Sodium (Chloride) 100 mls @ 200 mls/hr IV Q8HR [facility] Stop: 06/03/18 16:01 Last Admin: 05/15/18 14:46 Dose: 200 mls/hr Influenza Virus Vaccine (Pharmacy To Dose - Influenza Vaccine) 1 each IM ONETIME ONE Stop: 05/08/18 13:45 Influenza Virus Vaccine (Fluzone Quad [id number] Syringe) 60 mcg IM .ONCE ONE Stop: 05/08/18 17:31 Last Admin: 05/08/18 17:51 Dose: Not Given Insulin Glargine (Lantus) 40 unit SUBCUT ONETIME ONE Stop: 05/09/18 11:48 Last Admin: 05/09/18 12:21 Dose: 40 units Insulin Human Lispro (Humalog) 20 unit SUBCUT BID@0800,1200 [facility] Last Admin: 05/09/18 08:10 Dose: 20 units Nicotine (Habitrol) 14 mg TOP DAILY [facility] Last Admin: 05/11/18 08:42 Dose: 14 mg Nicotine 14 Mg/24 Hr (Patch) 14 each TOP DAILY [facility] Last Admin: 05/18/18 09:27 Dose: 14 each - Exam General: Alert, Oriented HEENT: Pupils Equal Neck: Supple Lungs: Clear to Auscultation Cardiovascular: Regular Rate GI/Abdominal Exam: Normal Bowel Sounds - Problem List Review Problem List Initiated/Reviewed/Updated: Yes - Plan Plan:: Right foot diabetic infection, chronic ulcer on the plantar aspect of the right foot at the level of the head of the fourth metatarsal. Cultures from this were Klebsiella oxytoca, group B strep, and methicillin- susceptible Staphylococcus aureus and strep mitis/oralis No evidence of Osteo /abscess on MRI Gram-positive bacillus bacteremia, could be contamination but as it is 2/2 could be pathogen Echo neg for vegetation treat with Meropenem. Plan for about 4-6 weeks of abx History of second and third toe amputations along with amputation of the distal metatarsals of the right foot in March 2017. Open reduction and internal fixation of the right ankle for a trimalleolar fracture in 2004. Hypertension Continue Lisinopril Diabetes SSI plus Levemir POC glucose 4x daily Hypoglycemic protocol smoking cessation was encouraged increase nicotine patch Diabetic diet Full code
[2018-05-25] MEDS: Nicotine 21 MG/24 Hr Patch TRDERM SCH (11:15)
[2018-05-25] MEDS: Gabapentin 100 MG Cap PO SCH (21:45)
[2018-05-25] MEDS: Check Patch TRDERM SCH (21:46)
[2018-05-26] MEDS: Acetaminophen/HYDROcodone 325-10 MG Tab PO SCH ×4 (00:32→17:48)
[2018-05-26] MEDS: Piperacillin/Tazobactam 3.375 GM in Sodium Chloride 0.9% 100 ML IV SCH ×3 (00:33→17:49)
[2018-05-26] MEDS: Insulin Lispro 100 Units/ML 3 ML Vial SUBCUT SCH ×3 (08:43→17:49)
[2018-05-26] MEDS: Insulin Glarg,Human.Rec.Analog 100 UNIT/ML ML SUBCUT SCH (08:44)
[2018-05-26] MEDS: Lisinopril 10 MG Tab PO SCH (08:45)
[2018-05-26] MEDS: Aspirin 81 MG Tab.Chew CHEW SCH (08:45)
[2018-05-26] MEDS: Venlafaxine 150 MG CAP.ER PO SCH (08:45)
[2018-05-26] MEDS: Heparin Sodium 5,000 Units/ML Vial SUBCUT SCH ×2 (08:45→21:29)
[2018-05-26] MEDS: Pregabalin 50 MG Cap PO SCH ×3 (08:45→21:26)
[2018-05-26] MEDS: Venlafaxine 37.5 MG Cap.ER PO SCH (08:46)
[2018-05-26] MEDS: Nicotine 21 MG/24 Hr Patch TRDERM SCH (08:46)
[2018-05-26] MEDS: Ibuprofen 400 MG Tab PO PRN (08:46)
[2018-05-26] MEDS: Sodium Chloride 0.9% 10 ML Syringe FLUSH PRN ×2 (09:29→21:26)
[2018-05-26] MEDS: Check Patch TRDERM SCH (21:25)
[2018-05-26] MEDS: Gabapentin 100 MG Cap PO SCH (21:26)
[2018-05-26] MEDS: QUEtiapine 25 MG Tab PO PRN (21:43)
[2018-05-27] MEDS: Acetaminophen/HYDROcodone 325-10 MG Tab PO SCH ×4 (00:28→17:54)
[2018-05-27] MEDS: Sodium Chloride 0.9% 10 ML Syringe FLUSH PRN ×2 (00:32→01:13)
[2018-05-27] MEDS: Piperacillin/Tazobactam 3.375 GM in Sodium Chloride 0.9% 100 ML IV SCH ×3 (00:34→17:54)
[2018-05-27] MEDS: Aspirin 81 MG Tab.Chew CHEW SCH (08:29)
[2018-05-27] MEDS: Insulin Lispro 100 Units/ML 3 ML Vial SUBCUT SCH ×3 (08:30→17:54)
[2018-05-27] MEDS: Venlafaxine 37.5 MG Cap.ER PO SCH (08:31)
[2018-05-27] MEDS: Venlafaxine 150 MG CAP.ER PO SCH (08:31)
[2018-05-27] MEDS: Lisinopril 10 MG Tab PO SCH (08:32)
[2018-05-27] MEDS: Nicotine 21 MG/24 Hr Patch TRDERM SCH (08:32)
[2018-05-27] MEDS: Pregabalin 50 MG Cap PO SCH ×3 (08:32→22:09)
[2018-05-27] MEDS: Insulin Glarg,Human.Rec.Analog 100 UNIT/ML ML SUBCUT SCH (08:33)
[2018-05-27] MEDS: Heparin Sodium 5,000 Units/ML Vial SUBCUT SCH ×2 (08:35→22:10)
[2018-05-27] MEDS: Gabapentin 100 MG Cap PO SCH (22:00)
[2018-05-27] MEDS: Check Patch TRDERM SCH (22:11)
[2018-05-28] MEDS: Acetaminophen/HYDROcodone 325-10 MG Tab PO SCH ×4 (00:48→17:40)
[2018-05-28] MEDS: Piperacillin/Tazobactam 3.375 GM in Sodium Chloride 0.9% 100 ML IV SCH ×3 (00:49→17:41)
[2018-05-28] MEDS: QUEtiapine 25 MG Tab PO PRN (00:57)
[2018-05-28] MEDS: Venlafaxine 150 MG CAP.ER PO SCH (08:23)
[2018-05-28] MEDS: Pregabalin 50 MG Cap PO SCH ×3 (08:23→22:03)
[2018-05-28] MEDS: Venlafaxine 37.5 MG Cap.ER PO SCH (08:23)
[2018-05-28] MEDS: Lisinopril 10 MG Tab PO SCH (08:23)
[2018-05-28] MEDS: Insulin Glarg,Human.Rec.Analog 100 UNIT/ML ML SUBCUT SCH (08:24)
[2018-05-28] MEDS: Aspirin 81 MG Tab.Chew CHEW SCH (08:24)
[2018-05-28] MEDS: Insulin Lispro 100 Units/ML 3 ML Vial SUBCUT SCH ×3 (08:24→17:41)
[2018-05-28] MEDS: Nicotine 21 MG/24 Hr Patch TRDERM SCH (08:25)
[2018-05-28] MEDS: Heparin Sodium 5,000 Units/ML Vial SUBCUT SCH ×2 (08:25→22:04)
[2018-05-28] MEDS ORDERED: Piperacillin/Tazobactam 3.375 GM in Sodium Chloride 0.9% 50 ML IV ONE (09:00)
[2018-05-28] MEDS: Sodium Chloride 0.9% 10 ML Syringe FLUSH PRN (09:01)
[2018-05-28] MEDS: Check Patch TRDERM SCH (22:02)
[2018-05-28] MEDS: Gabapentin 100 MG Cap PO SCH (22:03)
[2018-05-28] MEDS: Ibuprofen 400 MG Tab PO PRN (22:04)
[2018-05-29] MEDS: Piperacillin/Tazobactam 3.375 GM in Sodium Chloride 0.9% 100 ML IV SCH ×3 (00:21→16:20)
[2018-05-29] MEDS: QUEtiapine 25 MG Tab PO PRN (00:22)
[2018-05-29] MEDS: Acetaminophen/HYDROcodone 325-10 MG Tab PO SCH ×3 (00:22→13:02)
[2018-05-29] MEDS: Zolpidem 5 MG Tab PO PRN (00:23)
[2018-05-29] MEDS: Insulin Glarg,Human.Rec.Analog 100 UNIT/ML ML SUBCUT SCH (08:56)
[2018-05-29] MEDS: Pregabalin 50 MG Cap PO SCH ×3 (08:57→22:05)
[2018-05-29] MEDS: Insulin Lispro 100 Units/ML 3 ML Vial SUBCUT SCH ×3 (08:57→16:59)
[2018-05-29] MEDS: Lisinopril 10 MG Tab PO SCH (08:58)
[2018-05-29] MEDS: Venlafaxine 150 MG CAP.ER PO SCH (08:58)
[2018-05-29] MEDS: Venlafaxine 37.5 MG Cap.ER PO SCH (08:58)
[2018-05-29] MEDS: Heparin Sodium 5,000 Units/ML Vial SUBCUT SCH ×2 (08:59→22:11)
[2018-05-29] MEDS: Aspirin 81 MG Tab.Chew CHEW SCH (09:06)
[2018-05-29] MEDS: Nicotine 21 MG/24 Hr Patch TRDERM SCH (09:07)
--- NOTE | 2018-05-29 10:05 | PCM.PN ---
- General Info Date of Service: 05/29/18 Admission Dx/Problem (Free Text): Admission Diagnosis/Problem Admission Diagnosis/Problem Foot infection Subjective Update: Mr. Echevarria is a 47-year-old male with past medical history significant for hypertension, type 2 diabetes, and hepatitis C. He also has h/o right second and third toe amputations and amputation of the right third and second metatarsals partially around March 2017. He was admitted at [facility] and managed for cellulitis and wound of the right foot and also bacteremia. His blood cultures from admission are 2 out of 2 sets Bacillus species. The wound culture from the right plantar ulcer, showed Klebsiella oxytoca, methicillin- susceptible Staphylococcus aureus, and group B strep. MRI of the right foot showed no evidence of osteomyelitis or septic arthritis. Findings were consistent with cellulitis. MRI of the right ankle showed no evidence of osteomyelitis. It showed some marrow edema of the right median cuneiform and the base of the first metatarsal, and focal marrow edema within the base of the right fourth metatarsal. ID was consulted. IV Zosyn was recommended and plan was to complete about 4-6 weeks Course. Patient seen and examined today. No acute overnight event. He denies fever, chills, nausea, vomiting. Pain is well controlled Functional Status: Reports: Pain Controlled - Review of Systems General: Reports: No Symptoms HEENT: Reports: No Symptoms Pulmonary: Reports: No Symptoms Cardiovascular: Reports: No Symptoms Gastrointestinal: Reports: No Symptoms Genitourinary: Reports: No Symptoms Musculoskeletal: Reports: No Symptoms Skin: Reports: No Symptoms Neurological: Reports: No Symptoms Psychiatric: Reports: No Symptoms - Patient Data Vitals - Most Recent: Last Vital Signs Temp 98.3 F 05/29/18 07:49 Pulse 83 05/29/18 07:49 Resp 18 05/29/18 07:49 BP 120/85 05/29/18 08:58 Pulse Ox 100 05/29/18 07:49 Weight - Most Recent: 199 lb 4.8 oz I&O - Last 24 Hours: Intake & Output 05/28/18 05/29/18 05/29/18 22:59 06:59 14:59 Intake Total 465 105 560 Balance 465 105 560 Lab Results Last 24 Hours: Laboratory Results - last 24 hr 05/28/18 05/28/18 05/28/18 Range/Units 11:08 17:06 21:01 WBC (5.0-10.0) 10^3/uL RBC (4.6-6.2) 10^6/uL Hgb (14.0-18.0) g/dL Hct (40.0-54.0) % MCV (80-100) fL MCH (27.0-34.0) pg MCHC (33.0-35.0) g/dL Plt Count (150-450) 10^3/uL Neut % (Auto) (42.2-75.2) % Lymph % (Auto) (20.5-50.1) % [place] % (Auto) (2-8) % Eos % (Auto) (1.0-3.0) % Baso % (Auto) (0.0-1.0) % ESR (0-15) mm/hr Creatinine (0.6-1.3) mg/dL Est Cr Clr Drug Dosing mL/min Estimated GFR (MDRD) POC Glucose 218 H 118 H 125 H (70-105) mg/dl ALT (10-60) IU/L C-Reactive Protein (0.0-1.3) mg/dL 05/29/18 05/29/18 05/29/18 Range/Units 06:15 06:15 06:15 WBC 7.6 (5.0-10.0) 10^3/uL RBC 4.41 L (4.6-6.2) 10^6/uL Hgb 12.7 L (14.0-18.0) g/dL Hct 37.9 L (40.0-54.0) % MCV 85.9 (80-100) fL MCH 28.8 (27.0-34.0) pg MCHC 33.5 (33.0-35.0) g/dL Plt Count 200 (150-450) 10^3/uL Neut % (Auto) 44.3 (42.2-75.2) % Lymph % (Auto) 45.3 (20.5-50.1) % [place] % (Auto) 6.8 (2-8) % Eos % (Auto) 3.3 H (1.0-3.0) % Baso % (Auto) 0.3 (0.0-1.0) % ESR 8 (0-15) mm/hr Creatinine 0.8 (0.6-1.3) mg/dL Est Cr Clr Drug Dosing 126.64 mL/min Estimated GFR (MDRD) > 60 POC Glucose (70-105) mg/dl ALT 77 H (10-60) IU/L C-Reactive Protein 0.8 (0.0-1.3) mg/dL 05/29/18 Range/Units 07:32 WBC (5.0-10.0) 10^3/uL RBC (4.6-6.2) 10^6/uL Hgb (14.0-18.0) g/dL Hct (40.0-54.0) % MCV (80-100) fL MCH (27.0-34.0) pg MCHC (33.0-35.0) g/dL Plt Count (150-450) 10^3/uL Neut % (Auto) (42.2-75.2) % Lymph % (Auto) (20.5-50.1) % [place] % (Auto) (2-8) % Eos % (Auto) (1.0-3.0) % Baso % (Auto) (0.0-1.0) % ESR (0-15) mm/hr Creatinine (0.6-1.3) mg/dL Est Cr Clr Drug Dosing mL/min Estimated GFR (MDRD) POC Glucose 109 H (70-105) mg/dl ALT (10-60) IU/L C-Reactive Protein (0.0-1.3) mg/dL Med Orders - Current: Current Medications Acetaminophen (Tylenol) 650 mg PO Q4H PRN PRN Reason: Pain (mild 1-3 )/fever Last Admin: 05/21/18 09:31 Dose: 650 mg Hydrocodone Bitart/Acetaminophen ([place] 325-10 Mg) 1 tab PO Q6HR [facility] Last Admin: 05/29/18 05:58 Dose: 1 tab Al Hydroxide/Mg Hydroxide (Mag-Al Plus) 30 ml PO Q4H PRN PRN Reason: Dyspepsia Aspirin (Aspirin) 81 mg CHEW DAILY@0800 [facility] Last Admin: 05/29/18 09:06 Dose: 81 mg Bisacodyl (Dulcolax) 10 mg RECTAL DAILY PRN PRN Reason: Constipation Calcium Carbonate/Glycine (Tums) 500 mg PO Q4H PRN PRN Reason: Dyspepsia Docusate Sodium (Colace) 100 mg PO DAILY PRN PRN Reason: Constipation Gabapentin (Neurontin) 200 mg PO BEDTIME [facility] Last Admin: 05/28/18 22:03 Dose: 200 mg Heparin Sodium (Porcine) (Heparin Sodium) 5,000 units SUBCUT Q12H [facility] Last Admin: 05/29/18 08:59 Dose: 5,000 units Piperacillin Sod/Tazobactam (Sod 3.375 gm/ Sodium Chloride) 100 mls @ 200 mls/ hr IV Q8H [facility] Stop: 06/12/18 17:01 Last Admin: 05/29/18 08:54 Dose: 200 mls/hr Ibuprofen (Motrin) 400 mg PO Q6H PRN PRN Reason: moderate pain Last Admin: 05/28/18 22:04 Dose: 400 mg Insulin Glargine (Lantus) 40 unit SUBCUT QAM [facility] Last Admin: 05/29/18 08:56 Dose: 40 units Insulin Human Lispro (Humalog) 5 unit SUBCUT TIDMEALS [facility] Last Admin: 05/29/18 08:57 Dose: 5 units Lisinopril (Prinivil) 10 mg PO DAILY [facility] Last Admin: 05/29/18 08:58 Dose: 10 mg Lorazepam (Ativan) 0.5 mg PO Q8H PRN PRN Reason: Anxiety Magnesium Hydroxide (Milk Of Magnesia) 30 ml PO BID PRN PRN Reason: Constipation Miscellaneous Information (Check Patch) 0 ea TRDERM BEDTIME [facility] Last Admin: 05/28/18 22:02 Dose: Not Given Nicotine (Habitrol) 21 mg TRDERM DAILY [facility] Last Admin: 05/29/18 09:07 Dose: Not Given Pregabalin (Lyrica) 100 mg PO TID [facility] Last Admin: 05/29/18 08:57 Dose: 100 mg Quetiapine Fumarate (Seroquel) 25 mg PO BEDTIME PRN PRN Reason: for sleep Last Admin: 05/29/18 00:22 Dose: 25 mg Sodium Chloride (Saline Flush) 10 ml FLUSH ASDIRECTED PRN PRN Reason: Keep Vein Open Last Admin: 05/28/18 09:01 Dose: 10 ml Venlafaxine HCl (Effexor Xr) 75 mg PO DAILY [facility] Last Admin: 05/29/18 08:58 Dose: 75 mg Venlafaxine HCl (Venlafaxine Hcl Er) 150 mg PO DAILY [facility] Last Admin: 05/29/18 08:58 Dose: 150 mg Zolpidem Tartrate (Ambien) 5 mg PO BEDTIME PRN PRN Reason: insomnia Last Admin: 05/29/18 00:23 Dose: 5 mg Discontinued Medications Hydrocodone Bitart/Acetaminophen ([place] 325-10 Mg) 1 tab PO ONETIME ONE Stop: 05/08/18 14:40 Last Admin: 05/08/18 15:22 Dose: 1 tab Meropenem 500 mg/ Sodium (Chloride) 100 mls @ 200 mls/hr IV Q8HR [facility] Stop: 06/03/18 16:01 Last Admin: 05/15/18 14:46 Dose: 200 mls/hr Piperacillin Sod/Tazobactam (Sod 3.375 gm/ Sodium Chloride) 50 mls @ 100 mls/ hr IV ONETIME ONE Stop: 05/28/18 09:29 Last Admin: 05/28/18 08:59 Dose: 100 mls/hr Influenza Virus Vaccine (Pharmacy To Dose - Influenza Vaccine) 1 each IM ONETIME ONE Stop: 05/08/18 13:45 Influenza Virus Vaccine (Fluzone Quad 1129-6338 Syringe) 60 mcg IM .ONCE ONE Stop: 05/08/18 17:31 Last Admin: 05/08/18 17:51 Dose: Not Given Insulin Glargine (Lantus) 40 unit SUBCUT ONETIME ONE Stop: 05/09/18 11:48 Last Admin: 05/09/18 12:21 Dose: 40 units Insulin Human Lispro (Humalog) 20 unit SUBCUT BID@0800,1200 [facility] Last Admin: 05/09/18 08:10 Dose: 20 units Nicotine (Habitrol) 14 mg TOP DAILY [facility] Last Admin: 05/11/18 08:42 Dose: 14 mg Nicotine 14 Mg/24 Hr (Patch) 14 each TOP DAILY [facility] Last Admin: 05/18/18 09:27 Dose: 14 each - Exam General: Alert, Oriented HEENT: Pupils Equal, Pupils Reactive, EOMI, Mucous Membr. Moist/[place] Neck: Supple Lungs: Clear to Auscultation, Normal Respiratory Effort Cardiovascular: Regular Rate, Regular Rhythm GI/Abdominal Exam: Normal Bowel Sounds, Soft, Non-Tender, No Organomegaly, No Distention, No Abnormal Bruit, No Mass, Pelvis Stable (Male) Exam: No Hernia, Normal Inspection, Normal Prostate, Circumcised Back Exam: Normal Inspection, Full Range of Motion Extremities: Normal Inspection, Normal Range of Motion, Non-Tender, No Pedal Edema, Normal Capillary Refill Skin: Warm, Dry, Intact Wound/Incisions: Healing Well Neurological: No New Focal Deficit Psy/Mental Status: Alert, Normal Affect, Normal Mood - Problem List & Annotations (1) Sepsis SNOMED Code(s): 71048671 Code(s): A41.9 - SEPSIS, UNSPECIFIED ORGANISM Status: Acute Current Visit : Yes (2) Bacteremia SNOMED Code(s): 4973587 Code(s): R78.81 - BACTEREMIA Status: Acute Current Visit: Yes (3) Alcohol abuse SNOMED Code(s): 06868345 Code(s): F10.10 - ALCOHOL ABUSE, UNCOMPLICATED Status: Acute Current Visit: No (4) Amputated toe of right foot SNOMED Code(s): 173432463, 385415174 Code(s): Z89.421 - ACQUIRED ABSENCE OF OTHER RIGHT TOE(S) Status: Acute Current Visit: No Onset Date: ~06/15/16 Annotation/Comment:: recent amputation of right middle toe 3-4 weeks ago now with cellulitsi, possbile abscess with sutures still intact, the patient noncomplainat with care/follow- up 06/15/2016 (5) Cellulitis SNOMED Code(s): 388678053 Code(s): L03.90 - CELLULITIS, UNSPECIFIED Status: Acute Current Visit: No Qualifiers: Site of cellulitis: extremity Site of cellulitis of extremity: lower extremity Laterality: right Qualified Code(s): L03.115 - Cellulitis of right lower limb (6) Substance abuse SNOMED Code(s): 24709455 Code(s): F19.10 - OTHER PSYCHOACTIVE SUBSTANCE ABUSE, UNCOMPLICATED Status : Acute Current Visit: No (7) Uncontrolled diabetes mellitus SNOMED Code(s): 30602622, 549765099 Code(s): E11.65 - TYPE 2 DIABETES MELLITUS WITH HYPERGLYCEMIA Status: Acute Current Visit: No Qualifiers: Diabetes mellitus type: type 1 Glycemic state: with hyperglycemia Qualified Code(s): E10.65 - Type 1 diabetes mellitus with hyperglycemia - Problem List Review Problem List Initiated/Reviewed/Updated: Yes - Plan Plan:: Right foot diabetic infection, chronic ulcer on the plantar aspect of the right foot at the level of the head of the fourth metatarsal. Cultures from this were Klebsiella oxytoca, group B strep, and methicillin- susceptible Staphylococcus aureus and strep mitis/oralis No evidence of Osteo /abscess on MRI Gram-positive bacillus bacteremia, could be contamination but as it is 2/2 could be pathogen Echo neg for vegetation Continue Zosyn. Plan for about 4-6 weeks of abx Patient due to ID follow up today. History of second and third toe amputations along with amputation of the distal metatarsals of the right foot in March 2017. Open reduction and internal fixation of the right ankle for a trimalleolar fracture in 2004. Hypertension Continue Lisinopril Diabetes SSI plus Levemir POC glucose 4x daily Hypoglycemic protocol smoking cessation was encouraged increase nicotine patch Diabetic diet Full code
[2018-05-29] MEDS ORDERED: oxyCODONE 5 MG Tab PO PRN (16:13)
[2018-05-29] MEDS: oxyCODONE 5 MG Tab PO SCH ×2 (16:57→22:06)
[2018-05-29] MEDS: Check Patch TRDERM SCH (22:05)
[2018-05-29] MEDS: Gabapentin 100 MG Cap PO SCH (22:06)
[2018-05-29] MEDS: Sodium Chloride 0.9% 10 ML Syringe FLUSH PRN (22:10)
[2018-05-30] MEDS: Sodium Chloride 0.9% 10 ML Syringe FLUSH PRN ×5 (00:41→21:20)
[2018-05-30] MEDS: Piperacillin/Tazobactam 3.375 GM in Sodium Chloride 0.9% 100 ML IV SCH ×3 (00:44→17:30)
[2018-05-30] MEDS: oxyCODONE 5 MG Tab PO SCH ×4 (05:03→22:51)
[2018-05-30] MEDS: Lisinopril 10 MG Tab PO SCH (09:34)
[2018-05-30] MEDS: Venlafaxine 37.5 MG Cap.ER PO SCH (09:35)
[2018-05-30] MEDS: Aspirin 81 MG Tab.Chew CHEW SCH (09:35)
[2018-05-30] MEDS: Insulin Glarg,Human.Rec.Analog 100 UNIT/ML ML SUBCUT SCH (09:35)
[2018-05-30] MEDS: Heparin Sodium 5,000 Units/ML Vial SUBCUT SCH ×2 (09:35→21:21)
[2018-05-30] MEDS: Pregabalin 50 MG Cap PO SCH ×3 (09:35→21:17)
[2018-05-30] MEDS: Venlafaxine 150 MG CAP.ER PO SCH (09:35)
[2018-05-30] MEDS: Insulin Lispro 100 Units/ML 3 ML Vial SUBCUT SCH ×3 (09:36→17:30)
[2018-05-30] MEDS: Nicotine 21 MG/24 Hr Patch TRDERM SCH (09:36)
[2018-05-30] MEDS: Gabapentin 100 MG Cap PO SCH (21:17)
[2018-05-30] MEDS: QUEtiapine 25 MG Tab PO PRN (22:53)
[2018-05-31] MEDS: Sodium Chloride 0.9% 10 ML Syringe FLUSH PRN ×2 (09:47→20:19)
[2018-05-31] MEDS: oxyCODONE 5 MG Tab PO SCH ×4 (10:37→22:51)
[2018-05-31] MEDS: Insulin Lispro 100 Units/ML 3 ML Vial SUBCUT SCH ×3 (10:38→17:42)
[2018-05-31] MEDS: Piperacillin/Tazobactam 3.375 GM in Sodium Chloride 0.9% 100 ML IV SCH ×2 (10:38→17:43)
[2018-05-31] MEDS: Aspirin 81 MG Tab.Chew CHEW SCH (10:38)
[2018-05-31] MEDS: Heparin Sodium 5,000 Units/ML Vial SUBCUT SCH ×2 (10:39→20:22)
[2018-05-31] MEDS: Venlafaxine 37.5 MG Cap.ER PO SCH (10:39)
[2018-05-31] MEDS: Insulin Glarg,Human.Rec.Analog 100 UNIT/ML ML SUBCUT SCH (10:40)
[2018-05-31] MEDS: Venlafaxine 150 MG CAP.ER PO SCH (10:41)
[2018-05-31] MEDS: Pregabalin 50 MG Cap PO SCH ×3 (10:41→20:18)
[2018-05-31] MEDS: Lisinopril 10 MG Tab PO SCH (10:41)
[2018-05-31] MEDS: Gabapentin 100 MG Cap PO SCH (20:18)
[2018-05-31] MEDS: QUEtiapine 25 MG Tab PO PRN (22:53)
[2018-05-31] MEDS: Zolpidem 5 MG Tab PO PRN (23:08)
[2018-06-01] MEDS: Sodium Chloride 0.9% 10 ML Syringe FLUSH PRN ×2 (00:51→01:35)
[2018-06-01] MEDS: Piperacillin/Tazobactam 3.375 GM in Sodium Chloride 0.9% 100 ML IV SCH ×3 (00:54→17:08)
[2018-06-01] MEDS: oxyCODONE 5 MG Tab PO SCH ×4 (05:38→23:21)
[2018-06-01] MEDS: Venlafaxine 37.5 MG Cap.ER PO SCH (08:51)
[2018-06-01] MEDS: Venlafaxine 150 MG CAP.ER PO SCH (08:51)
[2018-06-01] MEDS: Aspirin 81 MG Tab.Chew CHEW SCH (08:51)
[2018-06-01] MEDS: Lisinopril 10 MG Tab PO SCH (08:52)
[2018-06-01] MEDS: Insulin Lispro 100 Units/ML 3 ML Vial SUBCUT SCH ×3 (08:52→17:09)
[2018-06-01] MEDS: Heparin Sodium 5,000 Units/ML Vial SUBCUT SCH ×2 (08:52→21:27)
[2018-06-01] MEDS: Pregabalin 50 MG Cap PO SCH ×3 (08:52→21:28)
[2018-06-01] MEDS: Insulin Glarg,Human.Rec.Analog 100 UNIT/ML ML SUBCUT SCH (08:53)
[2018-06-01] MEDS: Gabapentin 100 MG Cap PO SCH (21:27)
[2018-06-02] MEDS: Piperacillin/Tazobactam 3.375 GM in Sodium Chloride 0.9% 100 ML IV SCH ×3 (00:54→17:09)
[2018-06-02] MEDS: QUEtiapine 25 MG Tab PO PRN (01:42)
[2018-06-02] MEDS: oxyCODONE 5 MG Tab PO SCH ×4 (05:19→22:45)
[2018-06-02] MEDS: Insulin Lispro 100 Units/ML 3 ML Vial SUBCUT SCH ×3 (08:23→17:18)
[2018-06-02] MEDS: Pregabalin 50 MG Cap PO SCH ×3 (09:36→20:38)
[2018-06-02] MEDS: Venlafaxine 37.5 MG Cap.ER PO SCH (09:37)
[2018-06-02] MEDS: Aspirin 81 MG Tab.Chew CHEW SCH (09:38)
[2018-06-02] MEDS: Insulin Glarg,Human.Rec.Analog 100 UNIT/ML ML SUBCUT SCH (09:38)
[2018-06-02] MEDS: Venlafaxine 150 MG CAP.ER PO SCH (09:38)
[2018-06-02] MEDS: Heparin Sodium 5,000 Units/ML Vial SUBCUT SCH ×2 (09:39→20:37)
[2018-06-02] MEDS: Lisinopril 10 MG Tab PO SCH (09:40)
[2018-06-02] MEDS: Sodium Chloride 0.9% 10 ML Syringe FLUSH PRN ×2 (09:44→17:09)
[2018-06-02] MEDS: Gabapentin 100 MG Cap PO SCH (20:38)
[2018-06-03] MEDS: QUEtiapine 25 MG Tab PO PRN (01:14)
[2018-06-03] MEDS: Piperacillin/Tazobactam 3.375 GM in Sodium Chloride 0.9% 100 ML IV SCH ×3 (01:14→17:18)
[2018-06-03] MEDS: oxyCODONE 5 MG Tab PO SCH ×4 (05:13→23:05)
[2018-06-03] MEDS: Insulin Lispro 100 Units/ML 3 ML Vial SUBCUT SCH ×3 (08:35→17:20)
[2018-06-03] MEDS: Pregabalin 50 MG Cap PO SCH ×3 (08:36→20:51)
[2018-06-03] MEDS: Venlafaxine 150 MG CAP.ER PO SCH (08:37)
[2018-06-03] MEDS: Aspirin 81 MG Tab.Chew CHEW SCH (08:37)
[2018-06-03] MEDS: Lisinopril 10 MG Tab PO SCH (08:37)
[2018-06-03] MEDS: Venlafaxine 37.5 MG Cap.ER PO SCH (08:37)
[2018-06-03] MEDS: Heparin Sodium 5,000 Units/ML Vial SUBCUT SCH ×2 (08:38→20:51)
[2018-06-03] MEDS: Sodium Chloride 0.9% 10 ML Syringe FLUSH PRN ×2 (08:41→17:16)
[2018-06-03] MEDS: Insulin Glarg,Human.Rec.Analog 100 UNIT/ML ML SUBCUT SCH (08:43)
[2018-06-03] MEDS: Gabapentin 100 MG Cap PO SCH (20:52)
[2018-06-04] MEDS: Piperacillin/Tazobactam 3.375 GM in Sodium Chloride 0.9% 100 ML IV SCH ×4 (01:03→23:59)
[2018-06-04] MEDS: oxyCODONE 5 MG Tab PO SCH ×4 (05:17→23:56)
[2018-06-04] MEDS: Lisinopril 10 MG Tab PO SCH (08:07)
[2018-06-04] MEDS: Venlafaxine 150 MG CAP.ER PO SCH (08:08)
[2018-06-04] MEDS: Venlafaxine 37.5 MG Cap.ER PO SCH (08:09)
[2018-06-04] MEDS: Pregabalin 50 MG Cap PO SCH ×3 (08:11→21:43)
[2018-06-04] MEDS: Aspirin 81 MG Tab.Chew CHEW SCH (08:11)
[2018-06-04] MEDS: Heparin Sodium 5,000 Units/ML Vial SUBCUT SCH ×2 (08:12→21:43)
[2018-06-04] MEDS: Sodium Chloride 0.9% 10 ML Syringe FLUSH PRN (08:17)
[2018-06-04] MEDS: Insulin Glarg,Human.Rec.Analog 100 UNIT/ML ML SUBCUT SCH (08:24)
[2018-06-04] MEDS: Insulin Lispro 100 Units/ML 3 ML Vial SUBCUT SCH ×3 (08:29→17:02)
[2018-06-04] MEDS: Zolpidem 5 MG Tab PO PRN (21:43)
[2018-06-04] MEDS: Gabapentin 100 MG Cap PO SCH (21:43)
[2018-06-05] MEDS: oxyCODONE 5 MG Tab PO SCH ×4 (05:42→17:30)
[2018-06-05] MEDS: Insulin Lispro 100 Units/ML 3 ML Vial SUBCUT SCH ×2 (09:01→12:17)
[2018-06-05] MEDS: Piperacillin/Tazobactam 3.375 GM in Sodium Chloride 0.9% 100 ML IV SCH ×2 (09:01→17:04)
[2018-06-05] MEDS: Insulin Glarg,Human.Rec.Analog 100 UNIT/ML ML SUBCUT SCH (09:02)
[2018-06-05] MEDS: Pregabalin 50 MG Cap PO SCH ×2 (09:03→14:22)
[2018-06-05] MEDS: Lisinopril 10 MG Tab PO SCH (09:03)
[2018-06-05] MEDS: Venlafaxine 37.5 MG Cap.ER PO SCH (09:03)
[2018-06-05] MEDS: Venlafaxine 150 MG CAP.ER PO SCH (09:03)
[2018-06-05] MEDS: Aspirin 81 MG Tab.Chew CHEW SCH (09:03)
[2018-06-05] MEDS: Heparin Sodium 5,000 Units/ML Vial SUBCUT SCH (09:04)
[2018-06-05 09:05] VITALS: BP 105/72
--- NOTE | 2018-06-06 01:31 | DISCH ---
ADMITTING DIAGNOSES: 1. Right foot diabetic infection. 2. Chronic ulcer on the plantar aspect of the right foot at the head of the fourth metatarsal. 3. Cultures positive for Klebsiella, group B Streptococcus, and methicillin- susceptible Staphylococcus aureus. 4. Gram-positive to bacillus bacteremia. DISCHARGE DIAGNOSES: 1. Right foot diabetic foot infection, treated with long-term IV antibiotics while in the Swing Bed, improved. 2. Chronic ulcer to the plantar aspect of the right foot at the head of the fourth metatarsal. Continue with dressing changes at home and follow with the primary care physician. 3. Gram-positive bacillus bacteremia, possible contaminant resolved. HISTORY OF PRESENTING ILLNESS: Mr. Echevarria is a 47-year-old male with a medical history significant for hypertension, type 2 diabetes mellitus, history of hepatitis C, and history of right second and third toe amputation and amputation of the right toe and second metatarsal partially. Around 03/2017, he was admitted initially to [facility] for complaints of infection and noted to have cellulitis and wound to the right foot, was also noted to have bacteremia at that time. His blood cultures were growing 2/2 for basilar species. The wound culture from the right plantar ulcer showed Klebsiella oxytoca, methicillin-susceptible Staph aureus, and group B streptococcus. MRI of the right foot showed no evidence of osteomyelitis or septic arthritis. Findings were consistent with cellulitis. MRI of the right ankle showed no evidence of osteomyelitis. It showed some marrow edema of the right medial cuneiform and the base of the first metatarsal and focal marrow edema within the base of the right fourth metatarsal. Infectious Disease was consulted and has recommended for long-term IV antibiotic with meropenem and was admitted to Swing Bed for completion of his 4 weeks of IV antibiotics. He responded well to the treatment. He was able to ambulate with help of the walker and wheelchair. He is discharged to home in stable condition. He is educated about ill effects of opiate pain medications on his health and strictly encouraged him to taper down the opiate pain medications. He was given insulin regimen for good control of his diabetes. He was explained about the importance of wound care and to prevent from further declining of his wounds, which he understands and verbalized the same. He is advised to follow with his primary care physician in the next 1 week of time. CONDITION ON ADMISSION: Poor. CONDITION ON DISCHARGE: Stable. DISPOSITION: Discharged to home. DISCHARGE INSTRUCTIONS: 1. Diet: Cardiac healthy diet and consistent carbohydrate diet. 2. Daily wound dressing changes as directed. 3. Follow with primary care physician in the next 1 week of time. DISCHARGE MEDICATIONS: Include: 1. Aspirin 1 tablet daily 81 mg. 2. Hydrocodone with acetaminophen 10/325 mg 1 tablet every 6 hours for 1 week. 3. NovoLog Pen 20 units twice a day. 4. Levemir Pen 40 units daily. 5. Lisinopril 10 mg daily. 6. Lyrica 100 mg 3 times a day. 7. Effexor 225 mg daily. PHYSICAL EXAMINATION: On the day of discharge: Vital Signs: Temperature of 98.2, pulse of 73, blood pressure 105/72, respiratory rate of 20, and saturating at 99%. General Appearance: The patient is well oriented to time, place, and person. Follows commands spontaneously. Cardiovascular System: S1 and S2 heard with normal intensity. No gallops. Respiratory System: Clear to auscultation bilaterally. No wheeze. No crepitations. Abdomen: Soft. Bowel sounds positive. Nontender. No rigidity. Extremities: No edema in the bilateral lower extremities or chronic ulcer noted on the right foot, and status post partial amputation of the toes. Neurology: No gross focal neurological deficit. TIME SPENT: Spent over 35 minutes of time in evaluating and treating this patient and making discharge plans. [facility] /[id number]
== END 2018-06-05 17:45 | disposition home or self-care (01) | DRG 872 ==
LOC: DL.MS 13:30 → UNDOADMIN 13:30 → EEVIPCON 14:51 → DL.MS 14:51
PROVIDERS: ADMIT Student in an Organized Health Care Education/Training Program; ATTEND Internal Medicine
PROC: F07Z9ZZ Gait Training/Functional Ambulation Treatment (ICD-10-PCS; principal; 2018-05-11)
PROC: F08Z4ZZ Home Management Treatment (ICD-10-PCS; 2018-05-11)
DX: A41.9 Sepsis, unspecified organism (principal); L97.419 Non-pressure chronic ulcer of right heel and midfoot with unspecified severity; L03.115 Cellulitis of right lower limb; E11.621 Type 2 diabetes mellitus with foot ulcer; B96.1 Klebsiella pneumoniae [K. pneumoniae] as the cause of diseases classified elsewhere; B95.1 Streptococcus, group B, as the cause of diseases classified elsewhere; B95.61 Methicillin susceptible Staphylococcus aureus infection as the cause of diseases classified elsewhere; I10 Essential (primary) hypertension; B19.20 Unspecified viral hepatitis C without hepatic coma; H53.8 Other visual disturbances; F32.9 Major depressive disorder, single episode, unspecified; F17.210 Nicotine dependence, cigarettes, uncomplicated; F10.10 Alcohol abuse, uncomplicated; F19.10 Other psychoactive substance abuse, uncomplicated; E11.65 Type 2 diabetes mellitus with hyperglycemia; Z89.421 Acquired absence of other right toe(s); Z88.5 Allergy status to narcotic agent; Z91.013 Allergy to seafood; Z79.4 Long term (current) use of insulin; Z79.82 Long term (current) use of aspirin; Z79.899 Other long term (current) drug therapy; Z86.14 Personal history of Methicillin resistant Staphylococcus aureus infection; Z71.6 Tobacco abuse counseling; Z23 Encounter for immunization
CPT/HCPCS: 36415; 80048; 82565; 82962; 84460; 85025; 85651; 86140; 90686; 97161-GP; 97165-GO; A9270-GY; J1644; J1815; J1815-GY; J2185; J2543; J7050

== ENCOUNTER 2018-06-26 22:37 | Emergency (ER) | payer MEDICAID ==
[2018-06-26] MEDS ORDERED: Sodium Chloride 0.9% 1,000 ML IV ONE (22:51)
--- NOTE | 2018-06-26 22:55 | EDM.PDOC ---
ED HPI GENERAL MEDICAL PROBLEM - General Chief Complaint: Neurological Problem Stated Complaint: AMBULANCE-UNKNOWN Time Seen by Provider: 06/26/18 22:53 Source of Information: Reports: Family History Limitations: Reports: Altered Mental Status - History of Present Illness INITIAL COMMENTS - FREE TEXT/NARRATIVE: sister in law called for pt not acting himself. pt arrived confused with fever and not wanting to speak. - Related Data Allergies Allergy/AdvReac Type Severity Reaction Status Date / Time propoxyphene napsylate Allergy Itching Verified 06/26/18 23:40 [From [place]-N] fish Allergy Swelling Uncoded 06/26/18 23:40 Home Meds: Home Meds Aspirin 1 tab CHEW DAILY 11/30/14 [History] Lisinopril 10 mg PO DAILY 06/15/16 [History] Venlafaxine [Effexor] 225 mg PO DAILY 05/08/18 [History] Hydrocodone/Acetaminophen [[place] 10-325 Tablet] 1 tab PO Q6HR #30 tablet [Rx] Insulin Aspart [NovoLOG] 20 units SQ BID #1 pen 06/05/18 [Rx] Insulin Detemir [Levemir] 40 unit SUBCUT DAILY #1 pen 06/05/18 [Rx] Pregabalin [Lyrica] 100 mg PO TID #20 cap 06/05/18 [Rx] Past Medical History HEENT History: Reports: Other (See Below) Other HEENT History: blurred vision at times Cardiovascular History: Reports: Hypertension Respiratory History: Reports: None Gastrointestinal History: Reports: None Genitourinary History: Reports: None Musculoskeletal History: Reports: Amputation Other Musculoskeletal History: right foot 2nd and 3rd toe, left foot 5th toe, left hand 3rd digit, plate in right hand Neurological History: Reports: None Psychiatric History: Reports: Depression Endocrine/Metabolic History: Reports: Diabetes, Type II Hematologic History: Reports: None Immunologic History: Reports: None Oncologic (Cancer) History: Reports: None Dermatologic History: Reports: Cellulitis, Other (See Below) Other Dermatologic History: diabetic foot ulcers - Infectious Disease History Infectious Disease History: Reports: MRSA - Past Surgical History Head Surgeries/Procedures: Reports: None HEENT Surgical History: Reports: Naso-Sinus Surgery Cardiovascular Surgical History: Reports: None Respiratory Surgical History: Reports: None GI Surgical History: Reports: None Male Surgical History: Reports: None Endocrine Surgical History: Reports: None Neurological Surgical History: Reports: None Musculoskeletal Surgical History: Reports: Amputation, Arthroscopic Knee Other Musculoskeletal Surgeries/Procedures:: 2 toes amputated Social & Family History - Family History Family Medical History: Noncontributory - Caffeine Use Caffeine Use: Reports: Coffee, Soda - Living Situation & Occupation Living situation: Reports: Other ED ROS GENERAL - Review of Systems Review Of Systems: ROS reveals no pertinent complaints other than HPI. - Physical Exam Exam: See Below Exam Limited By: No Limitations General Appearance: Alert, Other (non verbal) Ears: Hearing Grossly Normal Throat/Mouth: No Airway Compromise Head Exam: Atraumatic Neck: Non-Tender, Full Range of Motion Respiratory/Chest: No Respiratory Distress, Rhonchi Cardiovascular: Regular Rate, Rhythm GI/Abdominal: Soft, Non-Tender Neuro Exam (Abbreviated): Slow to Respond Extremities: Other (right plantar draining abscess, NV wnl.) Psychiatric: Flat Affect Skin Exam: Warm, Dry Course - Vital Signs Last Recorded V/S: Last Vital Signs Temp 38.7 C H 06/26/18 22:40 Pulse 113 H 06/26/18 23:55 Resp 19 06/26/18 23:55 BP 109/60 06/26/18 23:55 Pulse Ox 97 06/26/18 23:55 - Orders/Labs/Meds Orders: Active Orders 24 hr Category Date Time Status EKG Documentation Completion [RC] STAT Care 06/26/18 22:47 Active CULTURE BLOOD [BC] Stat Lab 06/26/18 22:51 Received CULTURE URINE [RM] Stat Lab 06/26/18 23:13 Received Labs: Laboratory Tests 06/26/18 06/26/18 06/26/18 Range/Units 22:46 22:51 22:51 WBC 8.1 (5.0-10.0) 10^3/uL RBC 4.16 L (4.6-6.2) 10^6/uL Hgb 12.3 L (14.0-18.0) g/dL Hct 35.4 L (40.0-54.0) % MCV 85.1 (80-100) fL MCH 29.6 (27.0-34.0) pg MCHC 34.7 (33.0-35.0) g/dL Plt Count 134 L D (150-450) 10^3/uL Neut % (Auto) 93.7 H (42.2-75.2) % Lymph % (Auto) 4.9 L (20.5-50.1) % [place] % (Auto) 1.2 L (2-8) % Eos % (Auto) 0.1 L (1.0-3.0) % Baso % (Auto) 0.1 (0.0-1.0) % Sodium 133 L (135-145) mmol/L Potassium 3.7 (3.6-5.0) mmol/L Chloride 102 (101-111) mmol/L Carbon Dioxide 20.0 L (21.0-31.0) mmol/L Anion Gap 14.7 BUN 25 H (7-18) mg/dL Creatinine 1.2 (0.6-1.3) mg/dL Est Cr Clr Drug Dosing 86.93 mL/min Estimated GFR (MDRD) > 60 BUN/Creatinine Ratio 20.83 Glucose 219 H (74-105) mg/dL POC Glucose 206 H (70-105) mg/dl Lactic Acid (0.5-2.2) mmol/L Calcium 8.6 (8.4-10.2) mg/dl Total Bilirubin 1.5 H (0.2-1.0) mg/dL AST 51 H (10-42) IU/L ALT 38 (10-60) IU/L Alkaline Phosphatase 121 (42-121) IU/L Troponin I < 0.02 (0.00-0.02) ng/ml Total Protein 7.1 (6.7-8.2) g/dl Albumin 3.5 (3.2-5.5) g/dl Globulin 3.6 Albumin/Globulin Ratio 0.97 Urine Color (YELLOW) Urine Appearance (CLEAR) Urine pH (5.0-9.0) Ur Specific [place] (1.005-1.030) Urine Protein (NEGATIVE) Urine Glucose (UA) (NEGATIVE) Urine Ketones (NEGATIVE) Urine Occult Blood (NEGATIVE) Urine Nitrite (NEGATIVE) Urine Bilirubin (NEGATIVE) Urine Urobilinogen (0.2-1.0) mg/dL Ur Leukocyte Esterase (NEGATIVE) Urine RBC /HPF Urine WBC (0-5/HPF) /HPF Ur Epithelial Cells /HPF Urine Bacteria (0-FEW/HPF) /HPF Urine Mucus /LPF Urine Opiates Screen (NEGATIVE) Ur Oxycodone Screen (NEGATIVE) Urine Methadone Screen (NEGATIVE) Ur Barbiturates Screen (NEGATIVE) U Tricyclic Antidepress (NEGATIVE) Ur Phencyclidine Scrn (NEGATIVE) Ur Amphetamine Screen (NEGATIVE) U Methamphetamines Scrn (NEGATIVE) Urine MDMA Screen (NEGATIVE) U Benzodiazepines Scrn (NEGATIVE) Urine Cocaine Screen (NEGATIVE) U Marijuana (THC) Screen (NEGATIVE) Ethyl Alcohol < 5 mg/dL 06/26/18 06/26/18 06/26/18 Range/Units 22:51 23:13 23:13 WBC (5.0-10.0) 10^3/uL RBC (4.6-6.2) 10^6/uL Hgb (14.0-18.0) g/dL Hct (40.0-54.0) % MCV (80-100) fL MCH (27.0-34.0) pg MCHC (33.0-35.0) g/dL Plt Count (150-450) 10^3/uL Neut % (Auto) (42.2-75.2) % Lymph % (Auto) (20.5-50.1) % [place] % (Auto) (2-8) % Eos % (Auto) (1.0-3.0) % Baso % (Auto) (0.0-1.0) % Sodium (135-145) mmol/L Potassium (3.6-5.0) mmol/L Chloride (101-111) mmol/L Carbon Dioxide (21.0-31.0) mmol/L Anion Gap BUN (7-18) mg/dL Creatinine (0.6-1.3) mg/dL Est Cr Clr Drug Dosing mL/min Estimated GFR (MDRD) BUN/Creatinine Ratio Glucose (74-105) mg/dL POC Glucose (70-105) mg/dl Lactic Acid 1.8 (0.5-2.2) mmol/L Calcium (8.4-10.2) mg/dl Total Bilirubin (0.2-1.0) mg/dL AST (10-42) IU/L ALT (10-60) IU/L Alkaline Phosphatase (42-121) IU/L Troponin I (0.00-0.02) ng/ml Total Protein (6.7-8.2) g/dl Albumin (3.2-5.5) g/dl Globulin Albumin/Globulin Ratio Urine Color Dark yellow (YELLOW) Urine Appearance Slightly cloudy (CLEAR) Urine pH 6.0 (5.0-9.0) Ur Specific [place] 1.020 (1.005-1.030) Urine Protein 100 H (NEGATIVE) Urine Glucose (UA) Negative (NEGATIVE) Urine Ketones 15 H (NEGATIVE) Urine Occult Blood Trace-intact H (NEGATIVE) Urine Nitrite Positive H (NEGATIVE) Urine Bilirubin Small H (NEGATIVE) Urine Urobilinogen 2.0 H (0.2-1.0) mg/dL Ur Leukocyte Esterase Negative (NEGATIVE) Urine RBC 0-5 /HPF Urine WBC 0-5 (0-5/HPF) /HPF Ur Epithelial Cells Few /HPF Urine Bacteria Moderate H (0-FEW/HPF) /HPF Urine Mucus Moderate H /LPF Urine Opiates Screen Negative (NEGATIVE) Ur Oxycodone Screen Negative (NEGATIVE) Urine Methadone Screen Negative (NEGATIVE) Ur Barbiturates Screen Negative (NEGATIVE) U Tricyclic Antidepress Negative (NEGATIVE) Ur Phencyclidine Scrn Negative (NEGATIVE) Ur Amphetamine Screen Positive H (NEGATIVE) U Methamphetamines Scrn Positive H (NEGATIVE) Urine MDMA Screen Negative (NEGATIVE) U Benzodiazepines Scrn Negative (NEGATIVE) Urine Cocaine Screen Negative (NEGATIVE) U Marijuana (THC) Screen Positive H (NEGATIVE) Ethyl Alcohol mg/dL Meds: Medications Discontinued Medications Generic Name Dose Route Start Last Admin Trade Name Freq PRN Reason Stop Dose Admin Acetaminophen 650 mg 06/26/18 23:48 06/26/18 23:53 Tylenol PO 06/26/18 23:49 650 mg NOW ONE Administration Sodium Chloride 1,000 mls @ 999 mls/hr 06/26/18 22:51 06/26/18 22:53 Normal Saline IV 06/26/18 23:51 999 mls/hr .BOLUS ONE Administration Ceftriaxone Sodium 1 gm/ 50 mls @ 50 mls/hr 06/26/18 23:57 06/27/18 00:06 Sodium Chloride IV 06/27/18 00:56 50 mls/hr ONETIME ONE Administration Sodium Chloride 1,000 mls @ 999 mls/hr 06/27/18 00:10 06/27/18 01:03 Normal Saline IV 06/27/18 01:10 Not Given .BOLUS ONE Sodium Chloride 1,000 mls @ 999 mls/hr 06/27/18 00:49 06/27/18 01:03 Normal Saline IV 06/27/18 01:49 999 mls/hr .BOLUS ONE Administration - Re-Assessments/Exams Free Text/Narrative Re-Assessment/Exam: 06/27/18 01:[address] Ku @ who kindly accepted pt Departure - Departure Time of Disposition: 01:55 Disposition: DC/Tfer to Acute Hospital 02 Condition: Poor Clinical Impression: Noncompliance with medication regimen, Cellulitis of foot Diabetes mellitus Qualifiers: Diabetes mellitus type: type 2 Diabetes mellitus retirement insulin use: with long term care administrator use Diabetes mellitus complication status: with unspecified complications Qualified Code(s): E11.8 - Type 2 diabetes mellitus with unspecified complications Sepsis Qualifiers: Sepsis type: sepsis due to unspecified organism Qualified Code(s): A41.9 - Sepsis, unspecified organism UTI (urinary tract infection) Qualifiers: Urinary tract infection type: site unspecified Hematuria presence: without hematuria Qualified Code(s): N39.0 - Urinary tract infection, site not specified Hypotension Qualifiers: Hypotension type: unspecified hypotension type Qualified Code(s): I95.9 - Hypotension, unspecified - Discharge Information Forms: Interfacility Transfer EMTALA - My Orders Last 24 Hours: My Active Orders 06/26/18 22:47 EKG Documentation Completion [RC] STAT 06/26/18 22:51 CULTURE BLOOD [BC] Stat 06/26/18 23:13 CULTURE URINE [RM] Stat - Assessment/Plan Last 24 Hours: My Active Orders 06/26/18 22:47 EKG Documentation Completion [RC] STAT 06/26/18 22:51 CULTURE BLOOD [BC] Stat 06/26/18 23:13 CULTURE URINE [RM] Stat
[2018-06-26 23:20] LABS: ANION GAP 14.7; CHLORIDE,CL 102 mmol/L (101-111); SODIUM,NA 133 mmol/L (135-145)
[2018-06-26] MEDS ORDERED: Acetaminophen 325 MG Tab PO ONE (23:48)
[2018-06-26 23:55] VITALS: BP 109/60
[2018-06-26] MEDS ORDERED: cefTRIAXone 1 GM in Sodium Chloride 0.9% 50 ML IV ONE (23:57)
[2018-06-27] MEDS ORDERED: Sodium Chloride 0.9% 1,000 ML IV ONE ×2 (00:10→00:49)
== END 2018-06-27 02:51 ==
LOC: EEVIPCON 22:37 → DL.ED 22:37
DX: A41.9 Sepsis, unspecified organism (principal); N39.0 Urinary tract infection, site not specified; I95.9 Hypotension, unspecified; E11.8 Type 2 diabetes mellitus with unspecified complications; L02.611 Cutaneous abscess of right foot; L03.115 Cellulitis of right lower limb; I10 Essential (primary) hypertension; Z79.82 Long term (current) use of aspirin; Z79.4 Long term (current) use of insulin; Z91.013 Allergy to seafood; Z88.8 Allergy status to other drugs, medicaments and biological substances
CPT/HCPCS: 36415; 70450; 71045; 80053; 80305; 81001; 82962; 83605; 84484; 85025; 87040; 87077; 87086; 87186; 93005; 96361; 96374; 99285; A9270; G0480; J0696; J7030; J7050

== ENCOUNTER 2018-11-19 14:32 | Emergency (ER) | payer MEDICAID ==
[2018-11-19 14:47] VITALS: BP 122/85
--- NOTE | 2018-11-19 19:31 | EDM.PDOC ---
ED HPI GENERAL MEDICAL PROBLEM - General Chief Complaint: Skin Complaint Stated Complaint: SPIDER BITE? Time Seen by Provider: 11/19/18 19:27 Source of Information: Reports: Patient History Limitations: Reports: No Limitations - History of Present Illness INITIAL COMMENTS - FREE TEXT/NARRATIVE: think got bit by spider 5? days ago, did squeeze it and got some pus out 2 days ago but not getting better. not seen anyone for it. Right Knee Pain Score (Numeric/FACES): 5 - Related Data Allergies Allergy/AdvReac Type Severity Reaction Status Date / Time propoxyphene napsylate Allergy Itching Verified 11/19/18 14:47 [From [place]-N] fish Allergy Swelling Uncoded 11/19/18 14:47 Home Meds: Home Meds Aspirin 1 tab CHEW DAILY 11/30/14 [History] Lisinopril 10 mg PO DAILY 06/15/16 [History] Venlafaxine [Effexor] 225 mg PO DAILY 05/08/18 [History] Hydrocodone/Acetaminophen [[place] 10-325 Tablet] 1 tab PO Q6HR #30 tablet [Rx] Insulin Aspart [NovoLOG] 20 units SQ BID #1 pen 06/05/18 [Rx] Insulin Detemir [Levemir] 40 unit SUBCUT DAILY #1 pen 06/05/18 [Rx] Pregabalin [Lyrica] 100 mg PO TID #20 cap 06/05/18 [Rx] Past Medical History HEENT History: Reports: Other (See Below) Other HEENT History: blurred vision at times Cardiovascular History: Reports: Hypertension Respiratory History: Reports: None Gastrointestinal History: Reports: None Genitourinary History: Reports: None Musculoskeletal History: Reports: Amputation Other Musculoskeletal History: right foot 2nd and 3rd toe, left foot 5th toe, left hand 3rd digit, plate in right hand Neurological History: Reports: None Psychiatric History: Reports: Depression Endocrine/Metabolic History: Reports: Diabetes, Type II Hematologic History: Reports: None Immunologic History: Reports: None Oncologic (Cancer) History: Reports: None Dermatologic History: Reports: Cellulitis, Other (See Below) Other Dermatologic History: diabetic foot ulcers - Infectious Disease History Infectious Disease History: Reports: Hepatitis C, MRSA - Past Surgical History Head Surgeries/Procedures: Reports: None HEENT Surgical History: Reports: Naso-Sinus Surgery Cardiovascular Surgical History: Reports: None Respiratory Surgical History: Reports: None GI Surgical History: Reports: None Male Surgical History: Reports: None Endocrine Surgical History: Reports: None Neurological Surgical History: Reports: None Musculoskeletal Surgical History: Reports: Amputation, Arthroscopic Knee Other Musculoskeletal Surgeries/Procedures:: 2 toes amputated Social & Family History - Family History Family Medical History: Noncontributory - Tobacco Use Smoking Status *Q: Current Every Day Smoker Years of Tobacco use: 35 Packs/Tins Daily: 1 - Caffeine Use Caffeine Use: Reports: Coffee - Recreational Drug Use Recreational Drug Use: Yes Recreational Drug Type: Reports: Marijuana/Hashish Recreational Drug Use Frequency: Daily - Living Situation & Occupation Living situation: Reports: Other ED ROS GENERAL - Review of Systems Review Of Systems: ROS reveals no pertinent complaints other than HPI. ED EXAM, SKIN/RASH Exam: See Below Exam Limited By: No Limitations General Appearance: Alert, WD/WN, No Apparent Distress Ears: Hearing Grossly Normal Throat/Mouth: Normal Voice, No Airway Compromise Head: Atraumatic Neck: Non-Tender, Full Range of Motion Respiratory/Chest: No Respiratory Distress Cardiovascular: Regular Rate, Rhythm GI/Abdominal: Soft, Non-Tender Extremities: Other (right thigh anterior lower abscess minimal erythema no lympangitis, NV wnl.) Neurological: Alert, Oriented, Normal Cognition, Normal Gait, No Motor/Sensory Deficits Psychiatric: Normal Affect, Normal Mood Skin: Warm, Dry, Normal Color Location, Skin: Lower Extremity, Right Characteristics: Erythematous, Other (firm non flucytuant) Associated features: Tenderness, Swelling, Inflammation Lymphatic: No Adenopathy Course - Vital Signs Last Recorded V/S: Last Vital Signs Temp 36.3 C 11/19/18 14:45 Pulse 94 11/19/18 14:45 Resp 16 11/19/18 14:45 BP 122/85 11/19/18 14:45 Pulse Ox 100 11/19/18 14:45 Departure - Departure Time of Disposition: 19:31 Disposition: Home, Self-Care 01 Condition: Good Clinical Impression: Abscess - Discharge Information Instructions: Skin Abscess, [id number] Additional Instructions: 1) use hot compress for 15 minutes 3 to 4 times daily over the weekend 2) follow up at clinic rx given; clindamycin 300mg qid x 40
== END 2018-11-19 19:41 | disposition home or self-care (01) ==
LOC: DL.ED 14:32
DX: L02.415 Cutaneous abscess of right lower limb (principal); I10 Essential (primary) hypertension; E11.9 Type 2 diabetes mellitus without complications; F17.210 Nicotine dependence, cigarettes, uncomplicated; Z79.82 Long term (current) use of aspirin; Z91.013 Allergy to seafood; Z79.899 Other long term (current) drug therapy; Z79.4 Long term (current) use of insulin; Z88.8 Allergy status to other drugs, medicaments and biological substances
CPT/HCPCS: 99281

== ENCOUNTER 2018-12-09 18:24 | Emergency (ER) | payer MEDICAID ==
[2018-12-09 19:30] LABS: ANION GAP 13.7; CHLORIDE,CL 95 mmol/L (101-111); SODIUM,NA 133 mmol/L (135-145)
--- NOTE | 2018-12-09 19:31 | EDM.PDOC ---
ED HPI GENERAL MEDICAL PROBLEM - General Chief Complaint: Skin Complaint Stated Complaint: POSSIBLE RIGHT HAND BROKEN PER PT Time Seen by Provider: 12/09/18 19:15 Source of Information: Reports: Patient History Limitations: Reports: No Limitations - History of Present Illness INITIAL COMMENTS - FREE TEXT/NARRATIVE: This 48 yo male patient reports to the ED with right middle finger pain and swelling. The patient reports he slammed his finger into a door on Friday and has noticed increased pain, redness and swelling since that time. The patient is a diabetic and has a history of toe amputations due to osteo as well as a history of MRSA. The patient reports he has been attempting to rest, ice and elevate his hand over the past 5 days, but his symptoms continue to get worse. 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 Therapy Right Hand Pain Score (Numeric/FACES): 8 - Related Data Allergies Allergy/AdvReac Type Severity Reaction Status Date / Time propoxyphene napsylate Allergy Itching Verified 12/09/18 18:37 [From [place]] fish Allergy Swelling Uncoded 12/09/18 18:37 Home Meds: Home Meds Aspirin 81 mg PO DAILY 11/30/14 [History] Lisinopril 10 mg PO DAILY 06/15/16 [History] Venlafaxine [Effexor] 225 mg PO DAILY 05/08/18 [History] Insulin Aspart [NovoLOG] 20 units SQ BID #1 pen 06/05/18 [Rx] Insulin Detemir [Levemir] 40 unit SUBCUT DAILY #1 pen 06/05/18 [Rx] Pregabalin [Lyrica] 100 mg PO TID #20 cap 06/05/18 [Rx] Past Medical History HEENT History: Reports: Other (See Below) Other HEENT History: blurred vision at times Cardiovascular History: Reports: Hypertension Respiratory History: Reports: None Gastrointestinal History: Reports: None Genitourinary History: Reports: None Musculoskeletal History: Reports: Amputation Other Musculoskeletal History: right foot 2nd and 3rd toe, left foot 5th toe, left hand 3rd digit, plate in right hand Neurological History: Reports: None Psychiatric History: Reports: Depression Endocrine/Metabolic History: Reports: Diabetes, Type II Hematologic History: Reports: None Immunologic History: Reports: None Oncologic (Cancer) History: Reports: None Dermatologic History: Reports: Cellulitis, Other (See Below) Other Dermatologic History: diabetic foot ulcers - Infectious Disease History Infectious Disease History: Reports: Hepatitis C, MRSA - Past Surgical History Head Surgeries/Procedures: Reports: None HEENT Surgical History: Reports: Naso-Sinus Surgery Cardiovascular Surgical History: Reports: None Respiratory Surgical History: Reports: None GI Surgical History: Reports: None Male Surgical History: Reports: None Endocrine Surgical History: Reports: None Neurological Surgical History: Reports: None Musculoskeletal Surgical History: Reports: Amputation, Arthroscopic Knee Other Musculoskeletal Surgeries/Procedures:: 2 toes amputated Social & Family History - Family History Family Medical History: Noncontributory - Tobacco Use Smoking Status *Q: Current Every Day Smoker Years of Tobacco use: 40 Packs/Tins Daily: 0.1 - Caffeine Use Caffeine Use: Reports: Coffee - Living Situation & Occupation Living situation: Reports: Other ED ROS GENERAL - Review of Systems Review Of Systems: ROS reveals no pertinent complaints other than HPI. ED EXAM, SKIN/RASH Exam: See Below Exam Limited By: No Limitations General Appearance: Alert, WD/WN, Moderate Distress Eye Exam: Bilateral Eye: EOMI, Normal Inspection, PERRL Ears: Normal External Exam, Normal Canal, Hearing Grossly Normal, Normal TMs Nose: Normal Inspection, Normal Mucosa, No Blood Throat/Mouth: Normal Inspection, Normal Lips, Normal Teeth, Normal Gums, Normal Oropharynx, Normal Voice, No Airway Compromise Head: Atraumatic, Normocephalic Neck: Normal Inspection, Supple, Non-Tender, Full Range of Motion Respiratory/Chest: No Respiratory Distress, Lungs Clear, Normal Breath Sounds, No Accessory Muscle Use, Chest Non-Tender Cardiovascular: Normal Peripheral Pulses, Regular Rate, Rhythm, No Edema, No Gallop, No JVD, No Murmur, No Rub GI/Abdominal: Normal Bowel Sounds, Soft, Non-Tender, No Organomegaly, No Distention, No Abnormal Bruit, No Mass (Male) Exam: Deferred Rectal (Males) Exam: Deferred Back Exam: Normal Inspection, Full Range of Motion, NT Extremities: Arm Pain (right hand pain with swelling and erythema to the distal 3rd finger), Leg Pain (Drainage from amputation site in his right foot) Neurological: Alert, Oriented, CN II-XII Intact, Normal Cognition, Normal Gait, Normal Reflexes, No Motor/Sensory Deficits Psychiatric: Normal Affect, Normal Mood Skin: Erythema (right middle finger), Wound/Incision (right toes (wiht drainage from incision site)) Location, Skin: Upper Extremity, Right, Lower Extremity, Right Characteristics: Erythematous (hand/finger) Associated features: Warmth, Tenderness, Swelling, Inflammation, Weeping (right foot) Lymphatic: No Adenopathy Course - Vital Signs Last Recorded V/S: Last Vital Signs Temp 37.7 C 12/09/18 21:03 Pulse 72 12/09/18 21:03 Resp 18 12/09/18 21:03 BP 167/77 H 12/09/18 21:03 Pulse Ox 99 12/09/18 21:03 - Orders/Labs/Meds Orders: Active Orders 24 hr Category Date Time Status Hand Comp Min 3V Rt [CR] Urgent Exams 12/09/18 18:39 Taken CULTURE BLOOD [BC] Stat Lab 12/09/18 19:00 Received CULTURE BLOOD [BC] Stat Lab 12/09/18 19:34 Received Vancomycin 1.75 gm Med 12/09/18 19:42 Active Sodium Chloride 0.9% [Normal Saline] 500 ml IV ONETIME Medication Orders Vancomycin HCl 1.75 gm/ Sodium (Chloride) 500 mls @ 334 mls/hr IV ONETIME ONE Stop: 12/09/18 21:11 Last Admin: 12/09/18 20:05 Dose: 334 mls/hr Labs: Laboratory Tests 12/09/18 12/09/18 12/09/18 Range/Units 19:00 19:00 19:00 WBC 10.8 H (5.0-10.0) 10^3/uL RBC 4.68 (4.6-6.2) 10^6/uL Hgb 13.2 L (14.0-18.0) g/dL Hct 39.5 L (40.0-54.0) % MCV 84.4 (80-100) fL MCH 28.2 (27.0-34.0) pg MCHC 33.4 (33.0-35.0) g/dL Plt Count 245 D (150-450) 10^3/uL Neut % (Auto) 77.5 H (42.2-75.2) % Lymph % (Auto) 15.6 L (20.5-50.1) % [place] % (Auto) 6.1 (2-8) % Eos % (Auto) 0.5 L (1.0-3.0) % Baso % (Auto) 0.3 (0.0-1.0) % Sodium 133 L (135-145) mmol/L Potassium 3.7 (3.6-5.0) mmol/L Chloride 95 L (101-111) mmol/L Carbon Dioxide 28.0 (21.0-31.0) mmol/L Anion Gap 13.7 BUN 9 (7-18) mg/dL Creatinine 0.8 (0.6-1.3) mg/dL Est Cr Clr Drug Dosing 125.29 mL/min Estimated GFR (MDRD) > 60 BUN/Creatinine Ratio 11.25 Glucose 471 H* (74-105) mg/dL Lactic Acid 3.1 H (0.5-2.2) mmol/L Calcium 8.5 (8.4-10.2) mg/dl Total Bilirubin 0.6 (0.2-1.0) mg/dL AST 21 (10-42) IU/L ALT 20 (10-60) IU/L Alkaline Phosphatase 155 H (42-121) IU/L Total Protein 8.2 (6.7-8.2) g/dl Albumin 3.2 (3.2-5.5) g/dl Globulin 5.0 Albumin/Globulin Ratio 0.64 Meds: Medications Generic Name Dose Route Start Last Admin Trade Name Freq PRN Reason Stop Dose Admin Vancomycin HCl 1.75 gm/ Sodium 500 mls @ 334 mls/hr 12/09/18 19:42 12/09/18 20:05 Chloride IV 12/09/18 21:11 334 mls/hr ONETIME ONE Administration Discontinued Medications Generic Name Dose Route Start Last Admin Trade Name Freq PRN Reason Stop Dose Admin Hydromorphone HCl 1 mg 12/09/18 19:44 12/09/18 19:52 Dilaudid IVPUSH 12/09/18 19:45 1 mg ONETIME ONE Administration Sodium Chloride 1,000 mls @ 999 mls/hr 12/09/18 19:41 12/09/18 19:45 Normal Saline IV 12/09/18 20:41 999 mls/hr .BOLUS ONE Administration Departure - Departure Time of Disposition: 21:08 Disposition: Home, Self-Care 01 Condition: Fair Clinical Impression: Cellulitis of right hand - Discharge Information *PRESCRIPTION DRUG MONITORING PROGRAM REVIEWED*: Not Applicable *COPY OF PRESCRIPTION DRUG MONITORING REPORT IN PATIENT JENNIFER: Not Applicable Instructions: Cellulitis, Adult, [id number] Forms: ED Department Discharge Care Plan Goals: The patient was advised of the examination, lab and x-ray results during the visit. The patient was given IV Vancomycin, an oral dose of [place] and IV Dilaudid while in the ED. The patient was discharged with scripts for 1) Keflex (500 mg) #40 to take 1 by mouth 4 times per day for 10 days, 2) Bactrim DS #20 to take 1 by mouth 2 times per day for 10 days and 3) [place] (10/325) #4 to take 1 by mouth every 8 hours as needed for pain. The patient was encouraged to follow-up with his primary care facility within the next week for continued evaluation and management. If the patient has any additional symptoms or concerns, the patient should either return to the emergency department or visit his primary care facility. - My Orders Last 24 Hours: My Active Orders 12/09/18 19:00 CULTURE BLOOD [BC] Stat 12/09/18 19:34 CULTURE BLOOD [BC] Stat 12/09/18 19:42 Vancomycin 1.75 gm Sodium Chloride 0.9% [Normal Saline] 500 ml IV ONETIME - Assessment/Plan Last 24 Hours: My Active Orders 12/09/18 19:00 CULTURE BLOOD [BC] Stat 12/09/18 19:34 CULTURE BLOOD [BC] Stat 12/09/18 19:42 Vancomycin 1.75 gm Sodium Chloride 0.9% [Normal Saline] 500 ml IV ONETIME
[2018-12-09] MEDS ORDERED: Sodium Chloride 0.9% 1,000 ML IV ONE (19:41)
[2018-12-09] MEDS ORDERED: Vancomycin 1.75 GM in Sodium Chloride 0.9% 500 ML IV ONE (19:42)
[2018-12-09] MEDS ORDERED: HYDROmorphone 1 MG/ML Syringe IVPUSH ONE (19:44)
[2018-12-09] MEDS ORDERED: Acetaminophen/HYDROcodone 325-10 MG Tab PO ONE (21:28)
[2018-12-09 21:59] VITALS: BP 171/90; PULSE 76
== END 2018-12-09 21:58 | disposition home or self-care (01) ==
LOC: DL.ED 18:24
DX: L03.011 Cellulitis of right finger (principal); Z89.421 Acquired absence of other right toe(s); E11.9 Type 2 diabetes mellitus without complications; I10 Essential (primary) hypertension; F32.9 Major depressive disorder, single episode, unspecified; F17.210 Nicotine dependence, cigarettes, uncomplicated; Z88.8 Allergy status to other drugs, medicaments and biological substances; Z91.013 Allergy to seafood; Z79.82 Long term (current) use of aspirin; Z79.4 Long term (current) use of insulin; Z79.899 Other long term (current) drug therapy
CPT/HCPCS: 36415; 73130; 80053; 83605; 85025; 87040; 96365; 96366; 96375; 99283; A9270; J1170; J3370; J7030; J7040

== ENCOUNTER 2018-12-12 12:16 | Emergency (ER) | payer MEDICAID ==
--- NOTE | 2018-12-12 12:58 | EDM.PDOC ---
ED HPI GENERAL MEDICAL PROBLEM - General Chief Complaint: Upper Extremity Injury/Pain Stated Complaint: RIGHT ARM PAIN PER PT Time Seen by Provider: 12/12/18 12:45 Source of Information: Reports: Patient, RN, RN Notes Reviewed History Limitations: Reports: No Limitations - History of Present Illness INITIAL COMMENTS - FREE TEXT/NARRATIVE: Pt to ER with c/o redness and pain to the right middle finger, into the hand, and up the arm. He states he was seen in the ER on 12/09/18 for redness and swelling to the right middle finger. Patient states he slammed the finger in a door and the finger began to swell and become red. Patient was given IV Vanco at that time and discharged with a script for Keflex, Bactrim, and Hydrocodone. Patient states he filled the the hydrocodone but did not fill the antibiotics because they were too expensive. Patient denies fever and chills. Admits to diarrhea. States he has not been able to sleep due to the pain. Onset: Gradual Duration: Constant, Getting Worse Location: Reports: Upper Extremity, Right Right Hand Pain Score (Numeric/FACES): 7 - Related Data Allergies Allergy/AdvReac Type Severity Reaction Status Date / Time propoxyphene napsylate Allergy Itching Verified 12/12/18 12:28 [From [place]] fish Allergy Swelling Uncoded 12/12/18 12:28 Home Meds: Home Meds Aspirin 81 mg PO DAILY 11/30/14 [History] Lisinopril 10 mg PO DAILY 06/15/16 [History] Insulin Aspart [NovoLOG] 20 units SQ BID #1 pen 06/05/18 [Rx] Insulin Detemir [Levemir] 40 unit SUBCUT DAILY #1 pen 06/05/18 [Rx] Pregabalin [Lyrica] 100 mg PO TID #20 cap 06/05/18 [Rx] Past Medical History HEENT History: Reports: Other (See Below) Other HEENT History: blurred vision at times Cardiovascular History: Reports: Hypertension Respiratory History: Reports: None Gastrointestinal History: Reports: None Genitourinary History: Reports: None Musculoskeletal History: Reports: Amputation Other Musculoskeletal History: right foot 2nd and 3rd toe, left foot 5th toe, left hand 3rd digit, plate in right hand Neurological History: Reports: None Psychiatric History: Reports: Addiction, Depression Endocrine/Metabolic History: Reports: Diabetes, Type II Hematologic History: Reports: None Immunologic History: Reports: None Oncologic (Cancer) History: Reports: None Dermatologic History: Reports: Cellulitis, Other (See Below) Other Dermatologic History: diabetic foot ulcers - Infectious Disease History Infectious Disease History: Reports: Hepatitis C, MRSA - Past Surgical History Head Surgeries/Procedures: Reports: None HEENT Surgical History: Reports: Naso-Sinus Surgery Cardiovascular Surgical History: Reports: None Respiratory Surgical History: Reports: None GI Surgical History: Reports: None Male Surgical History: Reports: None Endocrine Surgical History: Reports: None Neurological Surgical History: Reports: None Musculoskeletal Surgical History: Reports: Amputation, Arthroscopic Knee Other Musculoskeletal Surgeries/Procedures:: 2 toes amputated Social & Family History - Family History Family Medical History: Noncontributory - Tobacco Use Smoking Status *Q: Current Every Day Smoker Years of Tobacco use: 37 Packs/Tins Daily: 1 - Caffeine Use Caffeine Use: Reports: Coffee - Alcohol Use Days Per Week of Alcohol Use: 1 Number of Drinks Per Day: 3 Total Drinks Per Week: 3 - Recreational Drug Use Recreational Drug Use: Yes Drug Use in Last 12 Months: Yes Recreational Drug Type: Reports: Marijuana/Hashish Recreational Drug Use Frequency: Daily Recreational Drug Last Use: 12/05/18 - Living Situation & Occupation Living situation: Reports: Other Review of Systems - Review of Systems Review Of Systems: ROS reveals no pertinent complaints other than HPI. ED EXAM, GENERAL - Physical Exam Exam: See Below Exam Limited By: No Limitations General Appearance: Alert, WD/WN, Moderate Distress Eye Exam: Bilateral Eye: EOMI, Normal Inspection Ears: Normal External Exam, Hearing Grossly Normal Nose: Normal Inspection Throat/Mouth: Normal Inspection, Normal Voice, No Airway Compromise Head: Atraumatic, Normocephalic Neck: Normal Inspection, Supple, Non-Tender, Full Range of Motion Respiratory/Chest: No Respiratory Distress, Lungs Clear, Normal Breath Sounds, No Accessory Muscle Use, Chest Non-Tender Cardiovascular: Normal Peripheral Pulses, Regular Rate, Rhythm, No Edema, No Gallop, No JVD, No Murmur, No Rub Peripheral Pulses: 2+: Radial (L), Radial (R) GI/Abdominal: Normal Bowel Sounds, Soft, Non-Tender (Male) Exam: Deferred Rectal (Males) Exam: Deferred Back Exam: Normal Inspection, Full Range of Motion, NT Extremities: Joint Swelling (Right finger, hand), Arm Pain (Right hand/arm), Limited Range of Motion (right middle finger), Increased Warmth (Right middle finger, hand, ), Redness (right middle finger, hand, moving up the arm) Neurological: Alert, Oriented, CN II-XII Intact, Normal Cognition, Normal Gait, Normal Reflexes, No Motor/Sensory Deficits Psychiatric: Normal Affect, Normal Mood Skin Exam: Warm, Dry, Intact, Normal Color, No Rash Lymphatic: No Adenopathy Course - Vital Signs Last Recorded V/S: Last Vital Signs Temp 98.1 F 12/12/18 13:10 Pulse 124 H 12/12/18 13:10 Resp 16 12/12/18 13:10 BP 141/89 H 12/12/18 13:10 Pulse Ox 99 12/12/18 13:10 - Orders/Labs/Meds Orders: Active Orders 24 hr Category Date Time Status Blood Glucose Check, Bedside [RC] ONETIME Care 12/12/18 15:00 Active Peripheral IV Care [RC] . DIRECTED Care 12/12/18 12:52 Active CULTURE BLOOD [BC] Stat Lab 12/12/18 13:00 Received CULTURE BLOOD [BC] Stat Lab 12/12/18 13:54 Received CULTURE WOUND [RM] Urgent Lab 12/12/18 13:00 Results Blood Culture x2 Reflex Set [OM.PC] Stat Oth 12/12/18 12:46 Ordered Peripheral IV Insertion Adult [OM.PC] Stat Oth 12/12/18 12:52 Ordered Labs: Laboratory Tests 12/12/18 12/12/18 12/12/18 Range/Units 13:00 13:00 13:00 WBC 9.2 (5.0-10.0) 10^3/uL RBC 4.70 (4.6-6.2) 10^6/uL Hgb 13.3 L (14.0-18.0) g/dL Hct 39.1 L (40.0-54.0) % MCV 83.2 (80-100) fL MCH 28.3 (27.0-34.0) pg MCHC 34.0 (33.0-35.0) g/dL Plt Count 256 (150-450) 10^3/uL Neut % (Auto) 79.7 H (42.2-75.2) % Lymph % (Auto) 11.2 L (20.5-50.1) % [place] % (Auto) 8.4 H (2-8) % Eos % (Auto) 0.5 L (1.0-3.0) % Baso % (Auto) 0.2 (0.0-1.0) % Sodium 127 L (135-145) mmol/L Potassium 3.7 (3.6-5.0) mmol/L Chloride 90 L (101-111) mmol/L Carbon Dioxide 24.0 (21.0-31.0) mmol/L Anion Gap 16.7 BUN 8 (7-18) mg/dL Creatinine 0.9 (0.6-1.3) mg/dL Est Cr Clr Drug Dosing 111.37 mL/min Estimated GFR (MDRD) > 60 BUN/Creatinine Ratio 8.88 Glucose 703 H* (74-105) mg/dL POC Glucose (70-105) mg/dl Lactic Acid 2.1 (0.5-2.2) mmol/L Calcium 8.9 (8.4-10.2) mg/dl Total Bilirubin 0.7 (0.2-1.0) mg/dL AST 17 (10-42) IU/L ALT 18 (10-60) IU/L Alkaline Phosphatase 155 H (42-121) IU/L Total Protein 8.7 H (6.7-8.2) g/dl Albumin 3.2 (3.2-5.5) g/dl Globulin 5.5 Albumin/Globulin Ratio 0.58 Urine Color (YELLOW) Urine Appearance (CLEAR) Urine pH (5.0-9.0) Ur Specific [place] (1.005-1.030) Urine Protein (NEGATIVE) Urine Glucose (UA) (NEGATIVE) Urine Ketones (NEGATIVE) Urine Occult Blood (NEGATIVE) Urine Nitrite (NEGATIVE) Urine Bilirubin (NEGATIVE) Urine Urobilinogen (0.2-1.0) mg/dL Ur Leukocyte Esterase (NEGATIVE) Urine RBC /HPF Urine WBC (0-5/HPF) /HPF Ur Epithelial Cells (NOT SEEN) /HPF Urine Bacteria (0-FEW/HPF) /HPF Urine Other Urine Opiates Screen (NEGATIVE) Ur Oxycodone Screen (NEGATIVE) Urine Methadone Screen (NEGATIVE) Ur Barbiturates Screen (NEGATIVE) U Tricyclic Antidepress (NEGATIVE) Ur Phencyclidine Scrn (NEGATIVE) Ur Amphetamine Screen (NEGATIVE) U Methamphetamines Scrn (NEGATIVE) Urine MDMA Screen (NEGATIVE) U Benzodiazepines Scrn (NEGATIVE) Urine Cocaine Screen (NEGATIVE) U Marijuana (THC) Screen (NEGATIVE) Ethyl Alcohol < 5 mg/dL 12/12/18 12/12/18 12/12/18 Range/Units 13:10 13:10 15:11 WBC (5.0-10.0) 10^3/uL RBC (4.6-6.2) 10^6/uL Hgb (14.0-18.0) g/dL Hct (40.0-54.0) % MCV (80-100) fL MCH (27.0-34.0) pg MCHC (33.0-35.0) g/dL Plt Count (150-450) 10^3/uL Neut % (Auto) (42.2-75.2) % Lymph % (Auto) (20.5-50.1) % Imperial % (Auto) (2-8) % Eos % (Auto) (1.0-3.0) % Baso % (Auto) (0.0-1.0) % Sodium (135-145) mmol/L Potassium (3.6-5.0) mmol/L Chloride (101-111) mmol/L Carbon Dioxide (21.0-31.0) mmol/L Anion Gap BUN (7-18) mg/dL Creatinine (0.6-1.3) mg/dL Est Cr Clr Drug Dosing mL/min Estimated GFR (MDRD) BUN/Creatinine Ratio Glucose (74-105) mg/dL POC Glucose 298 H (70-105) mg/dl Lactic Acid (0.5-2.2) mmol/L Calcium (8.4-10.2) mg/dl Total Bilirubin (0.2-1.0) mg/dL AST (10-42) IU/L ALT (10-60) IU/L Alkaline Phosphatase (42-121) IU/L Total Protein (6.7-8.2) g/dl Albumin (3.2-5.5) g/dl Globulin Albumin/Globulin Ratio Urine Color Yellow (YELLOW) Urine Appearance Clear (CLEAR) Urine pH 6.0 (5.0-9.0) Ur Specific [place] 1.010 (1.005-1.030) Urine Protein Trace H (NEGATIVE) Urine Glucose (UA) 500 H (NEGATIVE) Urine Ketones Trace H (NEGATIVE) Urine Occult Blood Trace-intact H (NEGATIVE) Urine Nitrite Negative (NEGATIVE) Urine Bilirubin Negative (NEGATIVE) Urine Urobilinogen 0.2 (0.2-1.0) mg/dL Ur Leukocyte Esterase Negative (NEGATIVE) Urine RBC 0-5 /HPF Urine WBC 0-5 (0-5/HPF) /HPF Ur Epithelial Cells Occasional (NOT SEEN) /HPF Urine Bacteria Not seen (0-FEW/HPF) /HPF Urine Other Urine Opiates Screen Negative (NEGATIVE) Ur Oxycodone Screen Negative (NEGATIVE) Urine Methadone Screen Negative (NEGATIVE) Ur Barbiturates Screen Negative (NEGATIVE) U Tricyclic Antidepress Negative (NEGATIVE) Ur Phencyclidine Scrn Negative (NEGATIVE) Ur Amphetamine Screen Negative (NEGATIVE) U Methamphetamines Scrn Positive H (NEGATIVE) Urine MDMA Screen Negative (NEGATIVE) U Benzodiazepines Scrn Negative (NEGATIVE) Urine Cocaine Screen Negative (NEGATIVE) U Marijuana (THC) Screen Negative (NEGATIVE) Ethyl Alcohol mg/dL Meds: Medications Discontinued Medications Generic Name Dose Route Start Last Admin Trade Name Freq PRN Reason Stop Dose Admin Hydromorphone HCl 1 mg 12/12/18 16:16 12/12/18 16:22 Dilaudid IVPUSH 12/12/18 16:17 1 mg ONETIME ONE Administration Sodium Chloride 1,000 mls @ 999 mls/hr 12/12/18 13:56 12/12/18 15:33 Normal Saline IV 12/12/18 14:56 Infused .BOLUS ONE Infusion Vancomycin HCl 1.75 gm/ Sodium 500 mls @ 334 mls/hr 12/12/18 14:04 12/12/18 14:29 Chloride IV 12/12/18 15:33 334 mls/hr ONETIME ONE Administration Piperacillin Sod/Tazobactam 100 mls @ 200 mls/hr 12/12/18 14:43 12/12/18 16: 40 Sod 3.375 gm/ Sodium Chloride IV 12/12/18 15:12 200 mls/hr ONETIME ONE Administration Insulin Human Regular 10 unit 12/12/18 13:56 12/12/18 14:29 Humulin R IV 12/12/18 13:57 10 unit ONETIME ONE Administration Iopamidol 75 ml 12/12/18 14:45 Isovue-300 (61%) IVPUSH 12/12/18 14:46 ONETIME ONE Iopamidol 100 ml 12/12/18 15:29 12/12/18 15:37 Isovue-300 (61%) IVPUSH 12/12/18 15:30 100 ml ONETIME ONE Administration Oxycodone/Acetaminophen 1 tab 12/12/18 14:44 12/12/18 15:00 Percocet 325-5 Mg PO 12/12/18 14:45 1 tab ONETIME ONE Administration Sodium Chloride 10 ml 12/12/18 12:51 12/12/18 17:13 Saline Flush FLUSH 10 ml ASDIRECTED PRN Administration Keep Vein Open - Radiology Interpretation Free Text/Narrative:: Right hand xray: FINDINGS: Bones/joints: The patient is post plate and screw ORIF of a mid metacarpal boxer fracture. One of the screws has become loose and backed out, alignment and overlying subcutaneous soft tissues. There is also radiographically healed fracture deformity of the fifth proximal phalanx aerated no acute fracture is seen. Soft tissues: There is diffuse soft tissue swelling, more prominently involving the long finger. No subcutaneous emphysema is identified. IMPRESSION: There is diffuse soft tissue swelling but no soft tissue gas is seen to suggest necrotizing infection. There is no radiographic evidence for osteomyelitis. Findings suggest a component of hardware failure associated with the prior fifth metacarpal ORIF. No acute fracture is seen. Thank you for allowing us to participate in the care of your patient. Dictated and Authenticated by: Drew Cagle MD 12/12/2018 2:01 PM Central Time ([place] & [place]) Right hand CT with contrast: FINDINGS: Bones/joints: There is no CT evidence for osteomyelitis. Again noted is prior ORIF of the fifth metacarpal fracture. Redemonstrated is the loose screw within the overlying dorsum soft tissues. Soft tissues: Again noted is diffuse long finger soft tissue swelling. There is prominent fluid about the flexor tendon sheath suggesting tenosynovitis. Infectious tenosynovitis cannot be excluded given the history. There is no soft tissue gas to suggest necrotizing infection. IMPRESSION: There is diffuse long finger soft tissue swelling. There is no soft tissue gas to suggest necrotizing infection. There is no drainable collection/abscess; however, there is suggestion of diffuse tenosynovial fluid about the flexor tendon. This could represent inflammatory tenosynovitis although infectious tenosynovitis cannot be excluded.. Thank you for allowing us to participate in the care of your patient. Dictated and Authenticated by: Drew Cagle MD 12/12/2018 4:11 PM Central Time ([place] & [place]) See rad report - Re-Assessments/Exams Free Text/Narrative Re-Assessment/Exam: 12/12/18 14:38 Patient case discussed with Dr. Mcintosh who agreed to come to the ER and evaluate the patient. He states he will admit the patient to the medical floor at this time, but patient may need to be transferred out. 12/13/18 08:57 Discussed patient case with Dr. Sommer at [facility] after CT resulted. He states to have the patient sent to the ER at [facility] and he will see him there. Departure - Departure Time of Disposition: 19:24 Disposition: DC/Tfer to Acute Hospital 02 Condition: Fair Clinical Impression: Abscess, Hyperglycemia Cellulitis Qualifiers: Site of cellulitis: extremity Site of cellulitis of extremity: lower extremity Laterality: right Qualified Code(s): L03.115 - Cellulitis of right lower limb Uncontrolled diabetes mellitus Qualifiers: Diabetes mellitus type: type 1 Glycemic state: with hyperglycemia Qualified Code(s): E10.65 - Type 1 diabetes mellitus with hyperglycemia - Discharge Information *PRESCRIPTION DRUG MONITORING PROGRAM REVIEWED*: No *COPY OF PRESCRIPTION DRUG MONITORING REPORT IN PATIENT JENNIFER: No Referrals: PCP,None [Primary Care Provider] - Forms: ED Department Discharge, Interfacility Transfer [facility] - My Orders Last 24 Hours: My Active Orders 12/12/18 12:46 Blood Culture x2 Reflex Set [OM.PC] Stat 12/12/18 12:52 Peripheral IV Care [RC] . DIRECTED Peripheral IV Insertion Adult [OM.PC] Stat 12/12/18 13:00 CULTURE BLOOD [BC] Stat CULTURE WOUND [RM] Urgent 12/12/18 13:54 CULTURE BLOOD [BC] Stat 12/12/18 15:00 Blood Glucose Check, Bedside [RC] ONETIME - Assessment/Plan Last 24 Hours: My Active Orders 12/12/18 12:46 Blood Culture x2 Reflex Set [OM.PC] Stat 12/12/18 12:52 Peripheral IV Care [RC] . DIRECTED Peripheral IV Insertion Adult [OM.PC] Stat 12/12/18 13:00 CULTURE BLOOD [BC] Stat CULTURE WOUND [RM] Urgent 12/12/18 13:54 CULTURE BLOOD [BC] Stat 12/12/18 15:00 Blood Glucose Check, Bedside [RC] ONETIME
[2018-12-12 13:11] VITALS: BP 141/89; PULSE 124
[2018-12-12 13:40] LABS: ANION GAP 16.7; CHLORIDE,CL 90 mmol/L (101-111); SODIUM,NA 127 mmol/L (135-145)
[2018-12-12] MEDS ORDERED: Insulin Regular, Human 100 Units/ML 3 ML Vial IV ONE (13:56)
[2018-12-12] MEDS ORDERED: Sodium Chloride 0.9% 1,000 ML IV ONE (13:56)
[2018-12-12] MEDS ORDERED: Vancomycin 1.75 GM in Sodium Chloride 0.9% 500 ML IV ONE (14:04)
[2018-12-12] MEDS: Sodium Chloride 0.9% 10 ML Syringe FLUSH PRN ×2 (14:30→17:13)
[2018-12-12] MEDS ORDERED: Piperacillin/Tazobactam 3.375 GM in Sodium Chloride 0.9% 100 ML IV ONE (14:43)
[2018-12-12] MEDS ORDERED: Acetaminophen/oxyCODONE 325-5 MG Tab PO ONE (14:44)
[2018-12-12] MEDS ORDERED: Iopamidol 612 MG/ML 75 ML Bottle IVPUSH ONE (14:45)
[2018-12-12] MEDS ORDERED: Iopamidol 612 MG/ML 100 ML Bottle IVPUSH ONE (15:29)
[2018-12-12] MEDS ORDERED: HYDROmorphone 1 MG/ML Syringe IVPUSH ONE (16:16)
== END 2018-12-12 15:30 ==
LOC: DL.ED 12:16
DX: L03.115 Cellulitis of right lower limb (principal); L02.413 Cutaneous abscess of right upper limb; E10.65 Type 1 diabetes mellitus with hyperglycemia; I10 Essential (primary) hypertension; F17.210 Nicotine dependence, cigarettes, uncomplicated; Z88.8 Allergy status to other drugs, medicaments and biological substances; Z79.82 Long term (current) use of aspirin; Z91.013 Allergy to seafood; Z79.4 Long term (current) use of insulin
CPT/HCPCS: 36415; 73130; 73201; 80053; 80305; 80320; 81001; 82962; 83605; 85025; 87040; 87070; 96365; 96366; 96367; 96375; 99285; A9270; J1170; J1815; J2543; J3370; J7030; J7040; J7050; Q9967; 87077; 87186; G0480

== ENCOUNTER 2019-11-27 18:01 | Emergency (ER) | payer MEDICARE, MEDICAID ==
[2019-11-27 18:14] VITALS: BP 118/82; PULSE 74
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
--- NOTE | 2019-11-27 19:03 | CT ---
PROCEDURE INFORMATION: Exam: CT Maxillofacial Without Contrast Exam date and time: 11/27/2019 6:24 PM Age: 49 years old Clinical indication: Other: Left sided pain; Additional info: Beat up left jaw and head TECHNIQUE: Imaging protocol: Computed tomography images of the face without contrast. Radiation optimization: All CT scans at this facility use at least one of these dose optimization techniques: automated exposure control; mA and/or kV adjustment per patient size (includes targeted exams where dose is matched to clinical indication); or iterative reconstruction. COMPARISON: No relevant prior studies available. FINDINGS: Orbits: Gaze is divergent. Bones/joints: chronic nasal and left zygoma fracture deformity. Defect in the right lamina papyracea see a, appearance most consistent with old fracture. The orbits otherwise intact. Skull base, maxillae, zygomatic arches, pterygoid processes, hard palate, nasal bones and mandible are intact. Sinuses: Normal. No air-fluid levels. Soft tissues: Unremarkable. Dental: There are dental caries. IMPRESSION: No acute maxillofacial fracture.
--- NOTE | 2019-11-27 19:15 | CT ---
PROCEDURE INFORMATION: Exam: CT Right Lower Extremity Without Contrast, Foot Exam date and time: 11/27/2019 6:31 PM Age: 49 years old Clinical indication: Other: Open sore bottom base of 1st; Prior surgery; Surgery date: 6+ months; Additional info: Right foot R/O osteomyelitis TECHNIQUE: Imaging protocol: CT of the Right lower extremity without contrast was performed. Exam focused on the foot. Radiation optimization: All CT scans at this facility use at least one of these dose optimization techniques: automated exposure control; mA and/or kV adjustment per patient size (includes targeted exams where dose is matched to clinical indication); or iterative reconstruction. COMPARISON: CR Foot Comp Min 3V Rt 04/30/2018 4:44 PM FINDINGS: Right side: Metallic plate and screws fix the distal fibula. No fracture line seen. 2 metallic pins fix the medial malleolus. No fracture line seen. There is a small spur at the Achilles tendon insertion upon the calcaneus. The vasculature demonstrates diffuse severe atherosclerotic calcification. There is a soft tissue defect medial to the 1st metatarsophalangeal joint. This defect measures 15 mm. There is an additional defect on the plantar surface of the foot in the midportion distally. This defect measures approximately 9 mm. There is diffuse skin thickening and induration. No focal abscess seen. There is sclerosis and cystic change on both sides of the 1st metatarsal/medial cuneiform joint. Margins of the cuneiform erosion or slightly ill-defined. This fragmentation of the base of the proximal phalanx of the great toe. There is unclear whether this is acute or chronic. The 2nd and 3rd and 4th metatarsals have been amputated in their midportions. Fifth metatarsal remains intact. No 5th toe abnormality seen. Left side: The hindfoot and midfoot are intact. Fifth metatarsal is been amputated in the midportion. No skin defects seen. No bone destruction or periosteal reaction. Impression: There are 2 skin defects in the right foot as described. Diffuse cellulitis suspect. No focal abscess seen. Sclerosis and cystic change on both sides of the articulation between the base of the right 1st metatarsal and medial cuneiform. Cuneiform margins are somewhat ill-defined. Osteomyelitis/septic arthritis cannot be excluded. Fragmentation of the base of the proximal phalanx of the right great toe on the plantar surface. Fracture may be present, age indeterminate. Degenerative and postoperative changes as described. Consider MRI of the right foot for further assessment.
[2019-11-27 19:23] LABS: ANION GAP 11.2 mEq/L (7-13); CHLORIDE,CL 96 mmol/L (98-107); SODIUM,NA 128 mmol/L (136-145)
[2019-11-27] MEDS ORDERED: Sodium Chloride 0.9% 1,000 ML IV ONE (19:27)
[2019-11-27] MEDS ORDERED: Insulin Regular, Human 100 Units/ML 3 ML Vial IV ONE (19:27)
[2019-11-27] MEDS ORDERED: Clindamycin Phosphate 900 MG in Sodium Chloride 0.9% 100 ML IV ONE (19:27)
== END 2019-11-27 21:48 ==
LOC: DL.ED 18:01
DX: S00.83XA Contusion of other part of head, initial encounter (principal); E10.65 Type 1 diabetes mellitus with hyperglycemia; M86.171 Other acute osteomyelitis, right ankle and foot; I10 Essential (primary) hypertension; Z79.82 Long term (current) use of aspirin; Z79.899 Other long term (current) drug therapy; Z88.6 Allergy status to analgesic agent; Z91.018 Allergy to other foods; W22.8XXA Striking against or struck by other objects, initial encounter
CPT/HCPCS: 36415; 70450; 70486; 73700; 80053; 80307; 82962; 83605; 85025; 87040; 96361; 96365; 99285; J1815; J3490; J7030; J7050; 99284

== ENCOUNTER 2019-12-13 17:05 | Emergency (ER) | payer MEDICARE, MEDICAID ==
[2019-12-13] MEDS ORDERED: Sodium Chloride 0.9% 10 ML Syringe FLUSH PRN (17:13)
[2019-12-13] MEDS ORDERED: Lactated Ringers 1,000 ML IV ONE (17:16)
[2019-12-13] MEDS ORDERED: diphenhydrAMINE 50 MG/ML SDV IVPUSH ONE (17:16)
[2019-12-13] MEDS ORDERED: Piperacillin/Tazobactam 3.375 GM in Sodium Chloride 0.9% 100 ML IV ONE (17:17)
[2019-12-13] MEDS ORDERED: HYDROmorphone 1 MG/ML Syringe IVPUSH ONE ×2 (17:17→21:12)
[2019-12-13 17:19] VITALS: BP 87/65; PULSE 66
--- NOTE | 2019-12-13 17:44 | EDM.PDOC ---
<Joselyn Peguero Harlan - Last Filed: 12/14/19 05:00> ED HPI GENERAL MEDICAL PROBLEM - General Chief Complaint: Lower Extremity Injury/Pain Stated Complaint: AMBULANCE Time Seen by Provider: 12/13/19 17:10 - Related Data Allergies Allergy/AdvReac Type Severity Reaction Status Date / Time propoxyphene napsylate Allergy Itching Verified 12/13/19 17:12 [From [facility]] fish Allergy Swelling Uncoded 12/13/19 17:12 Home Meds: Home Meds Aspirin 81 mg PO DAILY 11/30/14 [History] Lisinopril 10 mg PO DAILY 06/15/16 [History] Pregabalin [Lyrica] 100 mg PO TID #20 cap 06/05/18 [Rx] Insulin Aspart [NovoLOG] 6 units SQ TIDMEALS 12/26/18 [History] Insulin Detemir [Levemir] 80 unit SUBCUT BID 12/26/18 [History] Departure - Departure Time of Disposition: 22:00 Disposition: DC/Tfer to Acute Hospital 02 Condition: Fair Clinical Impression: Postoperative wound abscess, Hyperglycemia due to diabetes mellitus Postoperative wound dehiscence Qualifiers: Encounter type: initial encounter Qualified Code(s): T81.31XA - Disruption of external operation (surgical) wound, not elsewhere classified, initial encounter - Discharge Information *PRESCRIPTION DRUG MONITORING PROGRAM REVIEWED*: No *COPY OF PRESCRIPTION DRUG MONITORING REPORT IN PATIENT JENNIFER: No Referrals: PCP,None [Primary Care Provider] - Forms: ED Department Discharge <Pete Escobedo - Last Filed: 12/14/19 07:22> ED HPI GENERAL MEDICAL PROBLEM - General Source of Information: Reports: Patient History Limitations: Reports: No Limitations - History of Present Illness INITIAL COMMENTS - FREE TEXT/NARRATIVE: Patient comes emergency department today with complaints of a very foul-smelling and painful right foot. This patient in the end of October had surgery in [place] due to a rather large diabetic ulcer according to the patient. He had an amputation of most of his toes at that time. He has noticed over the past week that he has had increasing pain and a very foul smell coming from his foot. He has not returned for follow-up with podiatry as he was supposed to about a week afterwards. He is not taking any antibiotics. About 4 days ago he tripped and fell injuring his left foot. He has had the dressing and the splint on since the surgery which he reports was the end of october. Today he called the ambulance because he could not take the smell anymore from his foot. The pain is getting out of control. He denies any fever or chills. No chest pain or shortness of breath or difficulty breathing. No cough or congestion. No COVID symptoms no COVID concerns. He has been wrapping his right lower extremity is a plastic bag the last few days because he can't take the smell anymore at home. Right Foot Pain Score (Numeric/FACES): 8 Past Medical History HEENT History: Reports: Other (See Below) Other HEENT History: blurred vision at times Cardiovascular History: Reports: Hypertension Respiratory History: Reports: None Gastrointestinal History: Reports: None Genitourinary History: Reports: None Musculoskeletal History: Reports: Amputation Other Musculoskeletal History: right foot 2nd and 3rd toe, left foot 5th toe, left hand 3rd digit, plate in right hand Neurological History: Reports: None Psychiatric History: Reports: Addiction, Depression Endocrine/Metabolic History: Reports: Diabetes, Type II Other Endocrine/Metabolic History: non-compliant with meds Hematologic History: Reports: None Immunologic History: Reports: None Oncologic (Cancer) History: Reports: None Dermatologic History: Reports: Cellulitis, Other (See Below) Other Dermatologic History: diabetic foot ulcers - Infectious Disease History Infectious Disease History: Reports: None - Past Surgical History Head Surgeries/Procedures: Reports: None HEENT Surgical History: Reports: Naso-Sinus Surgery Cardiovascular Surgical History: Reports: None Respiratory Surgical History: Reports: None GI Surgical History: Reports: None Male Surgical History: Reports: None Endocrine Surgical History: Reports: None Neurological Surgical History: Reports: None Musculoskeletal Surgical History: Reports: Amputation, Arthroscopic Knee Other Musculoskeletal Surgeries/Procedures:: 2 toes amputated Social & Family History - Family History Family Medical History: Noncontributory - Tobacco Use Smoking Status *Q: Current Every Day Smoker Years of Tobacco use: 30 Packs/Tins Daily: 0.2 - Caffeine Use Caffeine Use: Reports: Coffee - Recreational Drug Use Recreational Drug Use: Yes Recreational Drug Type: Reports: Marijuana/Hashish Recreational Drug Use Frequency: Patient Refuses To Answer - Living Situation & Occupation Living situation: Reports: Other Review of Systems - Review of Systems Review Of Systems: Comprehensive ROS is negative, except as noted in HPI. ED EXAM, GENERAL - Physical Exam Exam: See Below Free Text/Narrative:: When i enter the room I am overtaken by a rather large prominent foul rotting flesh smell from the right foot that is in a plastic bag currently. Exam Limited By: No Limitations General Appearance: Alert, WD/WN, No Apparent Distress Respiratory/Chest: No Respiratory Distress, Lungs Clear, No Accessory Muscle Use Cardiovascular: Normal Peripheral Pulses, Regular Rate, Rhythm Peripheral Pulses: 1+: Posterior Tibial (R), Dorsalis Pedis (R), 2+: Radial (L), Radial (R), Posterior Tibial (L), Dorsalis Pedis (L) GI/Abdominal: Normal Bowel Sounds, Soft, Non-Tender (Male) Exam: Deferred Rectal (Males) Exam: Deferred Extremities: No: Normal Inspection (The splint in the dressing was removed off the very foul-smelling right foot. He has a amputation of all the toes at the MTP joint. There is a very large open wound dehiscence. There is quite a bit of foul drainage as well. There is an area of abscess on the very lateral aspect of the foot as well that is very hot erythematous. There is little to no cellulitic component surrounding the area. The wound has dehisced about 2-1/2 to 3 cm top to bottom. And the entire width of the foot. There is quite a bit of pale cool nonperfused skin on the plantar surface of the foot at the area of wound dehiscence.) Neurological: Alert, Oriented Psychiatric: Normal Affect, Normal Mood Skin Exam: Warm, Dry, Intact, Normal Color Course - Vital Signs Last Recorded V/S: Last Vital Signs Temp 97.7 F 12/13/19 17:15 Pulse 66 12/13/19 17:15 Resp 16 12/13/19 17:15 BP 87/65 L 12/13/19 17:15 Pulse Ox 100 12/13/19 17:15 - Orders/Labs/Meds Orders: Active Orders 24 hr Category Date Time Status CULTURE BLOOD [BC] Stat Lab 12/13/19 17:25 Results CULTURE BLOOD [BC] Stat Lab 12/13/19 17:30 Received Blood Culture x2 Reflex Set [OM.PC] Stat Oth 12/13/19 17:13 Ordered Peripheral IV Insertion Adult [OM.PC] Stat Oth 12/13/19 17:13 Ordered Labs: Laboratory Tests 12/13/19 12/13/19 12/13/19 Range/Units 17:30 17:30 17:30 WBC 7.6 (5.0-10.0) 10^3/uL RBC 4.56 L (4.6-6.2) 10^6/uL Hgb 12.5 L (14.0-18.0) g/dL Hct 36.6 L (40.0-54.0) % MCV 80.3 (80-100) fL MCH 27.4 (27.0-34.0) pg MCHC 34.2 (33.0-35.0) g/dL Plt Count 306 (150-450) 10^3/uL Neut % (Auto) 75.3 H (42.2-75.2) % Lymph % (Auto) 20.4 L (20.5-50.1) % Roane % (Auto) 3.4 (2-8) % Eos % (Auto) 0.8 L (1.0-3.0) % Baso % (Auto) 0.1 (0.0-1.0) % Sodium 128 L (136-145) mmol/L Potassium 4.1 (3.5-5.1) mmol/L Chloride 94 L (98-107) mmol/L Carbon Dioxide 24 (21-32) mmol/L Anion Gap 14.1 H (7-13) mEq/L BUN 14 (7-18) mg/dL Creatinine 1.04 (0.70-1.30) mg/dL Est Cr Clr Drug Dosing 95.34 mL/min Estimated GFR (MDRD) > 60 BUN/Creatinine Ratio 13.5 (No establ ref range) Glucose 507 H* (74-99) mg/dL POC Glucose (70-105) mg/dl Lactic Acid 2.3 H* (0.4-2.0) mmol/L Calcium 9.0 (8.5-10.1) mg/dL Total Bilirubin 0.4 (0.2-1.0) mg/dL AST 17 (15-37) U/L ALT 33 (16-63) U/L Alkaline Phosphatase 184 H (46-116) U/L C-Reactive Protein 2.1 H (0.0-0.9) mg/dL Total Protein 8.3 H (6.4-8.2) g/dL Albumin 2.5 L (3.4-5.0) g/dL Globulin 5.8 Albumin/Globulin Ratio 0.43 12/13/19 Range/Units 19:52 WBC (5.0-10.0) 10^3/uL RBC (4.6-6.2) 10^6/uL Hgb (14.0-18.0) g/dL Hct (40.0-54.0) % MCV (80-100) fL MCH (27.0-34.0) pg MCHC (33.0-35.0) g/dL Plt Count (150-450) 10^3/uL Neut % (Auto) (42.2-75.2) % Lymph % (Auto) (20.5-50.1) % Roane % (Auto) (2-8) % Eos % (Auto) (1.0-3.0) % Baso % (Auto) (0.0-1.0) % Sodium (136-145) mmol/L Potassium (3.5-5.1) mmol/L Chloride (98-107) mmol/L Carbon Dioxide (21-32) mmol/L Anion Gap (7-13) mEq/L BUN (7-18) mg/dL Creatinine (0.70-1.30) mg/dL Est Cr Clr Drug Dosing mL/min Estimated GFR (MDRD) BUN/Creatinine Ratio (No establ ref range) Glucose (74-99) mg/dL POC Glucose 373 H (70-105) mg/dl Lactic Acid (0.4-2.0) mmol/L Calcium (8.5-10.1) mg/dL Total Bilirubin (0.2-1.0) mg/dL AST (15-37) U/L ALT (16-63) U/L Alkaline Phosphatase (46-116) U/L C-Reactive Protein (0.0-0.9) mg/dL Total Protein (6.4-8.2) g/dL Albumin (3.4-5.0) g/dL Globulin Albumin/Globulin Ratio Meds: Medications Discontinued Medications Generic Name Dose Route Start Last Admin Trade Name Freq PRN Reason Stop Dose Admin Diphenhydramine HCl 25 mg 12/13/19 17:16 12/13/19 17:57 Benadryl IVPUSH 12/13/19 17:17 25 mg ONETIME ONE Administration Hydromorphone HCl 1 mg 12/13/19 17:17 12/13/19 17:58 Dilaudid IVPUSH 12/13/19 17:18 1 mg ONETIME ONE Administration Hydromorphone HCl 1 mg 12/13/19 21:12 12/13/19 21:23 Dilaudid IVPUSH 12/13/19 21:13 1 mg ONETIME ONE Administration Lactated Ringer's 1,000 mls @ 1,000 mls/hr 12/13/19 17:16 12/13/19 18:00 Ringers, Lactated IV 12/13/19 18:15 1,000 mls/hr .BOLUS ONE Administration Piperacillin Sod/Tazobactam 100 mls @ 200 mls/hr 12/13/19 17:17 12/13/19 18:00 Sod 3.375 gm/ Sodium Chloride IV 12/13/19 17:46 200 mls/hr ONETIME ONE Administration Vancomycin HCl 1.25 gm/ Sodium 250 mls @ 167 mls/hr 12/13/19 17:17 12/13/19 19:24 Chloride IV 12/13/19 18:46 167 mls/hr ONETIME ONE Administration Lactated Ringer's 1,000 mls @ 125 mls/hr 12/13/19 19:30 12/13/19 22:07 Ringers, Lactated IV 125 mls/hr ASDIRECTED CHARITY Administration Insulin Human Regular 5 unit 12/13/19 18:17 12/13/19 19:22 Humulin R IV 12/13/19 18:18 5 unit ONETIME ONE Administration Iopamidol 100 ml 12/13/19 17:55 12/13/19 18:51 Isovue-300 (61%) IVPUSH 12/13/19 17:56 100 ml ONETIME ONE Administration Sodium Chloride 10 ml 12/13/19 17:13 12/13/19 18:02 Saline Flush FLUSH 10 ml ASDIRECTED PRN Administration Keep Vein Open - Re-Assessments/Exams Free Text/Narrative Re-Assessment/Exam: Initially blood cultures were drawn x2. 1 L LR wide open. Dilaudid 1 mg IV push. Labs are drawn. Zosyn 3.375 g IV piggyback. Vancomycin 1.25 g IV piggyback. Patients blood sugar was also aprox 500, 5 units of regular insulin were given. Patient has no elevated white count. Minimally elevated lactic acid. CT scan shows dehiscence of the wound and concerns for development of multiple d ifferent abscesses within the foot per allergy. I also note quite a bit of concerning areas through most of the metatarsals of the right foot for osteomyelitis. I called and spoke with Dr. Fitch at [facility] in [place]. HPI ER COURSE findings and concerns were relayed to him verbally over the phone. He accepted the patient in transfer at this time. Departure - Departure Time of Disposition: 19:45 Sepsis Event Note (ED) - Evaluation Sepsis Screening Result: No Definite Risk - My Orders Last 24 Hours: My Active Orders 12/13/19 17:13 Blood Culture x2 Reflex Set [OM.PC] Stat Peripheral IV Insertion Adult [OM.PC] Stat 12/13/19 17:25 CULTURE BLOOD [BC] Stat 12/13/19 17:30 CULTURE BLOOD [BC] Stat - Assessment/Plan Last 24 Hours: My Active Orders 12/13/19 17:13 Blood Culture x2 Reflex Set [OM.PC] Stat Peripheral IV Insertion Adult [OM.PC] Stat 12/13/19 17:25 CULTURE BLOOD [BC] Stat 12/13/19 17:30 CULTURE BLOOD [BC] Stat
[2019-12-13] MEDS ORDERED: Iopamidol 612 MG/ML 100 ML Bottle IVPUSH ONE (17:55)
[2019-12-13 18:07] LABS: ANION GAP 14.1 mEq/L (7-13); CHLORIDE,CL 94 mmol/L (98-107); SODIUM,NA 128 mmol/L (136-145)
[2019-12-13] MEDS ORDERED: Insulin Regular, Human 100 Units/ML 3 ML Vial IV ONE (18:17)
--- NOTE | 2019-12-13 19:21 | CT ---
PROCEDURE INFORMATION: Exam: CT Right Lower Extremity With Contrast, Foot Exam date and time: 12/13/2019 5:22 PM Age: 49 years old Clinical indication: Condition or disease; Other: Wound; Additional info: Wound dehishence abscess nec fas? TECHNIQUE: Imaging protocol: CT of the Right lower extremity with intravenous contrast was performed. Exam focused on the foot. Radiation optimization: All CT scans at this facility use at least one of these dose optimization techniques: automated exposure control; mA and/or kV adjustment per patient size (includes targeted exams where dose is matched to clinical indication); or iterative reconstruction. Contrast material: [id number]; Contrast volume: 100 ml; Contrast route: INTRAVENOUS (IV); COMPARISON: CT Foot wo Cont Rt 11/27/2019 6:31 PM FINDINGS: Bones/joints: There are surgical moiz within the proximal right tibia. There has been previous surgical fixation of the distal fibula and medial malleolus. There has been transmetatarsal amputation of the forefoot. There is arthropathy of the 1st tarsometatarsal joint with multiple subchondral cysts identified, unchanged compared with the prior study. There is no bone destruction or periosteal reaction. Soft tissues: There are skin closure moiz along the posteromedial aspect of the right calf. Inferior to the staple line and further medially, there is inflammation in the subcutaneous fat with associated skin thickening. No discrete abscess collection is identified. There is no evidence of soft tissue gas. I do not see any convincing evidence for fluid along the deep fascial planes. There is a wound at the distal aspect of the foot status post amputation of the forefoot at the level of the mid metatarsal bones. There are skin closure moiz present, but the wound does not appear closed in keeping with the clinical suggestion of wound dehiscence. There is a complex fluid collection at the plantar aspect of the foot which extends from the level of the incision posteriorly between the 1st and 2nd metatarsal bones. This collection measures approximately 3.1 x 2.2 x 1.0 cm. No soft tissue gas is identified, other than at the site of the wound dehiscence. IMPRESSION: Dehiscence of the foot wound status post transmetatarsal amputation of the forefoot. There is a complex collection along the plantar aspect of the foot between the 1st and 2nd metatarsal bones measuring 3.1 x 2.2 x 1.0 cm which could represent a developing abscess.
[2019-12-13] MEDS ORDERED: Lactated Ringers 1,000 ML IV SCH (19:30)
== END 2019-12-13 22:21 ==
LOC: DL.ED 17:05
DX: T87.81 Dehiscence of amputation stump (principal); T81.49XA Infection following a procedure, other surgical site, initial encounter; L02.611 Cutaneous abscess of right foot; E11.621 Type 2 diabetes mellitus with foot ulcer; I10 Essential (primary) hypertension; F17.210 Nicotine dependence, cigarettes, uncomplicated; Z79.82 Long term (current) use of aspirin; Z79.4 Long term (current) use of insulin; Z88.5 Allergy status to narcotic agent; Z79.899 Other long term (current) drug therapy
CPT/HCPCS: 36415; 73701; 80053; 82962; 83605; 85025; 86140; 87040; 96361; 96365; 96367; 96375; 96376; 99284; 99285; J1170; J1200; J1815; J2543; J3370; J7050; J7120; Q9967

== ENCOUNTER 2021-08-25 08:45 | Emergency (ER) | payer MEDICARE, MEDICAID ==
[2021-08-25 09:14] VITALS: BP 126/81; PULSE 59
[2021-08-25] MEDS ORDERED: Acetaminophen 500 MG Tab PO ONE (09:39)
[2021-08-25 09:46] LABS: PTT,PARTIAL THROMBOPLSTIN TIME 26.8 SEC (22.0-34.0)
[2021-08-25 09:52] LABS: ANION GAP 10.4 mEq/L (7-13); CHLORIDE,CL 109 mmol/L (98-107); SODIUM,NA 144 mmol/L (136-145)
[2021-08-25 10:04] LABS: CORONAVIRUS COVID-19 NAA NEGATIVE (NEGATIVE); RESPIRATORY SYNCYTIAL VIR NAA NEGATIVE (NEGATIVE)
[2021-08-25] MEDS ORDERED: Iopamidol 755 Mg/ML 100 ML Bottle IVPUSH ONE (10:49)
== END 2021-08-25 12:10 | disposition home or self-care (01) ==
LOC: DL.ED 08:45
DX: K80.20 Calculus of gallbladder without cholecystitis without obstruction (principal); S80.812A Abrasion, left lower leg, initial encounter; E11.9 Type 2 diabetes mellitus without complications; I10 Essential (primary) hypertension; F17.210 Nicotine dependence, cigarettes, uncomplicated; Z88.8 Allergy status to other drugs, medicaments and biological substances; Z91.013 Allergy to seafood; Z79.82 Long term (current) use of aspirin; Z79.899 Other long term (current) drug therapy; Z79.4 Long term (current) use of insulin; Z20.822 Contact with and (suspected) exposure to COVID-19
CPT/HCPCS: 0241U; 36415; 71045; 71260; 80053; 80307; 82150; 82947; 83605; 83690; 83880; 84443; 84484; 85025; 85379; 85610; 85730; 86140; 93005; 99285; A9270; Q9967

== ENCOUNTER 2021-09-06 15:20 | Emergency (ER) | payer MEDICARE, MEDICAID ==
[2021-09-06 15:27] VITALS: BP 117/70; PULSE 100
[2021-09-06 16:16] LABS: ANION GAP 10.9 mEq/L (7-13); CHLORIDE,CL 105 mmol/L (98-107); SODIUM,NA 138 mmol/L (136-145)
[2021-09-06 16:20] LABS: ACETAMINOPHEN 0 ug/mL (10-30 (Therapeutic)); ESTIMATED GFR > 60
[2021-09-06 16:36] LABS: AMPHETAMINES,URINE NEGATIVE (NEGATIVE); BARBITURATES,URINE NEGATIVE (NEGATIVE); BENZODIAZEPINE,URINE NEGATIVE (NEGATIVE); MDMA (ECSTASY), URINE NEGATIVE (NEGATIVE); METHADONE,URINE NEGATIVE (NEGATIVE); METHAMPHETAMINES,URINE POSITIVE (NEGATIVE); OPIATES,URINE NEGATIVE (NEGATIVE); OXYCODONE,URINE NEGATIVE (NEGATIVE); PHENCYCLIDINE,URINE NEGATIVE (NEGATIVE); TCA,URINE NEGATIVE (NEGATIVE)
== END 2021-09-06 18:57 | disposition home or self-care (01) ==
LOC: DL.ED 15:20
DX: S80.211A Abrasion, right knee, initial encounter (principal); R45.851 Suicidal ideations; F32.9 Major depressive disorder, single episode, unspecified; F15.10 Other stimulant abuse, uncomplicated; I10 Essential (primary) hypertension; E11.9 Type 2 diabetes mellitus without complications; F17.210 Nicotine dependence, cigarettes, uncomplicated; Z79.82 Long term (current) use of aspirin; Z79.899 Other long term (current) drug therapy; Z79.4 Long term (current) use of insulin; Z88.6 Allergy status to analgesic agent; Z91.013 Allergy to seafood; X58.XXXA Exposure to other specified factors, initial encounter
CPT/HCPCS: 36415; 80053; 80143; 80179; 80305-QW; 80307; 82947; 85025; 99284